=== PATIENT | female | born 1940 | race Caucasian/White ===

== ENCOUNTER → 2017-01-04 | Outpatient (CLI) | payer MEDICARE, OTHER ==
[2014-11-05 12:40] VITALS: BP 135/74
[~2017-01-04] MED LIST: APIX5TAB PO; ASPI-482 PO; BUDE10.2 IH; CALC-31 PO; CYCL10TA2 PO; DILT180C29 PO; LEVO50TA5 PO; METO-239 PO; MULT-245 PO; NAPR250T6 PO; OMEG500C3 PO; OMEP20CA9 PO; PREN1CAP17 PO; PROAIR HFA8.5 GM IH; TRAM50TA PO; TRIA1CAP3 PO
--- NOTE | 2017-01-04 10:59 | CARD ---
APPROVED REPORT EXAM: Two-dimensional and M-mode echocardiogram with Doppler and color Doppler. Other Information Quality : Average INDICATION A-FIB 2D DIMENSIONS RVDd2.1 (2.9-3.5cm)Left Atrium(2D)3.5 (1.6-4.0cm) IVSd1.2 (0.7-1.1cm)Aortic Root(2D)2.9 (2.0-3.7cm) LVDd4.4 (3.9-5.9cm)LVOT Diameter1.9 (1.8-2.4cm) PWd1.3 (0.7-1.1cm)LVDs2.5 (2.5-4.0cm) SV73.3 mlLVEF(%)55.0 (>50%) Aortic Valve AoV Peak Reese.113.4cm/sAoV VTI23.0cm AO Peak GR.5.1mmHgLVOT Peak Reese.96.2cm/s LVOT VTI 19.08cmAO Mean GR.3mmHg ESTRELLA (VMAX)2.22kt7UWO (VTI)2.46cm2 Mitral Valve MV E Mtijmshd970.8cm/sMV DECEL VTJN436oi MV A Rftdahkd70.1cm/sMV E Mean Gr.3mmHg MV XQC57daP/A Ratio6.4 MV A Fqndspdm95hiRKH (PHT)4.60cm2 TDI E/Lateral E'7.5E/Medial E'10.7 Pulmonary Valve PV Peak Gpzbcyif10.3cm/sPV Peak Grad.3mmHg RVOT VTI9.9cm Tricuspid Valve TR P. Toglmcuh954nt/sTR Peak Gr.48mmHg Pulmonary Vein S1 Gylacfzn73.7cm/sD2 Wtsvrbld23.6cm/s LEFT VENTRICLE The left ventricle is normal size. There is borderline to mild concentric left ventricular hypertroph y. The left ventricular systolic function is normal. The ejection fraction is estimated at 55-60%. Th ere is normal LV segmental wall motion. The left ventricular diastolic function and filling is normal for age. RIGHT VENTRICLE The right ventricle is normal size. There is normal right ventricular wall thickness. The right ventr icular systolic function is normal. ATRIA The left atrium size is normal. The right atrium size is normal. The interatrial septum is intact wit h no evidence for an atrial septal defect or patent foramen ovale as noted on 2-D or Doppler imaging. AORTIC VALVE The aortic valve is normal in structure and function. Doppler and Color Flow revealed no significant aortic regurgitation. There is no significant aortic valvular stenosis. MITRAL VALVE The mitral valve is normal in structure and function. Doppler and Color Flow revealed trace to mild m itral regurgitation. TRICUSPID VALVE The tricuspid valve is normal in structure and function. Doppler and Color Flow revealed mild tricusp id regurgitation. The PA pressure was estimated at 50 mmHg. PULMONIC VALVE The pulmonary valve is normal in structure and function. Doppler and Color Flow revealed no pulmonic valvular regurgitation. GREAT VESSELS The aortic root is normal in size. Normal pulmonary venous flow (Doppler). The IVC is normal in size and collapses >50% with inspiration. PERICARDIAL EFFUSION There is no pleural effusion. There is no evidence of significant pericardial effusion. Critical Notification Critical Value: No <Conclusion> The left ventricular systolic function is normal. The ejection fraction is estimated at 55-60%. There is normal LV segmental wall motion. Trace to mild mitral regurgitation. Mild tricuspid regurgitation. The PA pressure was estimated at 50 mmHg. There is no evidence of significant pericardial effusion.
== END | disposition home or self-care (01) ==
LOC: ECHO 09:41
PROVIDERS: ATTEND Internal Medicine Cardiovascular Disease
DX: I08.1 Rheumatic disorders of both mitral and tricuspid valves (principal); I48.91 Unspecified atrial fibrillation
CPT/HCPCS: 93306

== ENCOUNTER 2018-01-10 18:22 | Inpatient (IN) | payer MEDICARE, OTHER ==
[~2018-01-10] VITALS: Ht 165.1 cm; Wt 90.7 kg
--- NOTE | 2018-01-10 19:10 | PHYS DOC ---
Past Medical History Past Medical History: A-Fib, COPD, GERD, High Cholesterol, Hypertension, Hypothyroid, Seizure, Other Additional Past Medical Histor: OBESITY,BACK PAIN,GALLSTONES,EPILEPSY(LAST 1963 ) Past Surgical History: Cholecystectomy, Hysterectomy Additional Past Surgical Histo: CATARACT IMPLANT BILAT,BREAST BX,ROOT CANNALS, OSTOTOMY Alcohol Use: Rarely Drug Use: None Adult General Chief Complaint Chief Complaint: Neck Pain HPI HPI Patient is a 77 year old female who presents with neck pain She has had progressive neck pain, since she woke up Saturday morning. Her neck hurts anytime she moves it. It radiates to both shoulders. She denies any specific trauma. Denies chest pain, shortness breath weakness or numbness. She has a history of spinal stenosis. She's had prior neck fracture with traction in the past. Review of Systems Review of Systems Constitutional: Denies fever or chills Eyes: Denies change in visual acuity, redness, or eye pain HENT: Denies nasal congestion or sore throat Respiratory: Denies cough or shortness of breath Cardiovascular: Denies chest pain or palpitations GI: Denies abdominal pain, nausea, vomiting, bloody stools or diarrhea : Denies dysuria or hematuria Musculoskeletal: With neck and upper back pain, no joint pain Integument: Denies rash or skin lesions Neurologic: Denies headache, focal weakness or sensory changes Endocrine: Denies polyuria or polydipsia All other systems were reviewed and found to be within normal limits, except as documented in this note. Current Medications Current Medications Current Medications Medications (Trade) Dose Ordered Sig/Sonny Start Time Stop Time Status Last Admin Dose Admin Ceftriaxone Sodium 1 gm/ Dextrose 50 ml @ 100 mls/hr Q24H 01/11/18 00:00 UNV Ceftriaxone Sodium 50 ml @ 100 mls/hr 1X ONCE 01/11/18 00:00 01/11/18 00:29 DC 01/11/18 00:43 100 MLS/HR Fentanyl Citrate (Fentanyl 2ml Vial) 50 mcg 1X ONCE 01/10/18 20:30 01/10/18 20:31 DC 01/10/18 20:54 50 MCG Info (CONTRAST GIVEN -- Rx MONITORING) 1 each PRN DAILY PRN 01/10/18 21:30 01/12/18 21:29 Iohexol (Omnipaque 300 Mg/ml) 100 ml 1X ONCE 01/10/18 21:45 01/10/18 21:46 DC 01/10/18 21:41 100 ML Allergies Allergies Allergies Coded Allergies Type Severity Reaction Last Updated Verified Latex, Natural Rubber Allergy Intermediate DOES NOT KNOW 11/05/14 Yes adhesive Allergy Intermediate Hives 11/05/14 Yes oxaprozin Allergy Intermediate Hives 11/05/14 Yes zinc oxide Allergy Intermediate Hives 11/04/14 Yes Physical Exam Physical Exam Constitutional: Well developed, well nourished, no acute distress, non-toxic appearance. HENT: Normocephalic, atraumatic, bilateral external ears normal, oropharynx moist, no oral exudates, nose normal. Eyes: PERRLA, EOMI, conjunctiva normal, no discharge. Neck: Normal range of motion, with marked bilateral paracervical tenderness, no stridor. Patient is unable to lift head off of bed secondary to pain. Cardiovascular: Irregularly irregular rate regular rhythm, no murmur Lungs & Thorax: Bilateral breath sounds clear to auscultation Abdomen: Bowel sounds normal, soft, no tenderness, no masses, no pulsatile masses. Skin: Warm, dry, no erythema, no rash. Back: with bilateral upper dorsal tenderness, no CVA tenderness. Extremities: No tenderness, no cyanosis, no clubbing, ROM intact, no edema. Neurologic: Alert and oriented X 3, normal motor function, normal sensory function, no focal deficits noted. Psychologic: Affect normal, judgement normal, mood normal. Current Patient Data Vital Signs Vital Signs Date Time Temp Pulse Resp B/P (MAP) Pulse Ox O2 Delivery O2 Flow Rate FiO2 01/10/18 23:49 106 148/74 (98) 95 Room Air 01/10/18 18:35 98.0 18 98.0 Lab Values Laboratory Tests Test 01/10/18 20:51 01/10/18 22:50 01/10/18 23:21 White Blood Count 16.7 x10^3/uL (4.0-11.0) H Red Blood Count 4.87 x10^6/uL (3.50-5.40) Hemoglobin 16.1 g/dL (12.0-15.5) H Hematocrit 46.2 % (36.0-47.0) Mean Corpuscular Volume 95 fL (79-100) Mean Corpuscular Hemoglobin 33 pg (25-35) Mean Corpuscular Hemoglobin Concent 35 g/dL (31-37) Red Cell Distribution Width 12.7 % (11.5-14.5) Platelet Count 179 x10^3/uL (140-400) Neutrophils (%) (Auto) 80 % (31-73) H Lymphocytes (%) (Auto) 5 % (24-48) L Monocytes (%) (Auto) 15 % (0-9) H Eosinophils (%) (Auto) 0 % (0-3) Basophils (%) (Auto) 0 % (0-3) Neutrophils # (Auto) 13.4 x10^3uL (1.8-7.7) H Lymphocytes # (Auto) 0.8 x10^3/uL (1.0-4.8) L Monocytes # (Auto) 2.5 x10^3/uL (0.0-1.1) H Eosinophils # (Auto) 0.0 x10^3/uL (0.0-0.7) Basophils # (Auto) 0.1 x10^3/uL (0.0-0.2) Segmented Neutrophils % 87 % (35-66) H Lymphocytes % 2 % (24-48) L Monocytes % 11 % (0-10) H Platelet Estimate Adequate (ADEQUATE) Prothrombin Time 17.8 SEC (11.7-14.0) H Prothrombin Time INR 1.5 (0.8-1.1) H Sodium Level 132 mmol/L (136-145) L Potassium Level 3.6 mmol/L (3.5-5.1) Chloride Level 94 mmol/L (98-107) L Carbon Dioxide Level 28 mmol/L (21-32) Anion Gap 10 (6-14) Blood Urea Nitrogen 19 mg/dL (7-20) Creatinine 1.1 mg/dL (0.6-1.0) H Estimated GFR (Cockcroft-Gault) 48.0 Glucose Level 107 mg/dL (70-99) H Calcium Level 10.5 mg/dL (8.5-10.1) H Troponin I Quantitative 0.024 ng/mL (0.000-0.055) Procalcitonin < 0.10 ng/mL (0.00-0.10) Lactic Acid Level 1.3 mmol/L (0.4-2.0) Urine Collection Type Unknown Urine Color Yellow Urine Clarity Clear Urine pH 6.0 Urine Specific [place] >=1.030 Urine Protein Negative mg/dL (NEG-TRACE) Urine Glucose (UA) Negative mg/dL (NEG) Urine Ketones (Stick) 40 mg/dL (NEG) Urine Blood Large (NEG) Urine Nitrite Positive (NEG) Urine Bilirubin Negative (NEG) Urine Urobilinogen Dipstick 1.0 mg/dL (0.2 mg/dL) Urine Leukocyte Esterase Large (NEG) Urine RBC 6-10 /HPF (0-2) Urine WBC 20-40 /HPF (0-4) Urine Squamous Epithelial Cells Mod /LPF Urine Bacteria Many /HPF (0-FEW) Laboratory Tests 01/10/18 20:51 Laboratory Tests 01/10/18 20:51 Microbiology 01/10/18 Blood Culture - Preliminary, Resulted NO GROWTH AFTER 1 DAY EKG EKG ECG 20:40 Atrial Fibrillation @ [address]-T wave changes. ST depression I II III aVF V4- V6 Radiology/Procedures Radiology/Procedures [facility] [address] [place] [address] IMAGING REPORT Signed PATIENT: NGUYỄN DOBBS ACCOUNT: [id number] : 1940 LOCATION: ER AGE: 77 SEX: F EXAM STATUS: REG ER ORD. PHYSICIAN: RILEY LUCAS MD REASON: pain PROCEDURE: CT CERVICAL SPINE WO CONTRAST CT cervical spine History: Pain, no injury. Comparison: None. Technique: Noncontrast CT of the cervical spine was performed using helical technique. Axial, sagittal, coronal reconstructions were obtained. Exposure: One or more of the following individualized dose reduction techniques were utilized for this examination: 1. Automated exposure control 2. Adjustment of the mA and/or kV according to patient size 3. Use of iterative reconstruction technique Findings: There is no evidence of acute fracture or acute malalignment involving the cervical spine. No prevertebral soft tissue swelling is identified. Multilevel degeneration is seen with facet and uncovertebral hypertrophy as well as degenerative disc disease. Large amount of pannus formation is seen involving the dens. The dens also demonstrates cystic change. Right thyroid lobe is heterogeneous and enlarged with some peripheral calcifications. Impression: 1. No evidence of acute traumatic injury involving the cervical spine. 2. Degeneration. 3. Enlarged, heterogeneous right thyroid lobe, probably from nodule. Electronically signed by: Juan Cronin MD (01/10/2018 7:52 PM) [facility] DICTATED and SIGNED BY: JUAN CRONIN MD DATE: 01/10/181947 [facility] [address] [place] [address] IMAGING REPORT Signed PATIENT: NGUYỄN DOBBS ACCOUNT: [id number] : 1940 LOCATION: ER AGE: 77 SEX: F EXAM STATUS: REG ER ORD. PHYSICIAN: RILEY LUCAS MD REASON: Rule out dissection PROCEDURE: CTA HEAD/NECK - CODE STROKE CT angiogram of the neck with intravenous contrast and CT angiogram of the head with intravenous contrast History: Pain. Rule out dissection. Comparison: CT cervical spine earlier January 10, 2018. Technique: Noncontrast CT of the head was initially performed. After administration of intravenous contrast, 60 mL Omnipaque-300, CT angiogram of the neck with attention to the arteries was performed. Axial 2-D reconstructions were obtained. Rotating 3-D volume rendered reconstructions of the neck arteries were also obtained. Sagittal and coronal 3-D MIPS were obtained of the neck arteries. Using the same bolus, CT angiogram of the head with attention to the arteries was performed. Axial 2-D reconstructions were obtained. Sagittal and coronal 3-D MIPS were obtained of the arteries. Rotating volume rendered reconstructions of the intracranial arteries were also obtained. Exposure: One or more of the following individualized dose reduction techniques were utilized for this examination: 1. Automated exposure control 2. Adjustment of the mA and/or kV according to patient size 3. Use of iterative reconstruction technique Findings: CTA of the neck: Right brachiocephalic artery and the left common carotid artery demonstrates a common origin from the aortic arch. Right brachiocephalic artery is patent. Right common carotid artery is patent. Mild calcified and noncalcified plaquing is seen involving the right carotid bulb. No significant cervical right internal carotid artery stenosis is identified. Left common carotid artery is patent. Mild calcified and noncalcified plaquing is seen involving the left carotid bulb. Cervical left internal carotid artery is patent. Cervical portions of both vertebral arteries are patent. Visualized lungs demonstrate mosaic attenuation. The right thyroid lobe demonstrates 2.0 cm low-density nodule. Bilateral parotid and submandibular glands appear symmetric. No neck lymphadenopathy is seen. CTA of the head: Noncontrast images demonstrate no evidence of acute intracranial hemorrhage. No obvious acute ischemic infarction is seen. Patchy, nonspecific white matter low-attenuation is present, probably from chronic microvascular ischemic disease. No obvious intracranial mass is appreciated. Intracranial portions of both vertebral arteries are patent. Basilar artery is patent. Bilateral posterior cerebral arteries are patent. Left posterior communicating artery is visualized. Right posterior communicating artery is not confidently identified. Terminal portions of both internal carotid arteries. Bilateral anterior and middle cerebral arteries are patent. The anterior communicating artery is thought visualized. No intracranial aneurysm is identified. Dural venous sinuses enhance appropriately. Impression: 1. Negative CT angiogram of the neck and head. No evidence of carotid or vertebral dissection. 2. Thyroid nodule. Stenosis calculations for CT, MR and conventional angiography are based upon measurement of the distal ICA diameter in accordance with the NASCET methodology. Stenosis calculations for carotid ultrasound studies are derived from validated velocity criteria which are known to correlate with the NASCET methodology. Electronically signed by: Juan Cronin MD (01/10/2018 10:01 PM) [facility] DICTATED and SIGNED BY: JUAN CRONIN MD DATE: 01/10/182150 [facility] [address] [place] [address] IMAGING REPORT Signed PATIENT: NGUYỄN DOBBS ACCOUNT: [id number] : 1940 LOCATION: ER AGE: 77 SEX: F EXAM STATUS: REG ER ORD. PHYSICIAN: RILEY LUCAS MD REASON: cough/leukocytosis PROCEDURE: PORTABLE CHEST 1V Exam: AP portable chest History: Shortness of breath. COPD. Comparison: July 12, 2014. Findings: The heart and mediastinal structures are within normal limits for size. Lungs are without infiltrate. No pleural effusion or pneumothorax is identified. Impression: 1. No acute cardiopulmonary process. Electronically signed by: Juan Cronin MD (01/10/2018 11:16 PM) [facility] DICTATED and SIGNED BY: JUAN CRONIN MD DATE: 01/10/18 2315 [facility] [address] [place] [address] IMAGING REPORT Signed PATIENT: NGUYỄN DOBBS ACCOUNT: [id number] : 1940 LOCATION: [address] [place] [address] AGE: 77 SEX: F EXAM STATUS: ADM IN ORD. PHYSICIAN: RILEY LUCAS MD REASON: back pain UTI PROCEDURE: CT ABDOMEN PELVIS WO CONTRAST EXAM: CT Abdomen and Pelvis without IV contrast CLINICAL HISTORY: back pain; uti;eval for stone. COMPARISON: none TECHNIQUE: Helical CT of the abdomen and pelvis without intravenous contrast. Axial, coronal and sagittal reformatted images were generated. PQRS compliance statement - One or more of the following individualized dose reduction techniques were utilized for this study: 1. Automated exposure control 2. Adjustment of the mA and/or kV according to patient size 3. Use of iterative reconstruction technique FINDINGS: Lack of intravenous contrast limits evaluation of solid organs, vasculature, and lymph nodes. Lower chest: Dependent opacities in the lung bases bilaterally likely atelectasis. Mild cardiomegaly. Mitral annular calcifications are seen. Abdomen and Pelvis: No focal liver lesion. Cholecystectomy clips are seen. Common bile duct measures 1.1 cm, likely physiologic in this patient postcholecystectomy. Spleen is unremarkable. Adrenal glands are normal. Pancreas is unremarkable. No focal renal lesion. Contrast material is seen within the renal collecting systems limiting evaluation for renal calculi. Within these constraints no definite renal calculus is seen and there is no hydronephrosis to suggest obstructing calculus. The bladder is distended with contrast. Moderate colonic stool content. Appendix is normal. No abdominal or pelvic ascites. No lymphadenopathy. Atherosclerotic calcifications of aorta are seen. There has been a hysterectomy. Bones: Bilateral hip joint and symphysis pubis degenerative changes are seen with chondrocalcinosis. Degenerative changes of the spine are seen with trace anterolisthesis of L3 and L4 and L4 and L5 likely degenerative. IMPRESSION: 1. Contrast material from prior IV administration is seen within the renal collecting system. This limits evaluation for renal tract calculi. Within these constraints no definite renal tract calculus is identified. No hydronephrosis. 2. No evidence for bowel obstruction. 3. No biliary ductal dilatation in this patient postcholecystectomy. Electronically signed by: Mo Philippe MD (01/11/2018 12:32 AM) [facility] DICTATED and SIGNED BY: MO PHILIPPE MD DATE: 01/11/18 0023 Course & Med Decision Making Course & Med Decision Making Pertinent Labs and Imaging studies reviewed. (See chart for details) Emergency Department Course Patient presents with progressive neck pain DDx- fracture, strain, dissection, ACS Patient was stable in the ED, 19:25 Patient was placed in c-collar by me. CT C-spine ordered 22:45 Patient's CTA head and neck were unremarkable. C-collar removed. Patient has marked neck pain, unable to move head off of bed secondary to pain. Labs remarkable for leukocytosis, U/A showed UTI. CT abdomen pelvis showed no hydronephrosis or kidney stones. Patient was given Rocephin IV. ECG and troponin showed no evidence of ACS. Noting UTI, leukocytosis and severe pain, hospitalist was paged. 06:[address] Kristi Gonzalez who agreed with admission. Dragon Disclaimer Dragon Disclaimer This electronic medical record was generated, in whole or in part, using a voice recognition dictation system. Departure Departure Impression: Primary Impression: Pyelonephritis Additional Impressions: Dehydration Leukocytosis Neck pain Weakness Disposition: ADMITTED INPATIENT Admitting Physician: Xie. Rivera Condition: STABLE Referrals: JUAN MAZARIEGOS MD (PCP) Problem Qualifiers RILEY LUCAS MD Jan 10, 2018 19:10
--- NOTE | 2018-01-10 19:55 | RAD ---
CT cervical spine History: Pain, no injury. Comparison: None. Technique: Noncontrast CT of the cervical spine was performed using helical technique. Axial, sagittal, coronal reconstructions were obtained. Exposure: One or more of the following individualized dose reduction techniques were utilized for this examination: 1. Automated exposure control 2. Adjustment of the mA and/or kV according to patient size 3. Use of iterative reconstruction technique Findings: There is no evidence of acute fracture or acute malalignment involving the cervical spine. No prevertebral soft tissue swelling is identified. Multilevel degeneration is seen with facet and uncovertebral hypertrophy as well as degenerative disc disease. Large amount of pannus formation is seen involving the dens. The dens also demonstrates cystic change. Right thyroid lobe is heterogeneous and enlarged with some peripheral calcifications. Impression: 1. No evidence of acute traumatic injury involving the cervical spine. 2. Degeneration. 3. Enlarged, heterogeneous right thyroid lobe, probably from nodule. Electronically signed by: Juan Guajardo MD (01/10/2018 7:52 PM) [facility]
[2018-01-10] MEDS ORDERED: fentaNYL PF VIAL 100 MCG/2 ML VIAL IV ONE (20:30)
[2018-01-10 21:00] LABS: BASO # 0.1 x10^3/uL (0.0-0.2); BASO % 0 % (0-3); EOS % 0 % (0-3); HEMATOCRIT 46.2 % (36.0-47.0); HEMOGLOBIN 16.1 g/dL (12.0-15.5); LYMPH # 0.8 x10^3/uL (1.0-4.8); LYMPH % 5 % (24-48); MEAN CORPUSCULAR HEMOGLOBIN 33 pg (25-35); MEAN CORPUSCULAR HGB CONC 35 g/dL (31-37); MEAN CORPUSCULAR VOLUME 95 fL (79-100); MONO # 2.5 x10^3/uL (0.0-1.1); MONO % 15 % (0-9); NEUT # 13.4 x10^3uL (1.8-7.7); NEUT % 80 % (31-73); PLATELET COUNT 179 x10^3/uL (140-400); RED BLOOD COUNT 4.87 x10^6/uL (3.50-5.40); RED CELL DISTRIBUTION WIDTH 12.7 % (11.5-14.5); WHITE BLOOD COUNT 16.7 x10^3/uL (4.0-11.0)
[2018-01-10 21:10] LABS: CALCIUM 10.5 mg/dL (8.5-10.1); CREATININE 1.1 mg/dL (0.6-1.0); POTASSIUM 3.6 mmol/L (3.5-5.1)
[2018-01-10] MEDS ORDERED: CONTRAST GIVEN. MC PRN (21:30)
[2018-01-10 21:39] LABS: % LYMPHS 2 % (24-48); % MONOS 11 % (0-10); % SEGS 87 % (35-66); PLT ESTIMATE ADEQUATE (ADEQUATE)
[2018-01-10] MEDS ORDERED: IOHEXOL 300 MG/ML 100ML VIAL. IV ONE (21:45)
--- NOTE | 2018-01-10 22:03 | EKG ---
[facility] [address] [place] [address] Test Date: 2018-01-10 Test Time: 20:44:17 Pat Name: NGUYỄN DOBBS Department: Room: Gender: F Lead Systems Architect: : 1940 Requested By: RILEY LUCAS Order Number: [id number] Reading MD: Nicholas Weems MD Measurements Intervals [place] Rate: 99 P: PA: QRS: 28 QRSD: 78 T: -20 QT: 336 QTc: 436 Interpretive Statements ATRIAL FIBRILLATION NON-SPECIFIC ST/T CHANGES Electronically Signed On 01-11-2018 13:49:48 CDT by Nicholas Weems MD
--- NOTE | 2018-01-10 22:05 | RAD ---
CT angiogram of the neck with intravenous contrast and CT angiogram of the head with intravenous contrast History: Pain. Rule out dissection. Comparison: CT cervical spine earlier January 10, 2018. Technique: Noncontrast CT of the head was initially performed. After administration of intravenous contrast, 60 mL Omnipaque-300, CT angiogram of the neck with attention to the arteries was performed. Axial 2-D reconstructions were obtained. Rotating 3-D volume rendered reconstructions of the neck arteries were also obtained. Sagittal and coronal 3-D MIPS were obtained of the neck arteries. Using the same bolus, CT angiogram of the head with attention to the arteries was performed. Axial 2-D reconstructions were obtained. Sagittal and coronal 3-D MIPS were obtained of the arteries. Rotating volume rendered reconstructions of the intracranial arteries were also obtained. Exposure: One or more of the following individualized dose reduction techniques were utilized for this examination: 1. Automated exposure control 2. Adjustment of the mA and/or kV according to patient size 3. Use of iterative reconstruction technique Findings: CTA of the neck: Right brachiocephalic artery and the left common carotid artery demonstrates a common origin from the aortic arch. Right brachiocephalic artery is patent. Right common carotid artery is patent. Mild calcified and noncalcified plaquing is seen involving the right carotid bulb. No significant cervical right internal carotid artery stenosis is identified. Left common carotid artery is patent. Mild calcified and noncalcified plaquing is seen involving the left carotid bulb. Cervical left internal carotid artery is patent. Cervical portions of both vertebral arteries are patent. Visualized lungs demonstrate mosaic attenuation. The right thyroid lobe demonstrates 2.0 cm low-density nodule. Bilateral parotid and submandibular glands appear symmetric. No neck lymphadenopathy is seen. CTA of the head: Noncontrast images demonstrate no evidence of acute intracranial hemorrhage. No obvious acute ischemic infarction is seen. Patchy, nonspecific white matter low-attenuation is present, probably from chronic microvascular ischemic disease. No obvious intracranial mass is appreciated. Intracranial portions of both vertebral arteries are patent. Basilar artery is patent. Bilateral posterior cerebral arteries are patent. Left posterior communicating artery is visualized. Right posterior communicating artery is not confidently identified. Terminal portions of both internal carotid arteries. Bilateral anterior and middle cerebral arteries are patent. The anterior communicating artery is thought visualized. No intracranial aneurysm is identified. Dural venous sinuses enhance appropriately. Impression: 1. Negative CT angiogram of the neck and head. No evidence of carotid or vertebral dissection. 2. Thyroid nodule. Stenosis calculations for CT, MR and conventional angiography are based upon measurement of the distal ICA diameter in accordance with the NASCET methodology. Stenosis calculations for carotid ultrasound studies are derived from validated velocity criteria which are known to correlate with the NASCET methodology. Electronically signed by: Juan Guajardo MD (01/10/2018 10:01 PM) [facility]
[2018-01-10 22:51] LABS: PROTHROMBIN TIME PATIENT 17.8 SEC (11.7-14.0)
--- NOTE | 2018-01-10 23:19 | RAD ---
Exam: AP portable chest History: Shortness of breath. COPD. Comparison: July 12, 2014. Findings: The heart and mediastinal structures are within normal limits for size. Lungs are without infiltrate. No pleural effusion or pneumothorax is identified. Impression: 1. No acute cardiopulmonary process. Electronically signed by: Juan Guajardo MD (01/10/2018 11:16 PM) [facility]
[2018-01-10 23:32] LABS: BILIRUBIN,URINE NEGATIVE (NEG); CLARITY,URINE CLEAR; COLOR,URINE YELLOW; NITRITE,URINE POSITIVE (NEG); PROTEIN,URINE NEGATIVE (NEG-TRACE)
[2018-01-10 23:37] LABS: BACTERIA,URINE MANY /HPF (0-FEW); SQUAMOUS EPITHELIAL CELL,UR MOD /LPF; WBC,URINE 20-40 /HPF (0-4)
[2018-01-11] VITALS (7 sets, daily range): BP systolic 99–148; BP diastolic 51–83
--- NOTE | 2018-01-11 00:36 | RAD ---
EXAM: CT Abdomen and Pelvis without IV contrast CLINICAL HISTORY: back pain; uti;eval for stone. COMPARISON: none TECHNIQUE: Helical CT of the abdomen and pelvis without intravenous contrast. Axial, coronal and sagittal reformatted images were generated. PQRS compliance statement - One or more of the following individualized dose reduction techniques were utilized for this study: 1. Automated exposure control 2. Adjustment of the mA and/or kV according to patient size 3. Use of iterative reconstruction technique FINDINGS: Lack of intravenous contrast limits evaluation of solid organs, vasculature, and lymph nodes. Lower chest: Dependent opacities in the lung bases bilaterally likely atelectasis. Mild cardiomegaly. Mitral annular calcifications are seen. Abdomen and Pelvis: No focal liver lesion. Cholecystectomy clips are seen. Common bile duct measures 1.1 cm, likely physiologic in this patient postcholecystectomy. Spleen is unremarkable. Adrenal glands are normal. Pancreas is unremarkable. No focal renal lesion. Contrast material is seen within the renal collecting systems limiting evaluation for renal calculi. Within these constraints no definite renal calculus is seen and there is no hydronephrosis to suggest obstructing calculus. The bladder is distended with contrast. Moderate colonic stool content. Appendix is normal. No abdominal or pelvic ascites. No lymphadenopathy. Atherosclerotic calcifications of aorta are seen. There has been a hysterectomy. Bones: Bilateral hip joint and symphysis pubis degenerative changes are seen with chondrocalcinosis. Degenerative changes of the spine are seen with trace anterolisthesis of L3 and L4 and L4 and L5 likely degenerative. IMPRESSION: 1. Contrast material from prior IV administration is seen within the renal collecting system. This limits evaluation for renal tract calculi. Within these constraints no definite renal tract calculus is identified. No hydronephrosis. 2. No evidence for bowel obstruction. 3. No biliary ductal dilatation in this patient postcholecystectomy. Electronically signed by: Mo Sullivan MD (01/11/2018 12:32 AM) [facility]
[2018-01-11] MEDS ORDERED: MORPHINE SULFATE 4 MG/ML VIAL. IV ONE (00:45)
[2018-01-11] MEDS ORDERED: MORPHINE SULFATE 4 MG/ML VIAL. IV PRN (00:45)
[2018-01-11] MEDS ORDERED: INFLUENZA VAX SCREEN BY RX. MC PRN (02:45)
[2018-01-11] MEDS ORDERED: METO50TA6 PO (03:20)
[2018-01-11] MEDS ORDERED: FURO20TA3 PO (03:20)
[2018-01-11] MEDS ORDERED: UMEC1DIS IH (03:20)
[2018-01-11] MEDS ORDERED: LISI10TA2 PO (03:20)
[2018-01-11] MEDS ORDERED: IV NORMAL SALINE 1000ML BAG 1,000 ML IV SCH (07:26)
[2018-01-11] MEDS: IV 1/2 NORMAL SALINE 1,000 ML IV SCH ×2 (07:26→20:00)
[2018-01-11] MEDS ORDERED: HYDROcodone/APAP 5/325MG 1 TAB TABLET PO PRN (07:30)
[2018-01-11] MEDS ORDERED: traMADol 50 MG TABLET PO PRN (07:30)
[2018-01-11] MEDS: BUDESONIDE 0.5 MG/2 ML NEBU. NEB SCH ×2 (08:53→19:35)
[2018-01-11] MEDS: ASPIRIN ENTERIC COATED 81 MG TABLET.DR. PO SCH (08:53)
[2018-01-11] MEDS: TRIAMTERENE/HCTZ 37.5/25MG TABLET. PO SCH (08:53)
[2018-01-11] MEDS: OMEGA-3 FATTY ACIDS/FISH OIL 1,000 MG CAPSULE. PO SCH (08:53)
[2018-01-11] MEDS: ALBUTEROL SULFATE 2.5 MG/3 ML NEBU. NEB SCH ×4 (08:53→19:35)
[2018-01-11] MEDS: LEVOTHYROXINE 50 MCG TABLET PO SCH (08:54)
[2018-01-11] MEDS: CALCIUM CARB/VIT D3 500/200 TABLET. PO SCH (08:54)
[2018-01-11] MEDS: APIXABAN 5 MG TABLET. PO SCH ×2 (08:54→21:00)
[2018-01-11] MEDS: LISINOPRIL 10 MG TABLET PO SCH (08:54)
[2018-01-11] MEDS: MULTIVITAMIN with MINERAL TABLET. PO SCH (08:54)
[2018-01-11] MEDS: FUROSEMIDE 20 MG TABLET PO SCH (08:55)
[2018-01-11] MEDS: METOPROLOL TART IMMED RELEASE 50 MG TABLET. PO SCH ×2 (08:55→21:00)
[2018-01-11] MEDS: PANTOPRAZOLE 40 MG TABLET.DR. PO SCH (08:55)
[2018-01-11] MEDS ORDERED: NON FORMULARY ITEM (Umeclidinium Brm/Vilanterol Tr (Anoro Ellipta 62.5-25 Mcg Inh) 1 EACH) IH SCH (09:00)
[2018-01-11] MEDS ORDERED: ENOXAPARIN 40 MG/0.4 ML SYRINGE. SQ SCH (09:00)
--- NOTE | 2018-01-11 09:57 | HP ---
ADMIT DATE: 01/11/2018 CHIEF COMPLAINT: Back pain and neck pain. HISTORY OF PRESENT ILLNESS AND HOSPITAL COURSE: The patient is a 77-year-old female who is 1-week history of progressive back pain. Her pain was generalized in the mid to low back and now has increasing neck pain, radiating to both shoulders. During ER evaluation, the patient was found to have elevated white count with evidence of pyelonephritis on exam and with urine specimen. Due to severity of symptoms and intractable pain, she was admitted for IV antibiotics, hydration and further evaluation with PT and OT modalities. PAST MEDICAL HISTORY: Significant for 1. Hypertension. 2. Hypothyroidism. 3. Esophageal reflux disease. 4. COPD with asthma. 5. Degenerative disk disease. 6. Atrial fibrillation, status post cardioversion. MEDICATIONS ON ADMISSION: Lisinopril 10 mg daily, diltiazem 360 mg daily, triamterene/hydrochlorothiazide 37.5/25 daily, metoprolol 50 mg b.i.d., Eliquis 5 mg b.i.d., Synthroid 75 mcg daily, Lasix 20 mg daily, aspirin 81 mg daily, omeprazole 20 mg daily, Ventolin HFA inhaler 2 puffs q.6 hours p.r.n. Anoro inhaler 1 puff daily, tramadol 50 mg q.6 p.r.n., vitamins daily, fish oil 1000 mg daily, calcium with vitamin D 500/400 mg vitamin D daily. PAST SURGICAL HISTORY: Significant for 1. Cataract removal and lens implants. 2. Cholecystectomy. 3. Breast biopsy. 4. Hysterectomy. FAMILY HISTORY: Mother with complications of stomach ulcers. Father with kidney failure. SOCIAL HISTORY: The patient has never smoked. She does not use alcohol. She is retired and lives with her roommate. GYNECOLOGIC HISTORY: The patient has had 2 pregnancies and deliveries. ALLERGIES: THE PATIENT EXHIBITS ALLERGIES TO ZINC OXIDE, TAPE, BANANA BOAT SUNBLOCK, POISON PETRA OAK AND SUMAC. No medications. REVIEW OF SYSTEMS: The patient was in normal health until approximately 5 days ago when she began having increasing neck and back pain. This worsened to the point where she came to Emergency Room for further evaluation. She denies any nausea, vomiting, recent weight loss, shortness of breath, chest pain, abdominal pain or night sweats. PHYSICAL EXAMINATION: GENERAL: This is a well-nourished, moderately obese female, in no apparent distress on my exam. She is alert and oriented. HEENT: Benign. NECK: Supple. CARDIAC: Regular rate and rhythm. LUNGS: Clear. ABDOMEN: Soft, nontender. EXTREMITIES: 2+ pulses without edema. NEUROLOGIC: Showed no unilateral findings. She did have some point tenderness in her flank on the right side. CT neck showed arthritis and incidental thyroid nodule on the right lobe of her thyroid, but no acute findings. ASSESSMENT: 1. Pyelonephritis. 2. Osteoarthritis of neck with exacerbation. 3. Leukocytosis. 4. Hyponatremia. PLAN: To proceed with IV antibiotics, IV fluids and PT and OT modalities. ELIZABETH MAZARIEGOS MD DR: CONCEPCIÓN/gisele JOB#: [id number] / [id number]
[2018-01-11] MEDS: LACTOBACILLUS RHAMNOSUS GG 1 CAPSULE. PO SCH (21:00)
[2018-01-11] MEDS: cefTRIAXone IV Push 1 GM VIAL. IVP SCH (21:00)
[2018-01-11] MEDS: HYDROcodone/APAP 5/325MG 1 TAB TABLET PO PRN (21:09)
[2018-01-12 03:00] VITALS: BP 151/69
[2018-01-12] MEDS: LEVOTHYROXINE 50 MCG TABLET PO SCH (05:07)
[2018-01-12] MEDS: HYDROcodone/APAP 5/325MG 1 TAB TABLET PO PRN ×4 (05:07→22:34)
[2018-01-12] MEDS: IV 1/2 NORMAL SALINE 1,000 ML IV SCH (05:08)
[2018-01-12 05:50] LABS: BASO % 0 % (0-3); EOS # 0.1 x10^3/uL (0.0-0.7); EOS % 1 % (0-3); HEMATOCRIT 42.8 % (36.0-47.0); HEMOGLOBIN 14.5 g/dL (12.0-15.5); LYMPH # 0.7 x10^3/uL (1.0-4.8); LYMPH % 8 % (24-48); MEAN CORPUSCULAR HEMOGLOBIN 33 pg (25-35); MEAN CORPUSCULAR HGB CONC 34 g/dL (31-37); MEAN CORPUSCULAR VOLUME 96 fL (79-100); MONO # 1.4 x10^3/uL (0.0-1.1); MONO % 16 % (0-9); NEUT # 6.7 x10^3uL (1.8-7.7); NEUT % 75 % (31-73); PLATELET COUNT 175 x10^3/uL (140-400); RED BLOOD COUNT 4.47 x10^6/uL (3.50-5.40)
[2018-01-12 06:04] LABS: CALCIUM 9.2 mg/dL (8.5-10.1); CREATININE 1.3 mg/dL (0.6-1.0); GFR 39.6; POTASSIUM 3.5 mmol/L (3.5-5.1)
[2018-01-12 07:00] VITALS: BP 129/72
[2018-01-12] MEDS ORDERED: IRON PO SCH (07:00)
[2018-01-12] MEDS ORDERED: DHA PO SCH (07:00)
[2018-01-12] MEDS ORDERED: DSS PO SCH (07:00)
[2018-01-12] MEDS ORDERED: PRENATAL PO SCH (07:00)
[2018-01-12] MEDS ORDERED: [UNRECOGNIZED DRUG - OTHER] PO SCH (07:00)
[2018-01-12] MEDS: BUDESONIDE 0.5 MG/2 ML NEBU. NEB SCH ×2 (07:42→20:17)
[2018-01-12] MEDS: ALBUTEROL SULFATE 2.5 MG/3 ML NEBU. NEB SCH ×4 (07:42→20:17)
[2018-01-12] MEDS: CALCIUM CARB/VIT D3 500/200 TABLET. PO SCH (08:07)
[2018-01-12] MEDS: MULTIVITAMIN with MINERAL TABLET. PO SCH (08:08)
[2018-01-12] MEDS: APIXABAN 5 MG TABLET. PO SCH ×2 (08:08→20:27)
[2018-01-12] MEDS: ASPIRIN ENTERIC COATED 81 MG TABLET.DR. PO SCH (08:08)
[2018-01-12] MEDS: TRIAMTERENE/HCTZ 37.5/25MG TABLET. PO SCH (08:08)
[2018-01-12] MEDS: LACTOBACILLUS RHAMNOSUS GG 1 CAPSULE. PO SCH ×2 (08:09→20:27)
[2018-01-12] MEDS: PANTOPRAZOLE 40 MG TABLET.DR. PO SCH (08:09)
[2018-01-12] MEDS: METOPROLOL TART IMMED RELEASE 50 MG TABLET. PO SCH ×2 (08:09→20:29)
[2018-01-12] MEDS: LISINOPRIL 10 MG TABLET PO SCH (08:10)
[2018-01-12] MEDS: OMEGA-3 FATTY ACIDS/FISH OIL 1,000 MG CAPSULE. PO SCH (08:10)
[2018-01-12 11:00] VITALS: BP 108/61
[2018-01-12] MEDS ORDERED: METHOCARBAMOL 500 MG TABLET PO PRN (13:30)
--- NOTE | 2018-01-12 14:24 | PDOC ---
PROGRESS NOTES Subjective Subjective Patient feeling better. Patient continues to have neck pain. Objective Objective Vital Signs Date Time Temp Pulse Resp B/P (MAP) Pulse Ox O2 Delivery O2 Flow Rate FiO2 01/12/18 13:35 95 Room Air 01/12/18 11:00 98.1 90 18 108/61 (77) 98.1 Intake and Output 01/12/18 07:00 Intake Total 1540 ml Balance 1540 ml Intake Oral 1540 ml # Voids 3 # Bowel Movements 1 Physical Exam Abdomen: Normal bowel sounds Heart: Regular rate Extremities: No edema General: Alert Lungs: Clear to auscultation Assessment Assessment Problems Medical Problems: (1) Dehydration Status: Acute (2) Leukocytosis Status: Acute (3) Neck pain Status: Acute (4) Pyelonephritis Status: Acute (5) Weakness Status: Acute 1. Pyelonephritis. 2. Osteoarthritis of neck with exacerbation. PAST MEDICAL HISTORY: Significant for 1. Hypertension. 2. Hypothyroidism. 3. Esophageal reflux disease. 4. COPD with asthma. 5. Degenerative disk disease. 6. Atrial fibrillation, status post cardioversion. Plan Plan of Care Continue IV antibiotics Await urine culture Proceed with PT OT eval and treat Consult Dr. Curry for neck pain Comment Review of Relevant I have reviewed the following items aaliyah (where applicable) has been applied. Labs Laboratory Tests Test 01/10/18 20:51 01/10/18 22:50 01/10/18 23:21 01/12/18 05:00 White Blood Count 16.7 x10^3/uL (4.0-11.0) 9.0 x10^3/uL (4.0-11.0) Red Blood Count 4.87 x10^6/uL (3.50-5.40) 4.47 x10^6/uL (3.50-5.40) Hemoglobin 16.1 g/dL (12.0-15.5) 14.5 g/dL (12.0-15.5) Hematocrit 46.2 % (36.0-47.0) 42.8 % (36.0-47.0) Mean Corpuscular Volume 95 fL (79-100) 96 fL (79-100) Mean Corpuscular Hemoglobin 33 pg (25-35) 33 pg (25-35) Mean Corpuscular Hemoglobin Concent 35 g/dL (31-37) 34 g/dL (31-37) Red Cell Distribution Width 12.7 % (11.5-14.5) 13.0 % (11.5-14.5) Platelet Count 179 x10^3/uL (140-400) 175 x10^3/uL (140-400) Neutrophils (%) (Auto) 80 % (31-73) 75 % (31-73) Lymphocytes (%) (Auto) 5 % (24-48) 8 % (24-48) Monocytes (%) (Auto) 15 % (0-9) 16 % (0-9) Eosinophils (%) (Auto) 0 % (0-3) 1 % (0-3) Basophils (%) (Auto) 0 % (0-3) 0 % (0-3) Neutrophils # (Auto) 13.4 x10^3uL (1.8-7.7) 6.7 x10^3uL (1.8-7.7) Lymphocytes # (Auto) 0.8 x10^3/uL (1.0-4.8) 0.7 x10^3/uL (1.0-4.8) Monocytes # (Auto) 2.5 x10^3/uL (0.0-1.1) 1.4 x10^3/uL (0.0-1.1) Eosinophils # (Auto) 0.0 x10^3/uL (0.0-0.7) 0.1 x10^3/uL (0.0-0.7) Basophils # (Auto) 0.1 x10^3/uL (0.0-0.2) 0.0 x10^3/uL (0.0-0.2) Segmented Neutrophils % 87 % (35-66) Lymphocytes % 2 % (24-48) Monocytes % 11 % (0-10) Platelet Estimate Adequate (ADEQUATE) Prothrombin Time 17.8 SEC (11.7-14.0) Prothromb Time International Ratio 1.5 (0.8-1.1) Sodium Level 132 mmol/L (136-145) 139 mmol/L (136-145) Potassium Level 3.6 mmol/L (3.5-5.1) 3.5 mmol/L (3.5-5.1) Chloride Level 94 mmol/L (98-107) 101 mmol/L (98-107) Carbon Dioxide Level 28 mmol/L (21-32) 28 mmol/L (21-32) Anion Gap 10 (6-14) 10 (6-14) Blood Urea Nitrogen 19 mg/dL (7-20) 31 mg/dL (7-20) Creatinine 1.1 mg/dL (0.6-1.0) 1.3 mg/dL (0.6-1.0) Estimated GFR (Cockcroft-Gault) 48.0 39.6 Glucose Level 107 mg/dL (70-99) 100 mg/dL (70-99) Calcium Level 10.5 mg/dL (8.5-10.1) 9.2 mg/dL (8.5-10.1) Troponin I Quantitative 0.024 ng/mL (0.000-0.055) Procalcitonin < 0.10 ng/mL (0.00-0.10) Lactic Acid Level 1.3 mmol/L (0.4-2.0) Urine Collection Type Unknown Urine Color Yellow Urine Clarity Clear Urine pH 6.0 Urine Specific [place] >=1.030 Urine Protein Negative mg/dL (NEG-TRACE) Urine Glucose (UA) Negative mg/dL (NEG) Urine Ketones (Stick) 40 mg/dL (NEG) Urine Blood Large (NEG) Urine Nitrite Positive (NEG) Urine Bilirubin Negative (NEG) Urine Urobilinogen Dipstick 1.0 mg/dL (0.2 mg/dL) Urine Leukocyte Esterase Large (NEG) Urine RBC 6-10 /HPF (0-2) Urine WBC 20-40 /HPF (0-4) Urine Squamous Epithelial Cells Mod /LPF Urine Bacteria Many /HPF (0-FEW) Laboratory Tests Test 01/12/18 05:00 White Blood Count 9.0 x10^3/uL (4.0-11.0) Red Blood Count 4.47 x10^6/uL (3.50-5.40) Hemoglobin 14.5 g/dL (12.0-15.5) Hematocrit 42.8 % (36.0-47.0) Mean Corpuscular Volume 96 fL (79-100) Mean Corpuscular Hemoglobin 33 pg (25-35) Mean Corpuscular Hemoglobin Concent 34 g/dL (31-37) Red Cell Distribution Width 13.0 % (11.5-14.5) Platelet Count 175 x10^3/uL (140-400) Neutrophils (%) (Auto) 75 % (31-73) Lymphocytes (%) (Auto) 8 % (24-48) Monocytes (%) (Auto) 16 % (0-9) Eosinophils (%) (Auto) 1 % (0-3) Basophils (%) (Auto) 0 % (0-3) Neutrophils # (Auto) 6.7 x10^3uL (1.8-7.7) Lymphocytes # (Auto) 0.7 x10^3/uL (1.0-4.8) Monocytes # (Auto) 1.4 x10^3/uL (0.0-1.1) Eosinophils # (Auto) 0.1 x10^3/uL (0.0-0.7) Basophils # (Auto) 0.0 x10^3/uL (0.0-0.2) Sodium Level 139 mmol/L (136-145) Potassium Level 3.5 mmol/L (3.5-5.1) Chloride Level 101 mmol/L (98-107) Carbon Dioxide Level 28 mmol/L (21-32) Anion Gap 10 (6-14) Blood Urea Nitrogen 31 mg/dL (7-20) Creatinine 1.3 mg/dL (0.6-1.0) Estimated GFR (Cockcroft-Gault) 39.6 Glucose Level 100 mg/dL (70-99) Calcium Level 9.2 mg/dL (8.5-10.1) Microbiology 01/10/18 Blood Culture - Preliminary, Resulted NO GROWTH AFTER 1 DAY Medications Current Medications Fentanyl Citrate (Fentanyl 2ml Vial) 50 mcg 1X ONCE IV Last administered on at 20:54; Start 01/10/18 at 20:30; Stop 01/10/18 at 20:31; Status DC Iohexol (Omnipaque 300 Mg/ml) 100 ml 1X ONCE IV Last administered on at 21:41; Start 01/10/18 at 21:45; Stop 01/10/18 at 21:46; Status DC Info (CONTRAST GIVEN -- Rx MONITORING) 1 each PRN DAILY PRN MC SEE COMMENTS; Start 01/10/18 at 21:30; Stop 01/12/18 at 21:29 Ceftriaxone Sodium 1 gm/ Dextrose 50 ml @ 100 mls/hr Q24H IV ; Start 01/11/18 at 00:00; Status UNV Ceftriaxone Sodium 50 ml @ 100 mls/hr 1X ONCE IV Last administered on at 00:43; Start 01/11/18 at 00:00; Stop 01/11/18 at 00:29; Status DC Ceftriaxone Sodium (Rocephin) 1 gm Q24H IVP Last administered on 01/11/18at 21: 00; Start 01/11/18 at 21:00 Morphine Sulfate (Morphine Sulfate) 4 mg 1X ONCE IV Last administered on 01/11at 00:43; Start 01/11/18 at 00:45; Stop 01/11/18 at 00:46; Status DC Morphine Sulfate (Morphine Sulfate) 4 mg PRN Q2HR PRN IV PAIN Last administered on 01/11/18at 09:44; Start 01/11/18 at 00:45; Stop 01/12/18 at 00 :44; Status DC Influenza Virus Vaccine (Afluria Trivalent [id number] Syringe) 0.5 ml ONCE ONCE VAX IM Last administered on 01/11/18at 09:00; Start 01/11/18 at 09:00; Stop 01/11/18 at 09:01; Status DC Info (FLU VACCINE SCREEN per RX) 1 each PRN 1X PRN MC SEE COMMENTS; Start at 02:45; Status Cancel Sodium Chloride 1,000 ml @ 100 mls/hr Q10H IV Last administered on 01/11/18at 07:26; Start 01/11/18 at 07:26; Stop 01/11/18 at 17:25; Status DC Sodium Chloride 1,000 ml @ 100 mls/hr Q10H IV Last administered on 01/12/18at 05:08; Start 01/11/18 at 07:26; Stop 01/12/18 at 13:19; Status DC Acetaminophen/ Hydrocodone Bitart (Lortab 5/325) 1 tab PRN Q4HRS PRN PO MODERATE PAIN Last administered on 01/12/18at 13:35; Start 01/11/18 at 07:30 Acetaminophen/ Hydrocodone Bitart (Lortab 5/325) 2 tab PRN Q4HRS PRN PO SEVERE PAIN; Start 01/11/18 at 07:30 Enoxaparin Sodium (Lovenox 40mg Syringe) 40 mg Q24H SQ ; Start 01/11/18 at 09: 00; Stop 01/11/18 at 09:00; Status DC Apixaban (Eliquis) 5 mg BID PO Last administered on 01/12/18at 08:08; Start at 09:00 Aspirin (Ecotrin) 81 mg DAILY08 PO Last administered on 01/12/18at 08:08; Start 01/11/18 at 08:00 Furosemide (Lasix) 20 mg QODAY PO Last administered on 01/11/18at 08:55; Start 01/11/18 at 09:00 Lisinopril (Prinivil) 10 mg DAILY PO Last administered on 01/12/18at 08:10; Start 01/11/18 at 09:00 Metoprolol Tartrate (Lopressor) 50 mg BID PO Last administered on 01/12/18at 08 :09; Start 01/11/18 at 09:00 Tramadol HCl (Ultram) 50 mg PRN Q6HRS PRN PO MILD PAIN; Start 01/11/18 at 07: 30 Calcium/Vitamin D (Oscal D 500mg/ 200uts) 1 tab DAILY08 PO Last administered on 01/12/18at 08:07; Start 01/11/18 at 08:00 Levothyroxine Sodium (Synthroid) 50 mcg DAILY06 PO Last administered on at 05:07; Start 01/11/18 at 07:45 Multivitamins (Thera M Plus) 1 tab DAILY PO Last administered on 01/12/18at 08: 08; Start 01/11/18 at 09:00 Fish Oil (Fish Oil) 1,000 mg DAILY PO Last administered on 01/12/18at 08:10; Start 01/11/18 at 09:00 Pantoprazole Sodium (Protonix) 40 mg DAILYAC PO Last administered on at 08:09; Start 01/11/18 at 07:45 Non-Formulary Medication ( #57/ Iron/Fa/Dss/Dha (Extra-Virt Plus Dha Softgel)) 1 each DAILY07 PO ; Start 01/12/18 at 07:00; Status UNV Triamterene/HCTZ (Maxzide 37.5/ 25mg) 1 tab DAILY PO Last administered on 01/12at 08:08; Start 01/11/18 at 09:00 Non-Formulary Medication (Umeclidinium Brm/Vilanterol Tr (Anoro Ellipta 62.5-25 Mcg Inh)) 1 each DAILY IH ; Start 01/11/18 at 09:00; Status UNV Albuterol Sulfate (Ventolin Neb Soln) 2.5 mg RTQID NEB Last administered on at 11:36; Start 01/11/18 at 08:00 Budesonide (Pulmicort) 0.5 mg RTBID NEB Last administered on 01/12/18at 07:42; Start 01/11/18 at 08:00 Lactobacillus Rhamnosus (Culturelle) 1 cap BID PO Last administered on at 08:09; Start 01/11/18 at 21:00 Methocarbamol (Robaxin) 500 mg TID PRN PRN PO MUSCLE SPASMS; Start 01/12/18 at 13:30 Active Scripts Active Reported Anoro Ellipta 62.5-25 Mcg Inh (Umeclidinium Brm/Vilanterol Tr) 1 Each Disk.w.dev 1 Each IH DAILY Furosemide 20 Mg Tablet 1 Tab PO QODAY Lisinopril 10 Mg Tablet 1 Tab PO DAILY Metoprolol Tartrate 50 Mg Tablet 50 Mg PO BID Eliquis (Apixaban) 5 Mg Tablet 5 Mg PO BID Omeprazole 20 Mg Capsule. 20 Mg PO DAILY07 Tramadol Hcl 50 Mg Tablet 50 Mg PO PRN Q6HRS Extra-Virt Plus Dha Softgel ( #57/Iron/Fa/Dss/Dha) 1 Each Capsule 1 Each PO DAILY07 Levothyroxine Sodium 50 Mcg Tablet 50 Mcg PO DAILY07 Fish Oil ([place]-3 Fatty Acids) 500 Mg Capsule 500 Mg PO DAILY07 Aspir 81 (Aspirin) 81 Mg Tablet. 81 Mg PO DAILY07 Multi Vitamin Daily (Multivitamin) 1 Each Tablet 1 Each PO DAILY07 Calcium 500 + D Tablet (Calcium Carbonate/Vitamin D3) 1 Each Tablet 1 Each PO DAILY07 Triamterene-Hctz 37.5-25 Mg Cp (Triamterene/Hydrochlorothiazid) 1 Each Capsule 1 Each PO DAILY07 Vitals/I & O Vital Sign - Last 24 Hours 01/11/18 01/11/18 01/11/18 01/11/18 15:00 15:59 19:00 19:36 Temp 98.6 98.5 98.6 98.5 Pulse 63 94 Resp 16 16 B/P (MAP) 114/62 (79) 119/63 (81) Pulse Ox 97 95 95 O2 Delivery Room Air Room Air Room Air Room Air 01/11/18 01/11/18 01/11/18 01/11/18 20:02 21:00 21:09 23:00 Temp 98.5 98.5 Pulse 94 105 Resp 16 B/P (MAP) 119/63 129/77 (94) Pulse Ox 95 96 O2 Delivery Room Air Room Air Room Air 01/12/18 01/12/18 01/12/18 01/12/18 03:00 05:07 07:00 07:42 Temp 98.5 97.5 98.5 97.5 Pulse 58 96 Resp 16 18 B/P (MAP) 151/69 (96) 129/72 (91) Pulse Ox 95 95 97 96 O2 Delivery Room Air Room Air Room Air Room Air 01/12/18 01/12/18 01/12/18 01/12/18 08:00 08:09 08:10 09:05 Pulse 58 58 B/P (MAP) 151/69 151/69 Pulse Ox 96 O2 Delivery Room Air Room Air 01/12/18 01/12/18 01/12/18 01/12/18 10:11 11:00 11:36 13:35 Temp 98.1 98.1 Pulse 90 Resp 18 B/P (MAP) 108/61 (77) Pulse Ox 96 95 95 O2 Delivery Room Air Room Air Room Air Room Air Intake and Output 01/11/18 01/11/18 01/12/18 15:00 23:00 07:00 Intake Total 300 ml 400 ml 840 ml Balance 300 ml 400 ml 840 ml ELIZABETH MAZARIEGOS MD Jan 12, 2018 14:24
[2018-01-12 15:00] VITALS: BP 124/67
[2018-01-12 19:00] VITALS: BP 131/72
[2018-01-12] MEDS: cefTRIAXone IV Push 1 GM VIAL. IVP SCH (20:26)
[2018-01-12 23:00] VITALS: BP 133/68
[2018-01-13 03:00] VITALS: BP 115/43
[2018-01-13] MEDS: LEVOTHYROXINE 50 MCG TABLET PO SCH (05:46)
[2018-01-13 07:00] VITALS: BP 128/62
[2018-01-13] MEDS: ALBUTEROL SULFATE 2.5 MG/3 ML NEBU. NEB SCH ×4 (07:31→19:27)
[2018-01-13] MEDS: BUDESONIDE 0.5 MG/2 ML NEBU. NEB SCH ×2 (07:31→19:27)
[2018-01-13] MEDS: METOPROLOL TART IMMED RELEASE 50 MG TABLET. PO SCH ×2 (09:31→20:24)
[2018-01-13] MEDS: TRIAMTERENE/HCTZ 37.5/25MG TABLET. PO SCH (09:31)
[2018-01-13] MEDS: OMEGA-3 FATTY ACIDS/FISH OIL 1,000 MG CAPSULE. PO SCH (09:31)
[2018-01-13] MEDS: CALCIUM CARB/VIT D3 500/200 TABLET. PO SCH (09:31)
[2018-01-13] MEDS: LACTOBACILLUS RHAMNOSUS GG 1 CAPSULE. PO SCH ×2 (09:32→20:23)
[2018-01-13] MEDS: APIXABAN 5 MG TABLET. PO SCH ×2 (09:32→20:24)
[2018-01-13] MEDS: ASPIRIN ENTERIC COATED 81 MG TABLET.DR. PO SCH (09:32)
[2018-01-13] MEDS: LISINOPRIL 10 MG TABLET PO SCH (09:32)
[2018-01-13] MEDS: MULTIVITAMIN with MINERAL TABLET. PO SCH (09:32)
[2018-01-13] MEDS: FUROSEMIDE 20 MG TABLET PO SCH (09:32)
[2018-01-13] MEDS: PANTOPRAZOLE 40 MG TABLET.DR. PO SCH (09:32)
[2018-01-13] MEDS: HYDROcodone/APAP 5/325MG 1 TAB TABLET PO PRN ×2 (09:33→16:16)
[2018-01-13] MEDS ORDERED: predniSONE 10 MG TABLET PO SCH (10:00)
--- NOTE | 2018-01-13 11:50 | CONS ---
DATE OF CONSULTATION: 01/13/2018 LOCATION: She is in room 526. ATTENDING PHYSICIAN: Dr. Garvey. REASON FOR CONSULTATION: The patient was seen at the request of Dr. Garvey for rehab evaluation. HISTORY OF PRESENT ILLNESS: This is a 77-year-old female with chronic neck and back pain, increased neck pain for the last 1 week with radiation to both upper extremities without any trouble with her bowel or bladder control. Also, she is having pain over mid and lower back. The patient was seen in the Emergency Room on 01/13/2018, was noted with elevated white cell count with evidence of pyelonephritis on physical exam and on urine specimen. The patient was admitted for further evaluation and treatment. The patient with known hypertension, hypothyroidism, gastroesophageal reflux disease, chronic obstructive pulmonary disease with asthma, degenerative disk disease of lumbar vertebrae with associated spinal stenosis, atrial fibrillation status post cardioversion, status post cataract removal and lens implant, cholecystectomy, breast biopsy, hysterectomy. Mother of complications of stomach ulcers. Father with kidney failure. She never smoked. She lives with her roommate, had stairs to get into the house, but no stairs to manage, from garage she had stairs down to the basement. The patient has been independent with her mobility and self-care skills prior to the present hospitalization. SHE IS KNOWN ALLERGIC TO ZINC OXIDE, TAPE, BANANA BOAT SUNBLOCK, POISON PETRA, OAK, SUMAC, OXAPROZIN, AND NATURAL RUBBER ADHESIVE AND LATEX. The patient had radiological studies, which revealed multilevel degenerative disk disease and degenerative joint disease of lumbar vertebrae with associated spondylolisthesis, mainly at L4-L5 and L5-S1 level, and CT scan of cervical vertebrae revealed multilevel degenerative changes, both degenerative disk disease and degenerative joint disease, large amount of pannus formation seen involving the dens with cystic changes and large heterogenous right thyroid lobe, probably from nodule. PHYSICAL EXAMINATION: Today, revealed an elderly female. She is alert, oriented to time, place, person and circumstance and follows commands appropriately. She had painful limited movements of her cervical, thoracic and lumbar spine without any significant paraspinal muscle spasm, tenderness to palpation over cervical paraspinal muscles extending over to thoracic and lumbar paraspinal muscles, over posterior shoulder girdle muscles and sacroiliac joint area. Straight leg raising test is negative bilaterally. She had 5/5 grade muscle strength in her upper and lower extremities. Deep tendon reflexes are 1-2+ and symmetrical with absent ankle jerks. She had crepitus on range of motion of both knee joints without any obvious knee joint effusion. She had pain free range of motion of both hip joints. She had positive Tinel sign over median nerve at the wrist and she had clinical evidence of degenerative joint disease involving left thumb carpometacarpal joint with deformity of left thumb and muscle atrophy involving left thenar eminence muscles. Overall, she had equal perception of touch and pinprick sensation bilaterally. She is independent with bed mobility and transfers and up walking using a roller walker. Her skin is intact at this time. ASSESSMENT: An elderly female with chronic neck and back pain from degenerative disk disease and degenerative joint disease of cervical and lumbar vertebrae with increased neck pain for the last 1 week with cervical radiculitis. No clinical evidence of cervical, thoracic or lumbar radiculopathy. She had degenerative joint disease of both knees and left thumb carpometacarpal joint without any significant discomfort, but some deformity of left thumb, clinical evidence of bilateral carpal tunnel syndrome and peripheral neuropathy. The patient with known hypertension, hypothyroidism, gastroesophageal reflux disease, chronic obstructive pulmonary disease with asthma, atrial fibrillation status post cardioversion, on Eliquis. RECOMMENDATIONS: To start her on prednisone as an anti-inflammatory medication and to ask Physical Therapy to try physical modalities and to obtain MRI scan of her cervical vertebrae. Hopefully, home with outpatient followup when medically stable in the next couple of days. Dr. Garvey, I appreciate asking me to participate in care of this interesting patient. I will be glad to follow her with you as needed for her rehabilitation. DANILO DICK MD DR: CHERI/gisele JOB#: [id number] / [id number]
[2018-01-13] MEDS ORDERED: CEPH-264 PO (13:56)
[2018-01-13] MEDS ORDERED: METH-37 PO (13:56)
[2018-01-13] MEDS ORDERED: PRED-220 PO (13:56)
--- NOTE | 2018-01-13 14:16 | RAD ---
MRI of the cervical spine without contrast 01/13/2018 CLINICAL HISTORY: Worsening neck pain which radiates down both arms for one week. TECHNIQUE: Unenhanced T1-weighted, T2-weighted and inversion recovery sagittal and gradient echo and T2-weighted axial images of the cervical spine were obtained. FINDINGS: Comparison is made to a CT scan of the cervical spine dated 01/10/2018. Mild lateral curvature of the cervical spine is seen convex to the right. There is straightening of the normal cervical lordosis. Degenerative signal changes are seen involving all of the disks of the cervical spine. Degenerative signal changes are seen within the marrow surrounding these discs. No area of abnormal signal intensity is seen involving the cervical spinal cord. At the C2-3 disc space there is a mild generalized disc bulge. Degenerative changes are seen involving the uncovertebral and facet joints, right greater than left. These findings do not result in significant central spinal canal or neural foraminal stenosis. At the C3-4 disc space there is a mild generalized disc bulge. Degenerative changes are seen involving the uncovertebral and facet joints, left greater than right. These findings efface the anterior and posterior CSF without resulting in significant central spinal canal stenosis. Mild left neural foraminal stenosis is seen. The right neural foramen is patent. At the C4-5 disc space there is a mild generalized disc bulge. Superimposed on this disc bulge is a focal central disc protrusion. This measures 2 mm in AP diameter. Degenerative changes are seen involving the uncovertebral and facet joints, left greater than right. These findings when combined do not result in significant central spinal canal stenosis. Mild to moderate left greater than right neural foraminal stenosis is seen. At the C5-6 disc space there is a mild to moderate generalized disc bulge. Degenerative changes are seen involving the facet joints bilaterally. Prominent osteophyte formation is seen projecting anteriorly from the posterior elements into the central spinal canal. These findings when combine result in moderate right greater than left central spinal canal stenosis with mild to moderate right greater than left cord impingement. Mild to moderate left greater than right neural foraminal stenosis is seen. At the C6-7 disc space there is a mild generalized disc bulge. Degenerative changes are seen involving the uncovertebral and facet joints, right greater than left. These findings when combined do not result in significant central spinal canal stenosis. Mild right neural foraminal stenosis is seen. The left neural foramen is patent. At the C7-T1 disc space there is a minimal generalized disc bulge. Degenerative changes are seen involving the facet joints bilaterally. These findings do not result in significant central spinal canal or neural foraminal stenosis. IMPRESSION: Degenerative changes are seen throughout the cervical spine. These findings result in moderate right greater than left central spinal canal stenosis with mild to moderate right greater than left cord impingement at C5-6. Multilevel neural foraminal stenosis of varying severity is seen as outlined above. Electronically signed by: Darci Combs MD (01/13/2018 2:12 PM) [facility]
[2018-01-13 15:00] VITALS: BP 120/58
--- NOTE | 2018-01-13 15:27 | DS ---
DATE OF DISCHARGE: 01/13/2018 ADMIT DIAGNOSIS: Pyelonephritis. SECONDARY DIAGNOSES: 1. C-spine spinal stenosis. 2. Leukocytosis. 3. Hyponatremia. 4. Osteoarthritis of neck. 5. Hypertension. 6. Hypothyroidism. 7. Chronic obstructive pulmonary disease/asthma. 8. History of atrial fibrillation, status post cardioversion. 9. Reflux esophagitis. HISTORY OF PRESENT ILLNESS AND HOSPITAL COURSE: This patient is a 77-year-old female who began having significant neck pain and unable to care for herself that she also had back pain and was seen in the Emergency Room and found to have elevated white count with evidence of UTI, pyelonephritis. She was admitted for IV fluids and IV antibiotics as well as PT and OT modalities and evaluation of neck pain. She improved within the first 48 hours clinically with improved leukocytosis and improved hyponatremia. Cultures are pending, but the patient was clinically improved. Therefore, plan to change to p.o. medications were made. The patient was tolerating p.o. well and PT and OT evaluated the patient and deemed the patient adequate to go home with outpatient therapy. She will follow up in the office in 1 week for continued care. DISCHARGE MEDICATIONS: She will be discharged on the following medications: Cephalexin 500 mg 2 tablets b.i.d. for 7 more days. Methocarbamol 500 mg t.i.d. p.r.n. Prednisone 10 mg 4 pills for 2 days, tapering by 10 mg every other day. Eliquis 5 mg b.i.d., aspirin 81 mg daily, calcium carbonate with vitamin D daily, Lasix 20 mg daily, levothyroxine 50 mcg daily, lisinopril 10 mg daily, metoprolol 50 mg b.i.d., multivitamin daily, omega-3 fatty acids of 500 mg daily, omeprazole 20 mg daily, vitamin daily, tramadol 50 mg q.6 hours p.r.n. Dyazide 37.5/25 one daily. Anoro Ellipta 1 puff daily. She will follow up in family practice clinic in 1 week to monitor medications and treatment and await culture results from urine culture done during hospitalization. ELIZABETH MAZARIEGOS MD DR: CONCEPCIÓN/gisele JOB#: [id number] / [id number]
[2018-01-13 19:00] VITALS: BP 119/67
[2018-01-13] MEDS: cefTRIAXone IV Push 1 GM VIAL. IVP SCH (20:20)
[2018-01-13 20:24] VITALS: BP 119/67
== END 2018-01-13 20:54 | disposition home or self-care (01) | DRG 872 ==
LOC: ER 18:22 → 5 NORTH 01-11
PROVIDERS: ADMIT Family Medicine; ATTEND Family Medicine
DX: A41.9 Sepsis, unspecified organism (principal); N12 Tubulo-interstitial nephritis, not specified as acute or chronic; E87.1 Hypo-osmolality and hyponatremia; M48.02 Spinal stenosis, cervical region; M47.812 Spondylosis without myelopathy or radiculopathy, cervical region; E03.9 Hypothyroidism, unspecified; E04.1 Nontoxic single thyroid nodule; E78.00 Pure hypercholesterolemia, unspecified; E86.0 Dehydration; G56.03 Carpal tunnel syndrome, bilateral upper limbs; G62.9 Polyneuropathy, unspecified; G89.29 Other chronic pain; I10 Essential (primary) hypertension; I48.91 Unspecified atrial fibrillation; K21.0 Gastro-esophageal reflux disease with esophagitis; J44.9 Chronic obstructive pulmonary disease, unspecified; L23.7 Allergic contact dermatitis due to plants, except food; Z96.1 Presence of intraocular lens; M17.0 Bilateral primary osteoarthritis of knee; E66.9 Obesity, unspecified; M43.10 Spondylolisthesis, site unspecified; M47.816 Spondylosis without myelopathy or radiculopathy, lumbar region; M48.00 Spinal stenosis, site unspecified; M50.30 Other cervical disc degeneration, unspecified cervical region; M51.36 Other intervertebral disc degeneration, lumbar region; M51.37 Other intervertebral disc degeneration, lumbosacral region; Z79.01 Long term (current) use of anticoagulants; Z79.82 Long term (current) use of aspirin; Z90.710 Acquired absence of both cervix and uterus; Z91.040 Latex allergy status; Z79.899 Other long term (current) drug therapy; Z68.33 Body mass index [BMI] 33.0-33.9, adult; Z90.49 Acquired absence of other specified parts of digestive tract; Z87.81 Personal history of (healed) traumatic fracture; Z88.6 Allergy status to analgesic agent; Z88.1 Allergy status to other antibiotic agents; Z88.8 Allergy status to other drugs, medicaments and biological substances; Z91.048 Other nonmedicinal substance allergy status
CPT/HCPCS: 36415; 70496; 70498; 71045; 72125; 72141; 74176; 80048; 81001; 83605; 84145; 84484; 85007; 85025; 85610; 87040; 87086; 87186; 90471; 90756; 93005; 94640; 94760; J0690; J0696; J2270; J3010; J7030; J7512; J7613; J7626; Q9967; 97110; 97116; 97530; 97535; Q2035

== ENCOUNTER → 2018-08-12 | Outpatient (CLI) | payer MEDICARE, OTHER ==
[~2018-08-12] MED LIST changes: +ALBU2.5V8 IH; +CEPH-264 PO; +FURO20TA3 PO; +LISI10TA2 PO; +METH-37 PO; +METO50TA6 PO; +OMEP20CA10 PO; -OMEP20CA9 PO; +PRED-220 PO; -PROAIR HFA8.5 GM IH; +REGADENOSON 0.4 MG/5 ML DISP.SYRIN. IV ONE; +UMEC1DIS IH
--- NOTE | 2018-08-12 11:32 | CARD ---
MR#: [id number] Date of Study: 08/12/2018 Ordering Physician: ABRAHAM HALL, Referring Physician: ABRAHAM HALL Tech: Estephanie Mercado RDCS APPROVED REPORT EXAM: Two-dimensional and M-mode echocardiogram with Doppler and color Doppler. Other Information Quality : Good Rhythm : Atrial Fibrillation INDICATION Atrial Fibrillation 2D DIMENSIONS Left Atrium(2D)4.0 (1.6-4.0cm)IVSd0.7 (0.7-1.1cm) Aortic Root(2D)3.0 (2.0-3.7cm)LVDd4.4 (3.9-5.9cm) LVOT Diameter1.7 (1.8-2.4cm)PWd0.8 (0.7-1.1cm) LVDs3.9 (2.5-4.0cm)FS (%) 27.0 % SV23.3 mlLVEF(%)55.0 (>50%) Aortic Valve AoV Peak Reese.130.7cm/sAoV VTI25.4cm AO Peak GR.6.8mmHgLVOT Peak Reese.112.5cm/s AO Mean GR.4mmHgAVA (VMAX)2.04cm2 ESTRELLA (VTI)2.85mo6QE P 1/2 Uooh237cn Tricuspid Valve TR P. Eildpued843xg/sRAP WZGRLHEZ2ltMq TR Peak Gr.06tbJwEJMW12aoAm LEFT VENTRICLE The left ventricle is normal size. There is normal left ventricular wall thickness. The left ventricu lar systolic function is normal and the ejection fraction is within normal range. The Ejection Fracti on is 55-60%. There is normal LV segmental wall motion. RIGHT VENTRICLE The right ventricle is normal size. The right ventricular systolic function is normal. ATRIA The left atrium is mildly dilated. The right atrium is mildly dilated. The interatrial septum is inta ct with no evidence for an atrial septal defect or patent foramen ovale as noted on 2-D or Doppler im aging. AORTIC VALVE The aortic valve is calcified but opens well. Doppler and Color Flow revealed trace to mild aortic re gurgitation. There is no significant aortic valvular stenosis. MITRAL VALVE The mitral valve is calcified but opens well. There is no evidence of mitral valve prolapse. There is no mitral valve stenosis. Doppler and Color-flow revealed trace mitral regurgitation. TRICUSPID VALVE The tricuspid valve is normal in structure and function. Doppler and Color Flow revealed mild tricusp id regurgitation. The PA pressure was estimated at 46 mmHg. There is no tricuspid valve stenosis. PULMONIC VALVE The pulmonic valve is not well visualized. Doppler and Color Flow revealed trace pulmonic valvular re gurgitation. There is no pulmonic valvular stenosis. GREAT VESSELS The aortic root is normal in size. The ascending aorta is not well seen. The IVC is normal in size an d collapses <50% with inspiration. PERICARDIAL EFFUSION There is no evidence of significant pericardial effusion. Critical Notification Critical Value: No <Conclusion> The left ventricle is normal size. The left ventricular systolic function is normal and the ejection fraction is within normal range. The Ejection Fraction is 55-60%. There is no significant aortic valvular stenosis. Doppler and Color Flow revealed trace to mild aortic regurgitation. Doppler and Color-flow revealed trace mitral regurgitation. Doppler and Color Flow revealed mild tricuspid regurgitation. The PA pressure was estimated at 46 mmHg. Signed by : Forest Connolly MD Electronically Approved : 08/12/2018 11:31:37
--- NOTE | 2018-08-12 11:38 | RAD ---
MR#: [id number] Date of Study: 08/12/2018 Ordering Physician: ABRAHAM HALL Referring Physician: BARBARA NATH Tech: RT Cameron (Marilyn) (N) APPROVED REPORT Test Type: Pharmacological Stress Nurse/Tech: Giuseppe MCKEON Test Indications: Afib Cardiac History: HTN, See EMR Medications: See EMR Medical History: Asthma, Seizure, See EMR Resting ECG: Afib Resting Heart Rate: 72 bpm Resting Blood Pressure: 128/61mmHg Pretest Chest Pain: No chest pain Nurse/Tech Notes Lungs clear in upper lobes, crackles in bases. Heart tones irregular. Consent: The procedure was explained to the patient in lay terms. Informed consent was witnessed. Catarino eout was entered into [employer]. History and Stress Test performed by RT Gideon (R) (N) Pharm. Details Pharmacologic stress testing was performed using 0.4mg per 5ml of regadenoson given intravenously ove r 7-10 seconds. Stress Symptoms No chest pain or symptoms. POST EXERCISE Reason for Termination: Infusion complete Max HR: 90 bpm Max Blood Pressure: 121/52mmHg Blood Pressure response to exercise: Normal blood pressure response during stress. Chest Pain: No. Arrhythmia: No. ST Change: No. INTERPRETATION Stress EKG Conclusion: The resting EKG shows atrial fibrillation with nonspecific ST-T wave changes. The stress EKG shows no significant changes from baseline. No EKG evidence of stress-induced ischemia. Imaging Protocol IMAGE PROTOCOL: Rest Tc-99m/stress Tc-99m 1 day Rest: Stress: Viability: Radiopharm.Tc99m IfxgeyvsgTi11p Sestamibi Ayhp60lRi 33mCi Duration 15min. 13min. Img Date 08/12/2018 08/12/2018 Inj-Img Hhkn92pfo. 60min. Rest Admin Site:IV - Right AntecubitalAdministrator:RT Cameron (R)(N) Stress Admin Site: IV - Right AntecubitalAdministrator: RT Schuyler Meneses)(N) STRESS DATA End Diast. Vol.85.0mlLVEDV index BSA43.0ml End Syst. Vol.17.0mlLVESV index BSA8.0ml Myocardial Beef425.0gEject. Siyraskc07.0% Stress Scores Regional WT1.00Summed WT12.00 Regional WM0.00Summed WM0.00 LV Perfusion The stress scans show no significant defects. The rest scans showed no significant defects. Nuclear imaging shows no reversible ischemia or infarct. Wall Motion Normal left ventricular systolic function with ejection fraction of greater than 70%. LV Perf. Quant 17 Seg. SSS0.00 17 Seg. SRS1.00 17 Seg. SDS0.00 Stress Defect Extent (% LAD)0.00Rest Defect Extent (% LAD)6.30Rev. Defect Extent (% LAD)0.00 Stress Defect Extent (% LCX) 0.00Rest Defect Extent (% LCX)0.00Rev. Defect Extent (% LCX)0.00 Stress Defect Extent (% RCA)0.00Rest Defect Extent (% RCA)0.00Rev. Defect Extent (% RCA)0.00 Stress Defect Extent (% JOSIAS)0.00Rest Defect Extent (% JOSIAS)2.20Rev. Defect Extent (% JOSIAS)0.00 Conclusion 1. No EKG evidence of stress-induced ischemia. 2. Nuclear imaging shows no reversible ischemia or infarct. 3. Normal left ventricular systolic function with an ejection fraction of greater than 70%. 4. Moderately low risk Lexiscan nuclear stress test. Signed by : Forest Connolly MD Electronically Approved : 08/12/2018 11:37:48
== END | disposition home or self-care (01) ==
LOC: NM 08:03
PROVIDERS: ATTEND Internal Medicine Cardiovascular Disease
DX: I08.3 Combined rheumatic disorders of mitral, aortic and tricuspid valves (principal); I48.91 Unspecified atrial fibrillation; I10 Essential (primary) hypertension; J45.909 Unspecified asthma, uncomplicated
CPT/HCPCS: 78452; 93017; 93306; A9500; J2785

== ENCOUNTER 2019-11-07 17:36 | Inpatient (IN) | payer MEDICARE, OTHER ==
[~2019-11-07] VITALS: Ht 165.1 cm; Wt 85.0 kg
[~2019-11-07 17:36] MED LIST changes: -OMEP20CA10 PO; +OMEP20CA16 PO; -REGADENOSON 0.4 MG/5 ML DISP.SYRIN. IV ONE
[2019-11-07 18:01] LABS: BASO % 0 % (0-3); EOS # 0.1 x10^3/uL (0.0-0.7); EOS % 0 % (0-3); HEMATOCRIT 48.1 % (36.0-47.0); HEMOGLOBIN 16.4 g/dL (12.0-15.5); LYMPH # 0.4 x10^3/uL (1.0-4.8); LYMPH % 2 % (24-48); MEAN CORPUSCULAR HEMOGLOBIN 33 pg (25-35); MEAN CORPUSCULAR HGB CONC 34 g/dL (31-37); MEAN CORPUSCULAR VOLUME 97 fL (79-100); MONO # 1.3 x10^3/uL (0.0-1.1); MONO % 6 % (0-9); NEUT # 20.2 x10^3/uL (1.8-7.7); NEUT % 92 % (31-73); PLATELET COUNT 252 x10^3/uL (140-400); RED BLOOD COUNT 4.94 x10^6/uL (3.50-5.40); RED CELL DISTRIBUTION WIDTH 13.3 % (11.5-14.5)
[2019-11-07 18:07] LABS: CALCIUM 9.8 mg/dL (8.5-10.1); CREATININE 1.4 mg/dL (0.6-1.0); GFR 36.2; POTASSIUM 3.6 mmol/L (3.5-5.1)
[2019-11-07 18:13] LABS: ALBUMIN 3.1 g/dL (3.4-5.0); ALBUMIN/GLOBULIN RATIO 0.9 (1.0-1.7); MAGNESIUM 1.5 mg/dL (1.8-2.4); TOTAL PROTEIN 6.5 g/dL (6.4-8.2)
[2019-11-07] MEDS ORDERED: IV NORMAL SALINE 1000ML BAG 1,000 ML IV ONE (18:15)
[2019-11-07] MEDS ORDERED: fentaNYL PF VIAL 100 MCG/2 ML VIAL IV ONE ×2 (18:15→19:30)
[2019-11-07 18:19] LABS: BILIRUBIN,URINE NEGATIVE (NEG); CLARITY,URINE CLOUDY; COLOR,URINE AMBER; NITRITE,URINE NEGATIVE (NEG); PH,URINE 6.5 (<5.0-8.0); PROTEIN,URINE 100 mg/dL (NEG-TRACE)
[2019-11-07 18:28] LABS: HYALINE CASTS, URINE MODERATE /HPF; SQUAMOUS EPITHELIAL CELL,UR MOD /LPF
[2019-11-07 18:29] LABS: AMORPHOUS SEDIMENT,UR PRESENT /HPF; BACTERIA,URINE MANY /HPF (0-FEW); GRANULAR CASTS,URINE FEW /HPF; WBC,URINE 20-40 /HPF (0-4)
[2019-11-07 18:44] LABS: % BANDS 12 % (0-9); % EOS 2 % (0-5); % MONOS 5 % (0-10); % SEGS 81 % (35-66)
[2019-11-07] MEDS ORDERED: cefTRIAXone IV Push 1 GM VIAL. IVP ONE (18:45)
[2019-11-07 18:46] LABS: PLT ESTIMATE ADEQUATE (ADEQUATE); TOXIC VACUOLATION SLIGHT
--- NOTE | 2019-11-07 19:05 | PHYS DOC ---
Past Medical History Past Medical History: A-Fib, COPD, GERD, High Cholesterol, Hypertension, Hypothyroid, Seizure, Other Additional Past Medical Histor: OBESITY,BACK PAIN,GALLSTONES,EPILEPSY Past Surgical History: Cholecystectomy, Hysterectomy Additional Past Surgical Histo: CATARACT IMPLANT BILAT,BREAST BX,ROOT CANNALS,OSTOTOMY Smoking Status: Never Smoker Alcohol Use: Rarely Drug Use: None General Adult EDM: Chief Complaint: NAUSEA/VOMITING/DIARRHA HPI: HPI: Patient is a 79 year old female brought to the emergency department via EMS with complaints of nausea, vomiting, and diarrhea that began at approximately 1400 today. Patient states that she has had at least 10 episodes of vomiting and 10 episodes of diarrhea today. She denies any blood in her stools. She complains of left-sided and lower abdominal pain, feeling lightheaded, and weak. Patient denies any fever, cough, shortness of breath, chest pain, palpitations, swelling of extremities, or dysuria. Prior to arrival EMS reports that they gave patient 300 mL of normal saline and 4 mg of IV Zofran. The patient currently denies any nausea. She denies any known exposure to anyone with COVID-19. Patient states she lives at home by herself her son comes to visit her. She currently rates her pain as 4 out of 10 on the pain scale and describes it as aching. She denies any radiation of the pain. She denies any alleviating or exacerbating factors the pain is intermittent. Review of Systems: Review of Systems: Constitutional: Denies fever or chills. [] HENT: Denies nasal congestion or sore throat. [] Respiratory: Denies cough or shortness of breath. [] Cardiovascular: Denies chest pain or edema. [] GI: See HPI : Denies dysuria. [] Musculoskeletal: Denies back pain or joint pain. [] Integument: Denies rash. [] Neurologic: Denies headache Psychiatric: Denies depression or anxiety. [] Heart Score: Risk Factors: Risk Factors: DM, Current or recent (<one month) smoker, HTN, HLP, family history of CAD, obesity. Risk Scores: Score 0 - 3: 2.5% MACE over next 6 weeks - Discharge Home Score 4 - 6: 20.3% MACE over next 6 weeks - Admit for Clinical Observation Score 7 - 10: 72.7% MACE over next 6 weeks - Early Invasive Strategies Current Medications: Current Medications Medications (Trade) Dose Ordered Sig/Sonny Start Time Stop Time Status Last Admin Dose Admin Ceftriaxone Sodium (Rocephin) 1 gm 1X ONCE 11/07/19 18:45 11/07/19 18:46 UNV Fentanyl Citrate (Fentanyl 2ml Vial) 25 mcg 1X ONCE 11/07/19 18:15 11/07/19 18:19 DC 11/07/19 18:27 25 MCG Sodium Chloride 1,000 ml @ 1,000 mls/hr 1X ONCE 11/07/19 18:15 11/07/19 19:14 11/07/19 18:27 1,000 MLS/HR Allergies: Allergies: Allergies Coded Allergies Type Severity Reaction Last Updated Verified poison gary extract Allergy Severe Anaphylaxis 01/11/18 Yes Latex, Natural Rubber Allergy Intermediate DOES NOT KNOW 11/05/14 Yes adhesive Allergy Intermediate Hives 11/05/14 Yes oxaprozin Allergy Intermediate Hives 11/05/14 Yes zinc oxide Allergy Intermediate Hives 11/04/14 Yes Physical Exam: PE: Constitutional: Well developed, well nourished, no acute distress, non-toxic appearance, obese. [] HENT: Normocephalic, atraumatic, bilateral external ears normal, nose normal. [] Eyes: PERRLA, EOMI, conjunctiva normal, no discharge. [] Neck: Normal range of motion, no stridor. [] Cardiovascular:Heart rate regular rhythm Lungs & Thorax: Respirations even and unlabored, no retractions, no respiratory distress Abdomen: soft; LUQ, LLQ, and suprapubic tenderness to palpation; no rebound tenderness, no guarding Skin: Warm, dry, no erythema, no rash. [] Extremities: No cyanosis, ROM intact, no edema. [] Neurologic: Alert and oriented X 3, no focal deficits noted. [] Psychologic: Affect normal, judgement normal, mood normal. [] Current Patient Data: Labs: Laboratory Tests Test 11/07/19 17:45 11/07/19 18:10 White Blood Count 22.0 x10^3/uL (4.0-11.0) H Red Blood Count 4.94 x10^6/uL (3.50-5.40) Hemoglobin 16.4 g/dL (12.0-15.5) H Hematocrit 48.1 % (36.0-47.0) H Mean Corpuscular Volume 97 fL (79-100) Mean Corpuscular Hemoglobin 33 pg (25-35) Mean Corpuscular Hemoglobin Concent 34 g/dL (31-37) Red Cell Distribution Width 13.3 % (11.5-14.5) Platelet Count 252 x10^3/uL (140-400) Neutrophils (%) (Auto) 92 % (31-73) H Lymphocytes (%) (Auto) 2 % (24-48) L Monocytes (%) (Auto) 6 % (0-9) Eosinophils (%) (Auto) 0 % (0-3) Basophils (%) (Auto) 0 % (0-3) Neutrophils # (Auto) 20.2 x10^3/uL (1.8-7.7) H Lymphocytes # (Auto) 0.4 x10^3/uL (1.0-4.8) L Monocytes # (Auto) 1.3 x10^3/uL (0.0-1.1) H Eosinophils # (Auto) 0.1 x10^3/uL (0.0-0.7) Basophils # (Auto) 0.0 x10^3/uL (0.0-0.2) Segmented Neutrophils % 81 % (35-66) H Band Neutrophils % 12 % (0-9) H Monocytes % 5 % (0-10) Eosinophils % 2 % (0-5) Toxic Vacuolation Slight Platelet Estimate Adequate (ADEQUATE) Sodium Level 140 mmol/L (136-145) Potassium Level 3.6 mmol/L (3.5-5.1) Chloride Level 103 mmol/L (98-107) Carbon Dioxide Level 31 mmol/L (21-32) Anion Gap 6 (6-14) Blood Urea Nitrogen 20 mg/dL (7-20) Creatinine 1.4 mg/dL (0.6-1.0) H Estimated GFR (Cockcroft-Gault) 36.2 BUN/Creatinine Ratio 14 (6-20) Glucose Level 114 mg/dL (70-99) H Calcium Level 9.8 mg/dL (8.5-10.1) Magnesium Level 1.5 mg/dL (1.8-2.4) L Total Bilirubin 1.0 mg/dL (0.2-1.0) Aspartate Amino Transferase (AST) 28 U/L (15-37) Alanine Aminotransferase (ALT) 23 U/L (14-59) Alkaline Phosphatase 183 U/L (46-116) H Total Protein 6.5 g/dL (6.4-8.2) Albumin 3.1 g/dL (3.4-5.0) L Albumin/Globulin Ratio 0.9 (1.0-1.7) L Lipase 282 U/L (73-393) Urine Collection Type Unknown Urine Color Martina Urine Clarity Cloudy Urine pH 6.5 (<5.0-8.0) Urine Specific [place] 1.010 (1.000-1.030) Urine Protein 100 mg/dL (NEG-TRACE) Urine Glucose (UA) Negative mg/dL (NEG) Urine Ketones (Stick) Negative mg/dL (NEG) Urine Blood Negative (NEG) Urine Nitrite Negative (NEG) Urine Bilirubin Negative (NEG) Urine Urobilinogen Dipstick 1.0 mg/dL (0.2 mg/dL) Urine Leukocyte Esterase Large (NEG) Urine RBC 3-5 /HPF (0-2) Urine WBC 20-40 /HPF (0-4) Urine Squamous Epithelial Cells Mod /LPF Urine Transitional Epithelial Cells Few /LPF Urine Amorphous Sediment Present /HPF Urine Bacteria Many /HPF (0-FEW) Urine Hyaline Casts Moderate /HPF Urine Granular Casts Few /HPF Laboratory Tests 11/07/19 17:45 Laboratory Tests 11/07/19 17:45 Vital Signs: Vital Signs Date Time Temp Pulse Resp B/P (MAP) Pulse Ox O2 Delivery O2 Flow Rate FiO2 11/07/19 17:36 98.4 91 20 134/78 (96) 94 Room Air 98.4 EKG: EK-A. fib rate of 85, no STEMI, read by Dr. Martinez [] Radiology/Procedures: Radiology/Procedures: PROCEDURE: CT ABDOMEN PELVIS WO CONTRAST CT ABDOMEN PELVIS WO CONTRAST INDICATION: Reason: left sided abdominal pain, diarrhea / Spl. Instructions: / History: EXAM: Noncontrast CT of the abdomen and pelvis. Coronal and sagittal reformatted images were performed. PQRS compliance statement: One or more of the following individualized dose reduction techniques were utilized for this examination: 1. Automated exposure control 2. Adjustment of the mA and/or kV according to patient size 3. Use of iterative reconstruction technique COMPARISON: 01/11/2018 FINDINGS: No free air, free fluid, or fluid collection. Lower chest: Diffuse mosaic attenuation of the lung parenchyma. Multiple noncalcified bilateral pulmonary nodules which appear stable from exam of 2018 ABDOMEN: Liver: The noncontrast liver is homogeneous in attenuation. Gallbladder and biliary: Cholecystectomy. Normal caliber bile ducts. Spleen: Normal spleen. Pancreas: The noncontrast pancreas is homogeneous in attenuation without peripancreatic inflammatory changes. Adrenal glands: Normal adrenal glands. Kidneys and ureters: No opaque urinary calculi. Normal kidneys and ureters. GI tract: The stomach is decompressed and poorly evaluated. Normal caliber small bowel. Wall thickening of the descending colon with subtle pericolic haziness. Normal appendix. Vascular structures: Normal caliber abdominal aorta. Mild aortoiliac atherosclerotic disease. Lymph nodes: No lymphadenopathy in the abdomen or pelvis. PELVIS: Genitourinary system: Normal bladder. SKELETAL STRUCTURES AND SOFT TISSUES: Degenerative changes of the spine. Grade 1 anterolisthesis at L4-5 due to facet arthropathy. IMPRESSION: 1. Wall thickening of the descending colon could be due to underdistention, however there is subtle pericolic haziness which might represent inflammation as can be seen with colitis. 2. Diffuse mosaic attenuation of the lung parenchyma, possibly due to small airways disease or pulmonary hypertension. Multiple small bilateral noncalcified pulmonary nodules appear stable from 2018 and may represent noncalcified pulmonary granulomas. Diffuse idiopathic pulmonary neuroendocrine cell hyperplasia (DIPNECH) might also be considered, which can be seen as multiple noncalcified pulmonary nodules combined with mosaic lung attenuation. Electronically signed by: Alex Bhandari MD (11/07/2019 7:47 PM) [facility] [] Course & Med Decision Making: Course & Med Decision Making Pertinent Labs and Imaging studies reviewed. (See chart for details) 1956-spoke with Dr. Huitron who is the admitting physician, and care was assumed following discussion of patient. Will admit patient for colitis, UTI, nausea, vomiting, and diarrhea. I advised Dr. Huitron that the patient had been given 1 g of Rocephin in the emergency department. I will order stool cultures per his request. Patient's vital signs stable. Patient remains afebrile, appears nontoxic, respirations even and unlabored. Patient will be admitted to the medical/ surgical floor. Patient's case and plan of care also discussed with Dr. Martinez [] Kathy Disclaimer: Kathy Disclaimer: This electronic medical record was generated, in whole or in part, using a voice recognition dictation system. Departure Departure Impression: Primary Impression: Colitis Additional Impressions: UTI (urinary tract infection) Qualified Codes: N39.0 - Urinary tract infection, site not specified Nausea vomiting and diarrhea Admitting Physician: ZAIDA ([facility]) Condition: STABLE Referrals: ELIZABETH MAZARIEGOS MD (PCP) Justicifation of Admission Dx: Justifications for Admission: Justification of Admission Dx: Yes Sepsis: Infection NITIN LÓPEZ ORNAMENT STITCHER Nov 07, 2019 19:05
--- NOTE | 2019-11-07 19:51 | RAD ---
CT ABDOMEN PELVIS WO CONTRAST INDICATION: Reason: left sided abdominal pain, diarrhea / Spl. Instructions: / History: EXAM: Noncontrast CT of the abdomen and pelvis. Coronal and sagittal reformatted images were performed. PQRS compliance statement: One or more of the following individualized dose reduction techniques were utilized for this examination: 1. Automated exposure control 2. Adjustment of the mA and/or kV according to patient size 3. Use of iterative reconstruction technique COMPARISON: 01/11/2018 FINDINGS: No free air, free fluid, or fluid collection. Lower chest: Diffuse mosaic attenuation of the lung parenchyma. Multiple noncalcified bilateral pulmonary nodules which appear stable from exam of 2018 ABDOMEN: Liver: The noncontrast liver is homogeneous in attenuation. Gallbladder and biliary: Cholecystectomy. Normal caliber bile ducts. Spleen: Normal spleen. Pancreas: The noncontrast pancreas is homogeneous in attenuation without peripancreatic inflammatory changes. Adrenal glands: Normal adrenal glands. Kidneys and ureters: No opaque urinary calculi. Normal kidneys and ureters. GI tract: The stomach is decompressed and poorly evaluated. Normal caliber small bowel. Wall thickening of the descending colon with subtle pericolic haziness. Normal appendix. Vascular structures: Normal caliber abdominal aorta. Mild aortoiliac atherosclerotic disease. Lymph nodes: No lymphadenopathy in the abdomen or pelvis. PELVIS: Genitourinary system: Normal bladder. SKELETAL STRUCTURES AND SOFT TISSUES: Degenerative changes of the spine. Grade 1 anterolisthesis at L4-5 due to facet arthropathy. IMPRESSION: 1. Wall thickening of the descending colon could be due to underdistention, however there is subtle pericolic haziness which might represent inflammation as can be seen with colitis. 2. Diffuse mosaic attenuation of the lung parenchyma, possibly due to small airways disease or pulmonary hypertension. Multiple small bilateral noncalcified pulmonary nodules appear stable from 2018 and may represent noncalcified pulmonary granulomas. Diffuse idiopathic pulmonary neuroendocrine cell hyperplasia (DIPNECH) might also be considered, which can be seen as multiple noncalcified pulmonary nodules combined with mosaic lung attenuation. Electronically signed by: Alex Bhandari MD (11/07/2019 7:47 PM) [facility]
[2019-11-07] MEDS ORDERED: ENOXAPARIN 40 MG/0.4 ML SYRINGE. SQ SCH (20:30)
[2019-11-07] MEDS ORDERED: ONDANSETRON PF 4 MG/2 ML VIAL. IV PRN (20:30)
[2019-11-07] MEDS ORDERED: cloNIDine HCL 0.1 MG TABLET PO PRN (20:30)
[2019-11-07] MEDS ORDERED: ALBUTEROL SULFATE 2.5 MG/3 ML NEBU. NEB PRN (20:30)
[2019-11-07] MEDS ORDERED: guaiFENesin ORAL 200 MG/10 ML LIQUID. PO PRN (20:30)
[2019-11-07] MEDS ORDERED: 0.9 % SODIUM CHLORIDE 10 ML DISP.SYRIN. IV PRN (20:30)
[2019-11-07] MEDS: METOPROLOL TART IMMED RELEASE 50 MG TABLET. PO SCH (21:00)
[2019-11-07] MEDS ORDERED: APIXABAN 5 MG TABLET. PO SCH (21:00)
[2019-11-07] MEDS ORDERED: ANTI-COAG MONITOR BY PHARMACY. MC PRN (21:00)
[2019-11-07] MEDS ORDERED: HYDROmorphone 2 MG/ML VIAL IV PRN (21:30)
[2019-11-07] MEDS: IV NORMAL SALINE 1000ML BAG 1,000 ML IV SCH (21:42)
[2019-11-07 23:40] VITALS: BP 93/47
[2019-11-08 02:32] VITALS: BP 101/56
[2019-11-08 06:05] LABS: FECAL OB PT POSITIVE (NEG)
[2019-11-08 07:00] VITALS: BP 102/52
[2019-11-08] MEDS ORDERED: ASPIRIN ENTERIC COATED 81 MG TABLET.DR. PO SCH (07:00)
[2019-11-08] MEDS: BUDESONIDE 0.5 MG/2 ML NEBU. NEB SCH ×2 (07:23→19:51)
[2019-11-08] MEDS: IPRATRPIUM/ALBUTEROL 0.5/2.5MG 3 ML NEBU. NEB SCH ×4 (07:23→19:51)
[2019-11-08] MEDS: CALCIUM CARB/VIT D3 500/200 TABLET. PO SCH (08:00)
[2019-11-08] MEDS: METOPROLOL TART IMMED RELEASE 50 MG TABLET. PO SCH ×2 (09:00→21:18)
[2019-11-08] MEDS: MULTIVITAMIN with MINERAL TABLET. PO SCH (09:00)
[2019-11-08] MEDS: LISINOPRIL 10 MG TABLET PO SCH (09:00)
--- NOTE | 2019-11-08 09:03 | PDOC1 ---
History and Physical Date of Admission Date of Admission DATE: 11/08/19 TIME: 09:01 Source Source: Chart review, Patient History of Present Illness History of Present Illness Ms. Lopez is a 79 year old female admit overnight with acute nausea, vomiting, and diarrhea. Noted, at least 10 episodes of vomiting and 10 episodes of diarrhea today. She complains of left-sided and lower abdominal pain, feeling lightheaded, and weak. Patient denies any fever, cough, shortness of breath, chest pain, palpitations, swelling of extremities, or dysuria. The patient currently denies any nausea, and would like to eat. Patient states she lives at home by herself her son comes to visit her. She currently rates her pain as 4 out of 10 on the pain scale and describes it as aching. . Past Medical History Cardiovascular: HTN Pulmonary: Asthma, COPD CENTRAL NERVOUS SYSTEM: Other GI: GERD Heme/Onc: No pertinent hx Hepatobiliary: No pertinent hx Psych: No pertinent hx Musculoskeletal: Osteoarthritis Rheumatologic: No pertinent hx Infectious disease: No pertinent hx Renal/: No pertinent hx Endocrine: Hypothyroidism Past Surgical History Past Surgical History: Cholecystectomy, Tonsillectomy, Hysterectomy, Other Social History Smoke: No ALCOHOL: occassional Drugs: None Current Problem List Problem List Problems Medical Problems: (1) Colitis Status: Acute (2) Nausea vomiting and diarrhea Status: Acute (3) UTI (urinary tract infection) Status: Acute Current Medications Current Medications Current Medications Fentanyl Citrate (Fentanyl 2ml Vial) 25 mcg 1X ONCE IV Last administered on 11/07/19at 18:27; Start 11/07/19 at 18:15; Stop 11/07/19 at 18:19; Status DC Sodium Chloride 1,000 ml @ 1,000 mls/hr 1X ONCE IV Last administered on 11/07/19at 18:27; Start 11/07/19 at 18:15; Stop 11/07/19 at 19:14; Status DC Ceftriaxone Sodium (Rocephin) 1 gm 1X ONCE IVP Last administered on 11/07/19at 19:42; Start 11/07/19 at 18:45; Stop 11/07/19 at 19:00; Status DC Fentanyl Citrate (Fentanyl 2ml Vial) 25 mcg 1X ONCE IV Last administered on 11/07/19at 19:42; Start 11/07/19 at 19:30; Stop 11/07/19 at 19:33; Status DC Sodium Chloride (Normal Saline Flush) 3 ml QSHIFT PRN IV AFTER MEDS AND BLOOD DRAWS; Start 11/07/19 at 20:30 Sodium Chloride 1,000 ml @ 70 mls/hr [id number] IV Last administered on 11/07/19at 21:42; Start 11/07/19 at 20:28 Ondansetron HCl (Zofran) 4 mg PRN Q4HRS PRN IV NAUSEA/VOMITING; Start 11/07/19 at 20:30 Clonidine HCl (Catapres) 0.1 mg PRN Q6HRS PRN PO SBP>160 OR DBP>90; Start 11/07/19 at 20:30 Albuterol Sulfate (Ventolin Neb Soln) 2.5 mg PRN Q4HRS PRN NEB SHORTNESS OF BREATH; Start 11/07/19 at 20:30 Guaifenesin (Robitussin) 200 mg PRN Q4HRS PRN PO COUGH; Start 11/07/19 at 20:30 Enoxaparin Sodium (Lovenox 40mg Syringe) 40 mg Q24H SQ ; Start 11/07/19 at 20:30; Status UNV Apixaban (Eliquis) 5 mg BID PO Last administered on 11/07/19at 23:26; Start 11/07/19 at 21:00 Aspirin (Ecotrin) 81 mg DAILY07 PO ; Start 11/08/19 at 07:00 Levothyroxine Sodium (Synthroid) 50 mcg DAILY06 PO ; Start 11/08/19 at 06:00 Lisinopril (Prinivil) 10 mg DAILY PO ; Start 11/08/19 at 09:00 Metoprolol Tartrate (Lopressor) 50 mg BID PO ; Start 11/07/19 at 21:00 Tramadol HCl (Ultram) 50 mg PRN Q6HRS PRN PO MODERATE PAIN 4-6; Start 11/07/19 at 20:45 Calcium/Vitamin D (Oscal D 500mg/ 200uts) 1 tab DAILYWBKFT PO ; Start 11/08/19 at 08:00 Multivitamins (Thera M Plus) 1 tab DAILY PO ; Start 11/08/19 at 09:00 Fish Oil (Fish Oil) 1,000 mg DAILY07 PO ; Start 11/08/19 at 07:00 Pantoprazole Sodium (Protonix) 40 mg DAILYAC PO ; Start 11/08/19 at 07:30 Multivit/ Folic Acid/Iron (Multivitamin ) 1 tab DAILY07 PO ; Start 11/08/19 at 07:00 Albuterol/ Ipratropium (Duoneb) 3 ml RTQID NEB Last administered on 11/08/19at 07:23; Start 11/08/19 at 08:00 Budesonide (Pulmicort) 0.5 mg RTBID NEB Last administered on 11/08/19at 07:23; Start 11/08/19 at 08:00 Info (Anti-Coagulation Monitoring By Pharmacy) 1 each PRN DAILY PRN MC SEE COMMENTS Last administered on 11/08/19at 00:40; Start 11/07/19 at 21:00 Hydromorphone HCl (Dilaudid) 0.5 mg PRN Q4HRS PRN IV SEVERE PAIN 7-10 Last administered on 11/07/19at 21:41; Start 11/07/19 at 21:30; Stop 11/08/19 at 21:29 Active Scripts Active Prednisone (Prednisone) 10 Mg Tablet 10 Mg PO UD Take 4 tablets by mouth daily for 2 days, then take 3 tablets by mouth daily for 2 days, then take 2 tablets by mouth daily for 2 days, then take 1 tablets by mouth daily for 2 days, then stop. Reported Anoro Ellipta 62.5-25 Mcg Inh (Umeclidinium Brm/Vilanterol Tr) 1 Each Disk.w.dev 1 Each IH DAILY Furosemide 20 Mg Tablet 1 Tab PO QODAY Lisinopril 10 Mg Tablet 1 Tab PO DAILY Metoprolol Tartrate 50 Mg Tablet 50 Mg PO BID Eliquis (Apixaban) 5 Mg Tablet 5 Mg PO BID Omeprazole 20 Mg Capsule.dr 20 Mg PO DAILY07 Tramadol Hcl 50 Mg Tablet 50 Mg PO PRN Q6HRS Extra-Virt Plus Dha Softgel ( #57/Iron/Fa/Dss/Dha) 1 Each Capsule 1 Each PO DAILY07 Levothyroxine Sodium 50 Mcg Tablet 50 Mcg PO DAILY07 Fish Oil ([place]-3 Fatty Acids) 500 Mg Capsule 500 Mg PO DAILY07 Aspir 81 (Aspirin) 81 Mg Tablet.dr 81 Mg PO DAILY07 Multi Vitamin Daily (Multivitamin) 1 Each Tablet 1 Each PO DAILY07 Calcium 500 + D Tablet (Calcium Carbonate/Vitamin D3) 1 Each Tablet 1 Each PO DAILY07 Triamterene-Hctz 37.5-25 Mg Cp (Triamterene/Hydrochlorothiazid) 1 Each Capsule 1 Each PO DAILY07 Allergies Allergies: Coded Allergies: poison gary extract (Verified Allergy, Severe, Anaphylaxis, 01/11/18) Latex, Natural Rubber (Verified Allergy, Intermediate, DOES NOT KNOW, 11/05/14) PATIENT SAID SHE THINKS SHE HAS ALLERGY TO LATEX adhesive (Verified Allergy, Intermediate, Hives, 11/05/14) oxaprozin (Verified Allergy, Intermediate, Hives, 11/05/14) zinc oxide (Verified Allergy, Intermediate, Hives, 11/04/14) ROS General: YES: Fatigue, Malaise; No: Chills, Night Sweats, Appetite, Other PSYCHOLOGICAL ROS: No: Anxiety, Behavioral Disorder, Concentration difficultie, Decreased libido, Depression, Disorientation, Hallucinations, Hostility, Irritablity, Memory difficulties, Mood Swings, Obsessive thoughts, Physical abuse, Sexual abuse, Sleep disturbances, Suicidal ideation, Other Eyes: No Blurry vision, No Decreased vision, No Double vision, No Dry eyes, No Excessive tearing, No Eye Pain, No Itchy Eyes, No Loss of vision, No Photophobia, No Scotomata, No Uses contacts, No Uses glasses, No Other HEENT: YES: Heacaches; No: Visual Changes, Hearing change, Nasal congestion, Nasal discharge, Oral lesions, Sinus pain, Sore Throat, Epistaxis, Sneezing, Snoring, Tinnitus, Vertigo, Vocal changes, Other Respiratory: No: Cough, Hemoptysis, Orthopnea, Pleuritic Pain, Shortness of breath, SOB with excertion, Sputum Changes, Stridor, Tachypnea, Wheezing, Other Cardiovascular: No Chest Pain, No Palpitations, No Orthopnea, No Paroxysmal Noc. Dyspnea, No Edema, No Lt Headedness, No Other Gastrointestinal: Yes Nausea, Yes Vomiting, Yes Abdominal Pain, Yes Diarrhea, Yes Hematochezia Genitourinary: No Dysuria, No Frequency, No Incontinence, No Hematuria, No Retention, No Discharge, No Urgency, No Pain, No Flank Pain, No Other, No , No , No , No , No , No , No Musculoskeletal: Yes Joint Stiffness, Yes Pain In: (knees); No Gait Disturbance, No Joint Pain, No Joint Swelling, No Muscle Pain, No Muscular Weakness, No Swelling In:, No Other Neurological: No Behavorial Changes, No Bowel/Bladder ControlChng, No Confusion, No Dizziness, No Gait Disturbance, No Headaches, No Impaired Coord/balance, No Memory Loss, No Numbness/Tingling, No Seizures, No Speech Problems, No Tremors, No Visual Changes, No Weakness, No Other Physical Exam General: Alert, Oriented X3, Cooperative, mild distress HEENT: Atraumatic, PERRLA Lungs: Clear to auscultation Heart: S1S2, no murmurs, irregularly irregular Abdomen: Soft (tender, LLq, no rebound or guarding, ) Extremities: No cyanosis, Normal pulses Skin: No rashes Neuro: Normal speech, Sensation intact, Cranial nerves 3-12 NL Psych/Mental Status: Mental status NL, Mood NL Vitals Vitals Vital Signs Date Time Temp Pulse Resp B/P (MAP) Pulse Ox O2 Delivery O2 Flow Rate FiO2 11/08/19 07:24 97 Room Air 11/08/19 07:00 98.3 71 18 102/52 (69) 98.3 Labs Labs Laboratory Tests Test 11/07/19 17:45 11/07/19 18:10 11/08/19 05:00 White Blood Count 22.0 x10^3/uL (4.0-11.0) Red Blood Count 4.94 x10^6/uL (3.50-5.40) Hemoglobin 16.4 g/dL (12.0-15.5) Hematocrit 48.1 % (36.0-47.0) Mean Corpuscular Volume 97 fL (79-100) Mean Corpuscular Hemoglobin 33 pg (25-35) Mean Corpuscular Hemoglobin Concent 34 g/dL (31-37) Red Cell Distribution Width 13.3 % (11.5-14.5) Platelet Count 252 x10^3/uL (140-400) Neutrophils (%) (Auto) 92 % (31-73) Lymphocytes (%) (Auto) 2 % (24-48) Monocytes (%) (Auto) 6 % (0-9) Eosinophils (%) (Auto) 0 % (0-3) Basophils (%) (Auto) 0 % (0-3) Neutrophils # (Auto) 20.2 x10^3/uL (1.8-7.7) Lymphocytes # (Auto) 0.4 x10^3/uL (1.0-4.8) Monocytes # (Auto) 1.3 x10^3/uL (0.0-1.1) Eosinophils # (Auto) 0.1 x10^3/uL (0.0-0.7) Basophils # (Auto) 0.0 x10^3/uL (0.0-0.2) Segmented Neutrophils % 81 % (35-66) Band Neutrophils % 12 % (0-9) Monocytes % 5 % (0-10) Eosinophils % 2 % (0-5) Toxic Vacuolation Slight Platelet Estimate Adequate (ADEQUATE) Sodium Level 140 mmol/L (136-145) Potassium Level 3.6 mmol/L (3.5-5.1) Chloride Level 103 mmol/L (98-107) Carbon Dioxide Level 31 mmol/L (21-32) Anion Gap 6 (6-14) Blood Urea Nitrogen 20 mg/dL (7-20) Creatinine 1.4 mg/dL (0.6-1.0) Estimated GFR (Cockcroft-Gault) 36.2 BUN/Creatinine Ratio 14 (6-20) Glucose Level 114 mg/dL (70-99) Calcium Level 9.8 mg/dL (8.5-10.1) Magnesium Level 1.5 mg/dL (1.8-2.4) Total Bilirubin 1.0 mg/dL (0.2-1.0) Aspartate Amino Transf (AST/SGOT) 28 U/L (15-37) Alanine Aminotransferase (ALT/SGPT) 23 U/L (14-59) Alkaline Phosphatase 183 U/L (46-116) Total Protein 6.5 g/dL (6.4-8.2) Albumin 3.1 g/dL (3.4-5.0) Albumin/Globulin Ratio 0.9 (1.0-1.7) Lipase 282 U/L (73-393) Urine Collection Type Unknown Urine Color Martina Urine Clarity Cloudy Urine pH 6.5 (<5.0-8.0) Urine Specific [place] 1.010 (1.000-1.030) Urine Protein 100 mg/dL (NEG-TRACE) Urine Glucose (UA) Negative mg/dL (NEG) Urine Ketones (Stick) Negative mg/dL (NEG) Urine Blood Negative (NEG) Urine Nitrite Negative (NEG) Urine Bilirubin Negative (NEG) Urine Urobilinogen Dipstick 1.0 mg/dL (0.2 mg/dL) Urine Leukocyte Esterase Large (NEG) Urine RBC 3-5 /HPF (0-2) Urine WBC 20-40 /HPF (0-4) Urine Squamous Epithelial Cells Mod /LPF Urine Transitional Epithelial Cells Few /LPF Urine Amorphous Sediment Present /HPF Urine Bacteria Many /HPF (0-FEW) Urine Hyaline Casts Moderate /HPF Urine Granular Casts Few /HPF Stool Occult Blood Positive (NEG) Laboratory Tests Test 11/07/19 17:45 11/07/19 18:10 11/08/19 05:00 White Blood Count 22.0 x10^3/uL (4.0-11.0) Red Blood Count 4.94 x10^6/uL (3.50-5.40) Hemoglobin 16.4 g/dL (12.0-15.5) Hematocrit 48.1 % (36.0-47.0) Mean Corpuscular Volume 97 fL (79-100) Mean Corpuscular Hemoglobin 33 pg (25-35) Mean Corpuscular Hemoglobin Concent 34 g/dL (31-37) Red Cell Distribution Width 13.3 % (11.5-14.5) Platelet Count 252 x10^3/uL (140-400) Neutrophils (%) (Auto) 92 % (31-73) Lymphocytes (%) (Auto) 2 % (24-48) Monocytes (%) (Auto) 6 % (0-9) Eosinophils (%) (Auto) 0 % (0-3) Basophils (%) (Auto) 0 % (0-3) Neutrophils # (Auto) 20.2 x10^3/uL (1.8-7.7) Lymphocytes # (Auto) 0.4 x10^3/uL (1.0-4.8) Monocytes # (Auto) 1.3 x10^3/uL (0.0-1.1) Eosinophils # (Auto) 0.1 x10^3/uL (0.0-0.7) Basophils # (Auto) 0.0 x10^3/uL (0.0-0.2) Segmented Neutrophils % 81 % (35-66) Band Neutrophils % 12 % (0-9) Monocytes % 5 % (0-10) Eosinophils % 2 % (0-5) Toxic Vacuolation Slight Platelet Estimate Adequate (ADEQUATE) Sodium Level 140 mmol/L (136-145) Potassium Level 3.6 mmol/L (3.5-5.1) Chloride Level 103 mmol/L (98-107) Carbon Dioxide Level 31 mmol/L (21-32) Anion Gap 6 (6-14) Blood Urea Nitrogen 20 mg/dL (7-20) Creatinine 1.4 mg/dL (0.6-1.0) Estimated GFR (Cockcroft-Gault) 36.2 BUN/Creatinine Ratio 14 (6-20) Glucose Level 114 mg/dL (70-99) Calcium Level 9.8 mg/dL (8.5-10.1) Magnesium Level 1.5 mg/dL (1.8-2.4) Total Bilirubin 1.0 mg/dL (0.2-1.0) Aspartate Amino Transf (AST/SGOT) 28 U/L (15-37) Alanine Aminotransferase (ALT/SGPT) 23 U/L (14-59) Alkaline Phosphatase 183 U/L (46-116) Total Protein 6.5 g/dL (6.4-8.2) Albumin 3.1 g/dL (3.4-5.0) Albumin/Globulin Ratio 0.9 (1.0-1.7) Lipase 282 U/L (73-393) Urine Collection Type Unknown Urine Color Martina Urine Clarity Cloudy Urine pH 6.5 (<5.0-8.0) Urine Specific [place] 1.010 (1.000-1.030) Urine Protein 100 mg/dL (NEG-TRACE) Urine Glucose (UA) Negative mg/dL (NEG) Urine Ketones (Stick) Negative mg/dL (NEG) Urine Blood Negative (NEG) Urine Nitrite Negative (NEG) Urine Bilirubin Negative (NEG) Urine Urobilinogen Dipstick 1.0 mg/dL (0.2 mg/dL) Urine Leukocyte Esterase Large (NEG) Urine RBC 3-5 /HPF (0-2) Urine WBC 20-40 /HPF (0-4) Urine Squamous Epithelial Cells Mod /LPF Urine Transitional Epithelial Cells Few /LPF Urine Amorphous Sediment Present /HPF Urine Bacteria Many /HPF (0-FEW) Urine Hyaline Casts Moderate /HPF Urine Granular Casts Few /HPF Stool Occult Blood Positive (NEG) VTE Prophylaxis Ordered VTE Prophylaxis Devices: No VTE Pharmacological Prophylaxi: Contraindicated Assessment/Plan Assessment/Plan abdominal pain, flankpain bright red blood per rectum, still taking eliquis, will stop, recheck Hgb, transfuse if necessary, stable now. UTI, pyelonephritis, sepsis rocephin and IV fluids nausea and vomiting, poor PO intake, waekness CKD 3, possible vasomotor nephropathy, will hydrate afib, stable Justicifation of Admission Dx: Justifications for Admission: Justification of Admission Dx: Yes Sepsis: Infection RAFAEL KEARNEY MD Nov 08, 2019 09:03
[2019-11-08] MEDS: IV NORMAL SALINE 1000ML BAG 1,000 ML IV SCH ×2 (10:44→18:14)
[2019-11-08] MEDS: OMEGA-3 FATTY ACIDS/FISH OIL 1,000 MG CAPSULE. PO SCH (10:57)
[2019-11-08] MEDS: traMADol 50 MG TABLET PO PRN ×2 (10:57→21:19)
[2019-11-08] MEDS: PRENATAL MULTIVITAMIN TABLET. PO SCH (10:58)
[2019-11-08] MEDS: LEVOTHYROXINE 50 MCG TABLET PO SCH (10:59)
[2019-11-08] MEDS: PANTOPRAZOLE 40 MG TABLET.DR. PO SCH (10:59)
[2019-11-08 11:00] VITALS: BP 106/61
--- NOTE | 2019-11-08 12:01 | PDOC2 ---
CONSULT Date of Consult Date of Consult DATE: 11/08/19 TIME: 11:55 Reason for Consult Reason for Consult: Sudden onset of vomiting and diarrhea today History of Present Illness Reason for Visit: This is an 79-year-old female who was in good health until yesterday afternoon when she had the sudden onset of crampy abdominal pain, vomiting and then diarrhea. She also noticed some blood in the diarrhea overnight. She is not had symptoms like this before. Normally she has a regular bowel pattern and denies any rectal bleeding. Her last colonoscopy was about 8 years ago. She has been sheltering at home and still has limited exposure to others who sonya ht be ill. She is never had C. difficile or other enteritis infections as far she knows. She does give an interesting history that her blood pressure was low recently and so some of her medicines were changed and then it became high again and then it has been changed more recently. It is feasible that she may have developed transient hypoperfusion of her gut that might have triggered this as well. She also gave a story that several family members have had asymptomatic but significant ulcer disease with bleeding. This includes her mother, her son and her sister. She is concerned now because of the bleeding that she might have an asymptomatic ulcer as well. Past Medical History Cardiovascular: HTN Pulmonary: Asthma, COPD CENTRAL NERVOUS SYSTEM: Other GI: GERD Heme/Onc: No pertinent hx Hepatobiliary: No pertinent hx Psych: No pertinent hx Musculoskeletal: Osteoarthritis Rheumatologic: No pertinent hx Infectious disease: No pertinent hx Renal/: No pertinent hx Endocrine: Hypothyroidism Past Surgical History Past Surgical History: Cholecystectomy, Tonsillectomy, Hysterectomy, Other Social History No ALCOHOL: occassional Drugs: None Lives: with Family Domestic Violence: Neg Current Problem List Problem List Problems Medical Problems: (1) Colitis Status: Acute (2) Nausea vomiting and diarrhea Status: Acute (3) UTI (urinary tract infection) Status: Acute Current Medications Current Medications Current Medications Fentanyl Citrate (Fentanyl 2ml Vial) 25 mcg 1X ONCE IV Last administered on 11/07/19at 18:27; Start 11/07/19 at 18:15; Stop 11/07/19 at 18:19; Status DC Sodium Chloride 1,000 ml @ 1,000 mls/hr 1X ONCE IV Last administered on 11/07/19at 18:27; Start 11/07/19 at 18:15; Stop 11/07/19 at 19:14; Status DC Ceftriaxone Sodium (Rocephin) 1 gm 1X ONCE IVP Last administered on 11/07/19at 19:42; Start 11/07/19 at 18:45; Stop 11/07/19 at 19:00; Status DC Fentanyl Citrate (Fentanyl 2ml Vial) 25 mcg 1X ONCE IV Last administered on 11/07/19at 19:42; Start 11/07/19 at 19:30; Stop 11/07/19 at 19:33; Status DC Sodium Chloride (Normal Saline Flush) 3 ml QSHIFT PRN IV AFTER MEDS AND BLOOD DRAWS; Start 11/07/19 at 20:30 Sodium Chloride 1,000 ml @ 80 mls/hr [id number] IV Last administered on 11/07/19at 21:42; Start 11/07/19 at 20:28 Ondansetron HCl (Zofran) 4 mg PRN Q4HRS PRN IV NAUSEA/VOMITING; Start 11/07/19 at 20:30 Clonidine HCl (Catapres) 0.1 mg PRN Q6HRS PRN PO SBP>160 OR DBP>90; Start 11/07/19 at 20:30 Albuterol Sulfate (Ventolin Neb Soln) 2.5 mg PRN Q4HRS PRN NEB SHORTNESS OF BREATH; Start 11/07/19 at 20:30 Guaifenesin (Robitussin) 200 mg PRN Q4HRS PRN PO COUGH; Start 11/07/19 at 20:30 Enoxaparin Sodium (Lovenox 40mg Syringe) 40 mg Q24H SQ ; Start 11/07/19 at 20:30; Status UNV Apixaban (Eliquis) 5 mg BID PO Last administered on 11/07/19at 23:26; Start 11/07/19 at 21:00; Stop 11/08/19 at 09:18; Status DC Aspirin (Ecotrin) 81 mg DAILY07 PO ; Start 11/08/19 at 07:00; Stop 11/08/19 at 09:18; Status DC Levothyroxine Sodium (Synthroid) 50 mcg DAILY06 PO Last administered on 11/08/19at 10:59; Start 11/08/19 at 06:00 Lisinopril (Prinivil) 10 mg DAILY PO ; Start 11/08/19 at 09:00 Metoprolol Tartrate (Lopressor) 50 mg BID PO ; Start 11/07/19 at 21:00 Tramadol HCl (Ultram) 50 mg PRN Q6HRS PRN PO MODERATE PAIN 4-6 Last administered on 11/08/19 10:57; Start 11/07/19 at 20:45 Calcium/Vitamin D (Oscal D 500mg/ 200uts) 1 tab DAILYWBKFT PO ; Start 11/08/19 at 08:00 Multivitamins (Thera M Plus) 1 tab DAILY PO ; Start 11/08/19 at 09:00 Fish Oil (Fish Oil) 1,000 mg DAILY07 PO Last administered on 11/08/19 10:57; Start 11/08/19 at 07:00 Pantoprazole Sodium (Protonix) 40 mg DAILYAC PO Last administered on 11/08/19 10:59; Start 11/08/19 at 07:30 Multivit/ Folic Acid/Iron (Multivitamin ) 1 tab DAILY07 PO Last administered on 11/08/19 10:58; Start 11/08/19 at 07:00 Albuterol/ Ipratropium (Duoneb) 3 ml RTQID NEB Last administered on 11/08/19 07:23; Start 11/08/19 at 08:00 Budesonide (Pulmicort) 0.5 mg RTBID NEB Last administered on 11/08/19 07:23; Start 11/08/19 at 08:00 Info (Anti-Coagulation Monitoring By Pharmacy) 1 each PRN DAILY PRN MC SEE COMMENTS Last administered on 11/08/19at 00:40; Start 11/07/19 at 21:00 Hydromorphone HCl (Dilaudid) 0.5 mg PRN Q4HRS PRN IV SEVERE PAIN 7-10 Last administered on 11/07/19 21:41; Start 11/07/19 at 21:30; Stop 11/08/19 at 21:29 Active Scripts Active Prednisone (Prednisone) 10 Mg Tablet 10 Mg PO UD Take 4 tablets by mouth daily for 2 days, then take 3 tablets by mouth daily for 2 days, then take 2 tablets by mouth daily for 2 days, then take 1 tablets by mouth daily for 2 days, then stop. Reported Anoro Ellipta 62.5-25 Mcg Inh (Umeclidinium Brm/Vilanterol Tr) 1 Each Disk.w.dev 1 Each IH DAILY Furosemide 20 Mg Tablet 1 Tab PO QODAY Lisinopril 10 Mg Tablet 1 Tab PO DAILY Metoprolol Tartrate 50 Mg Tablet 50 Mg PO BID Eliquis (Apixaban) 5 Mg Tablet 5 Mg PO BID Omeprazole 20 Mg Capsule.dr 20 Mg PO DAILY07 Tramadol Hcl 50 Mg Tablet 50 Mg PO PRN Q6HRS Extra-Virt Plus Dha Softgel ( #57/Iron/Fa/Dss/Dha) 1 Each Capsule 1 Each PO DAILY07 Levothyroxine Sodium 50 Mcg Tablet 50 Mcg PO DAILY07 Fish Oil (S[place]ell-3 Fatty Acids) 500 Mg Capsule 500 Mg PO DAILY07 Aspir 81 (Aspirin) 81 Mg Tablet.dr 81 Mg PO DAILY07 Multi Vitamin Daily (Multivitamin) 1 Each Tablet 1 Each PO DAILY07 Calcium 500 + D Tablet (Calcium Carbonate/Vitamin D3) 1 Each Tablet 1 Each PO DAILY07 Triamterene-Hctz 37.5-25 Mg Cp (Triamterene/Hydrochlorothiazid) 1 Each Capsule 1 Each PO DAILY07 Allergies Allergies: Coded Allergies: poison gary extract (Verified Allergy, Severe, Anaphylaxis, 01/11/18) Latex, Natural Rubber (Verified Allergy, Intermediate, DOES NOT KNOW, 11/05/14) PATIENT SAID SHE THINKS SHE HAS ALLERGY TO LATEX adhesive (Verified Allergy, Intermediate, Hives, 11/05/14) oxaprozin (Verified Allergy, Intermediate, Hives, 11/05/14) zinc oxide (Verified Allergy, Intermediate, Hives, 11/04/14) Physical Exam General: Alert, Oriented X3, Cooperative HEENT: Atraumatic, PERRLA Lungs: Clear to auscultation Heart: Regular rate, Normal S1, Normal S2 Abdomen: Normal bowel sounds, Soft, No tenderness, No hepatosplenomegaly Extremities: No clubbing, No cyanosis Neuro: Normal speech Psych/Mental Status: Mental status NL Vitals VITALS Vital Signs Date Time Temp Pulse Resp B/P (MAP) Pulse Ox O2 Delivery O2 Flow Rate FiO2 11/08/19 11:00 97.8 95 18 106/61 (76) 97 Room Air 97.8 Labs Labs Laboratory Tests Test 11/07/19 17:45 11/07/19 18:10 11/08/19 05:00 White Blood Count 22.0 x10^3/uL (4.0-11.0) Red Blood Count 4.94 x10^6/uL (3.50-5.40) Hemoglobin 16.4 g/dL (12.0-15.5) Hematocrit 48.1 % (36.0-47.0) Mean Corpuscular Volume 97 fL (79-100) Mean Corpuscular Hemoglobin 33 pg (25-35) Mean Corpuscular Hemoglobin Concent 34 g/dL (31-37) Red Cell Distribution Width 13.3 % (11.5-14.5) Platelet Count 252 x10^3/uL (140-400) Neutrophils (%) (Auto) 92 % (31-73) Lymphocytes (%) (Auto) 2 % (24-48) Monocytes (%) (Auto) 6 % (0-9) Eosinophils (%) (Auto) 0 % (0-3) Basophils (%) (Auto) 0 % (0-3) Neutrophils # (Auto) 20.2 x10^3/uL (1.8-7.7) Lymphocytes # (Auto) 0.4 x10^3/uL (1.0-4.8) Monocytes # (Auto) 1.3 x10^3/uL (0.0-1.1) Eosinophils # (Auto) 0.1 x10^3/uL (0.0-0.7) Basophils # (Auto) 0.0 x10^3/uL (0.0-0.2) Segmented Neutrophils % 81 % (35-66) Band Neutrophils % 12 % (0-9) Monocytes % 5 % (0-10) Eosinophils % 2 % (0-5) Toxic Vacuolation Slight Platelet Estimate Adequate (ADEQUATE) Sodium Level 140 mmol/L (136-145) Potassium Level 3.6 mmol/L (3.5-5.1) Chloride Level 103 mmol/L (98-107) Carbon Dioxide Level 31 mmol/L (21-32) Anion Gap 6 (6-14) Blood Urea Nitrogen 20 mg/dL (7-20) Creatinine 1.4 mg/dL (0.6-1.0) Estimated GFR (Cockcroft-Gault) 36.2 BUN/Creatinine Ratio 14 (6-20) Glucose Level 114 mg/dL (70-99) Calcium Level 9.8 mg/dL (8.5-10.1) Magnesium Level 1.5 mg/dL (1.8-2.4) Total Bilirubin 1.0 mg/dL (0.2-1.0) Aspartate Amino Transf (AST/SGOT) 28 U/L (15-37) Alanine Aminotransferase (ALT/SGPT) 23 U/L (14-59) Alkaline Phosphatase 183 U/L (46-116) Total Protein 6.5 g/dL (6.4-8.2) Albumin 3.1 g/dL (3.4-5.0) Albumin/Globulin Ratio 0.9 (1.0-1.7) Lipase 282 U/L (73-393) Urine Collection Type Unknown Urine Color Martina Urine Clarity Cloudy Urine pH 6.5 (<5.0-8.0) Urine Specific [place] 1.010 (1.000-1.030) Urine Protein 100 mg/dL (NEG-TRACE) Urine Glucose (UA) Negative mg/dL (NEG) Urine Ketones (Stick) Negative mg/dL (NEG) Urine Blood Negative (NEG) Urine Nitrite Negative (NEG) Urine Bilirubin Negative (NEG) Urine Urobilinogen Dipstick 1.0 mg/dL (0.2 mg/dL) Urine Leukocyte Esterase Large (NEG) Urine RBC 3-5 /HPF (0-2) Urine WBC 20-40 /HPF (0-4) Urine Squamous Epithelial Cells Mod /LPF Urine Transitional Epithelial Cells Few /LPF Urine Amorphous Sediment Present /HPF Urine Bacteria Many /HPF (0-FEW) Urine Hyaline Casts Moderate /HPF Urine Granular Casts Few /HPF Stool Occult Blood Positive (NEG) Laboratory Tests Test 11/07/19 17:45 11/07/19 18:10 11/08/19 05:00 White Blood Count 22.0 x10^3/uL (4.0-11.0) Red Blood Count 4.94 x10^6/uL (3.50-5.40) Hemoglobin 16.4 g/dL (12.0-15.5) Hematocrit 48.1 % (36.0-47.0) Mean Corpuscular Volume 97 fL (79-100) Mean Corpuscular Hemoglobin 33 pg (25-35) Mean Corpuscular Hemoglobin Concent 34 g/dL (31-37) Red Cell Distribution Width 13.3 % (11.5-14.5) Platelet Count 252 x10^3/uL (140-400) Neutrophils (%) (Auto) 92 % (31-73) Lymphocytes (%) (Auto) 2 % (24-48) Monocytes (%) (Auto) 6 % (0-9) Eosinophils (%) (Auto) 0 % (0-3) Basophils (%) (Auto) 0 % (0-3) Neutrophils # (Auto) 20.2 x10^3/uL (1.8-7.7) Lymphocytes # (Auto) 0.4 x10^3/uL (1.0-4.8) Monocytes # (Auto) 1.3 x10^3/uL (0.0-1.1) Eosinophils # (Auto) 0.1 x10^3/uL (0.0-0.7) Basophils # (Auto) 0.0 x10^3/uL (0.0-0.2) Segmented Neutrophils % 81 % (35-66) Band Neutrophils % 12 % (0-9) Monocytes % 5 % (0-10) Eosinophils % 2 % (0-5) Toxic Vacuolation Slight Platelet Estimate Adequate (ADEQUATE) Sodium Level 140 mmol/L (136-145) Potassium Level 3.6 mmol/L (3.5-5.1) Chloride Level 103 mmol/L (98-107) Carbon Dioxide Level 31 mmol/L (21-32) Anion Gap 6 (6-14) Blood Urea Nitrogen 20 mg/dL (7-20) Creatinine 1.4 mg/dL (0.6-1.0) Estimated GFR (Cockcroft-Gault) 36.2 BUN/Creatinine Ratio 14 (6-20) Glucose Level 114 mg/dL (70-99) Calcium Level 9.8 mg/dL (8.5-10.1) Magnesium Level 1.5 mg/dL (1.8-2.4) Total Bilirubin 1.0 mg/dL (0.2-1.0) Aspartate Amino Transf (AST/SGOT) 28 U/L (15-37) Alanine Aminotransferase (ALT/SGPT) 23 U/L (14-59) Alkaline Phosphatase 183 U/L (46-116) Total Protein 6.5 g/dL (6.4-8.2) Albumin 3.1 g/dL (3.4-5.0) Albumin/Globulin Ratio 0.9 (1.0-1.7) Lipase 282 U/L (73-393) Urine Collection Type Unknown Urine Color Martina Urine Clarity Cloudy Urine pH 6.5 (<5.0-8.0) Urine Specific [place] 1.010 (1.000-1.030) Urine Protein 100 mg/dL (NEG-TRACE) Urine Glucose (UA) Negative mg/dL (NEG) Urine Ketones (Stick) Negative mg/dL (NEG) Urine Blood Negative (NEG) Urine Nitrite Negative (NEG) Urine Bilirubin Negative (NEG) Urine Urobilinogen Dipstick 1.0 mg/dL (0.2 mg/dL) Urine Leukocyte Esterase Large (NEG) Urine RBC 3-5 /HPF (0-2) Urine WBC 20-40 /HPF (0-4) Urine Squamous Epithelial Cells Mod /LPF Urine Transitional Epithelial Cells Few /LPF Urine Amorphous Sediment Present /HPF Urine Bacteria Many /HPF (0-FEW) Urine Hyaline Casts Moderate /HPF Urine Granular Casts Few /HPF Stool Occult Blood Positive (NEG) Images Images CT scan. Shows some parenchymal lung changes which were unrecognized. Also shows some subtle descending colon potential inflammatory changes Assessment/Plan Assessment/Plan Sudden onset of vomiting, crampy abdominal pain and diarrhea. Some rectal bleeding as well. Sudden onset makes me suspicious of a infectious enteritis and so stool cultures have been submitted including for C. difficile. Her history however is also suspicious for the possibility of ischemic colitis based on her change in blood pressure medicines recently. She also gives an interesting history of a dull ache in her left abdomen that started about 3 months ago when she began to exercise more during the pandemic with her treadmill. She is not sure if they are related but denies any change in bowel pattern at that time or rectal bleeding. She has not had a colonoscopy in about 8 years. Plan: Check stool studies and follow labs Based on her concerns of peptic disease, abdominal pain 3 months ago and the sudden onset of her symptoms now along with the rectal bleeding, it may be prudent to consider EGD and colonoscopy when she is more stable to rule out occult polyps, neoplasia, colitis, peptic ulcer disease etc. JUAN F VAZ MD Nov 08, 2019 12:01
[2019-11-08 13:16] LABS: HEMATOCRIT 41.8 % (36.0-47.0); HEMOGLOBIN 14.1 g/dL (12.0-15.5); RED BLOOD COUNT 4.33 x10^6/uL (3.50-5.40); RED CELL DISTRIBUTION WIDTH 13.4 % (11.5-14.5); WHITE BLOOD COUNT 14.6 x10^3/uL (4.0-11.0)
[2019-11-08 15:00] VITALS: BP 128/66
[2019-11-08 19:21] VITALS: BP 121/58
[2019-11-08] MEDS: cefTRIAXone IV Push 1 GM VIAL. IVP SCH (21:17)
[2019-11-08 23:00] VITALS: BP 106/48
[2019-11-09 03:20] VITALS: BP 120/53
[2019-11-09] MEDS: IV NORMAL SALINE 1000ML BAG 1,000 ML IV SCH ×2 (04:16→20:17)
[2019-11-09 05:08] LABS: BASO % 0 % (0-3); EOS # 0.2 x10^3/uL (0.0-0.7); EOS % 2 % (0-3); HEMATOCRIT 40.2 % (36.0-47.0); HEMOGLOBIN 13.6 g/dL (12.0-15.5); LYMPH % 10 % (24-48); MEAN CORPUSCULAR HEMOGLOBIN 33 pg (25-35); MEAN CORPUSCULAR HGB CONC 34 g/dL (31-37); MEAN CORPUSCULAR VOLUME 97 fL (79-100); MONO # 0.9 x10^3/uL (0.0-1.1); MONO % 9 % (0-9); NEUT # 8.1 x10^3/uL (1.8-7.7); NEUT % 80 % (31-73); PLATELET COUNT 183 x10^3/uL (140-400); RED BLOOD COUNT 4.14 x10^6/uL (3.50-5.40); RED CELL DISTRIBUTION WIDTH 13.5 % (11.5-14.5); WHITE BLOOD COUNT 10.2 x10^3/uL (4.0-11.0)
[2019-11-09 05:29] LABS: CALCIUM 8.4 mg/dL (8.5-10.1); CREATININE 1.2 mg/dL (0.6-1.0); GFR 43.2; POTASSIUM 3.2 mmol/L (3.5-5.1)
[2019-11-09] MEDS: PANTOPRAZOLE 40 MG TABLET.DR. PO SCH (06:08)
[2019-11-09] MEDS: OMEGA-3 FATTY ACIDS/FISH OIL 1,000 MG CAPSULE. PO SCH (06:10)
[2019-11-09] MEDS: LEVOTHYROXINE 50 MCG TABLET PO SCH (06:11)
[2019-11-09] MEDS: PRENATAL MULTIVITAMIN TABLET. PO SCH (06:11)
[2019-11-09 07:00] VITALS: BP 119/77
[2019-11-09] MEDS: IPRATRPIUM/ALBUTEROL 0.5/2.5MG 3 ML NEBU. NEB SCH ×4 (07:24→20:00)
[2019-11-09] MEDS: BUDESONIDE 0.5 MG/2 ML NEBU. NEB SCH ×2 (07:24→20:00)
[2019-11-09] MEDS: MULTIVITAMIN with MINERAL TABLET. PO SCH (07:36)
[2019-11-09] MEDS: CALCIUM CARB/VIT D3 500/200 TABLET. PO SCH (08:00)
[2019-11-09] MEDS: METOPROLOL TART IMMED RELEASE 50 MG TABLET. PO SCH ×2 (09:20→21:09)
[2019-11-09] MEDS: LISINOPRIL 10 MG TABLET PO SCH (09:20)
--- NOTE | 2019-11-09 09:48 | NUR ---
SW following. Discussed with RN, pt from home alone, clear liquid diet, room air, IV rocephin. No PT/OT ordered - RN will order if pt needs this. SW will continue to follow.
--- NOTE | 2019-11-09 10:43 | PDOC ---
Date of Service: DATE: 11/09/19 TIME: 10:34 Subjective: Subjective: Tolerating liquids, feels better. Hasn't stooled. Objective: Objective: EGD and colonoscopy 2014: reflux esophagitis non-erosive gastritis internal hemorrhoids Nurse notes fatigue. Vital Signs: Vital Signs Date Time Temp Pulse Resp B/P (MAP) Pulse Ox O2 Delivery O2 Flow Rate FiO2 11/09/19 09:20 88 120/53 11/09/19 07:25 97 Room Air 11/09/19 07:00 98.1 18 98.1 Labs: Laboratory Tests Test 11/08/19 12:54 11/09/19 04:10 White Blood Count 14.6 x10^3/uL 10.2 x10^3/uL Red Blood Count 4.33 x10^6/uL 4.14 x10^6/uL Hemoglobin 14.1 g/dL 13.6 g/dL Hematocrit 41.8 % 40.2 % Mean Corpuscular Volume 97 fL 97 fL Mean Corpuscular Hemoglobin 33 pg 33 pg Mean Corpuscular Hemoglobin Concent 34 g/dL 34 g/dL Red Cell Distribution Width 13.4 % 13.5 % Platelet Count 223 x10^3/uL 183 x10^3/uL Neutrophils (%) (Auto) 80 % Lymphocytes (%) (Auto) 10 % Monocytes (%) (Auto) 9 % Eosinophils (%) (Auto) 2 % Basophils (%) (Auto) 0 % Neutrophils # (Auto) 8.1 x10^3/uL Lymphocytes # (Auto) 1.0 x10^3/uL Monocytes # (Auto) 0.9 x10^3/uL Eosinophils # (Auto) 0.2 x10^3/uL Basophils # (Auto) 0.0 x10^3/uL Sodium Level 140 mmol/L Potassium Level 3.2 mmol/L Chloride Level 105 mmol/L Carbon Dioxide Level 26 mmol/L Anion Gap 9 Blood Urea Nitrogen 18 mg/dL Creatinine 1.2 mg/dL Estimated GFR (Cockcroft-Gault) 43.2 Glucose Level 94 mg/dL Calcium Level 8.4 mg/dL URINE CULTURE Preliminary Preliminary GREATER THAN 100,000 CFU/ML GRAM NEGATIVE RODS on 11/09/19 at 0912 FINAL ID= [ESCHERICHIA COLI] Imaging: CT A/P IMPRESSION: 1. Wall thickening of the descending colon could be due to underdistention, however there is subtle pericolic haziness which might represent inflammation as can be seen with colitis. 2. Diffuse mosaic attenuation of the lung parenchyma, possibly due to small airways disease or pulmonary hypertension. Multiple small bilateral noncalcified pulmonary nodules appear stable from 2018 and may represent noncalcified pulmonary granulomas. Diffuse idiopathic pulmonary neuroendocrine cell hyperplasia (DIPNECH) might also be considered, which can be seen as multiple noncalcified pulmonary nodules combined with mosaic lung attenuation. PE: GEN: NAD LUNGS: CTAB HEART: RRR ABD: soft, non-tender NEURO/PSYCH: A & O 3, a bit lethargic A/P: Vomiting, abd pain, diarrhea - resolving UTI - per primary Leukocytosis (resolved), elevated Alk Phos, +Hemoccult H/o GERD/Lozada's CRC - UTD -- Okay to try advancing diet. Continue PPI. Stool tests uncollected (because no longer having diarrhea). Justicifation of Admission Dx: Justifications for Admission: Justification of Admission Dx: Yes Sepsis: Infection NELLY ROSALES Nov 09, 2019 10:43
[2019-11-09 11:00] VITALS: BP 107/59
[2019-11-09 15:00] VITALS: BP 110/62
--- NOTE | 2019-11-09 17:49 | PDOC ---
PROGRESS NOTES Date of Service: DATE: 11/09/19 TIME: 17:44 Chief Complaint Chief Complaint Nausea, vomiting, bloody diarrhea History of Present Illness History of Present Illness Patient reports resolution of her nausea and vomiting. Tolerating full liquid diet. She has not had a bowel movement today, and she attributes this to poor PO intake prior to admission. She denies any fever. Vitals Vitals Vital Signs Date Time Temp Pulse Resp B/P (MAP) Pulse Ox O2 Delivery O2 Flow Rate FiO2 11/09/19 15:52 Room Air 11/09/19 15:00 97.8 84 18 110/62 (78) 94 97.8 Physical Exam General: Alert, Oriented X3, Cooperative Heart: Regular rate, Normal S1, Normal S2 Lungs: Wheezing Abdomen: Normal bowel sounds, Soft, No hepatosplenomegaly, Other (Mild LLQ tenderness) Extremities: No clubbing, No cyanosis Skin: No rashes Labs LABS Laboratory Tests Test 11/09/19 04:10 White Blood Count 10.2 x10^3/uL (4.0-11.0) Red Blood Count 4.14 x10^6/uL (3.50-5.40) Hemoglobin 13.6 g/dL (12.0-15.5) Hematocrit 40.2 % (36.0-47.0) Mean Corpuscular Volume 97 fL (79-100) Mean Corpuscular Hemoglobin 33 pg (25-35) Mean Corpuscular Hemoglobin Concent 34 g/dL (31-37) Red Cell Distribution Width 13.5 % (11.5-14.5) Platelet Count 183 x10^3/uL (140-400) Neutrophils (%) (Auto) 80 % (31-73) Lymphocytes (%) (Auto) 10 % (24-48) Monocytes (%) (Auto) 9 % (0-9) Eosinophils (%) (Auto) 2 % (0-3) Basophils (%) (Auto) 0 % (0-3) Neutrophils # (Auto) 8.1 x10^3/uL (1.8-7.7) Lymphocytes # (Auto) 1.0 x10^3/uL (1.0-4.8) Monocytes # (Auto) 0.9 x10^3/uL (0.0-1.1) Eosinophils # (Auto) 0.2 x10^3/uL (0.0-0.7) Basophils # (Auto) 0.0 x10^3/uL (0.0-0.2) Sodium Level 140 mmol/L (136-145) Potassium Level 3.2 mmol/L (3.5-5.1) Chloride Level 105 mmol/L (98-107) Carbon Dioxide Level 26 mmol/L (21-32) Anion Gap 9 (6-14) Blood Urea Nitrogen 18 mg/dL (7-20) Creatinine 1.2 mg/dL (0.6-1.0) Estimated GFR (Cockcroft-Gault) 43.2 Glucose Level 94 mg/dL (70-99) Calcium Level 8.4 mg/dL (8.5-10.1) Review of Systems Review of Systems Abdominal pain. Denies nausea, vomiting. Denies fever. Assessment and Plan Assessmemt and Plan Problems Medical Problems: (1) Colitis Status: Acute (2) Nausea vomiting and diarrhea Status: Acute (3) UTI (urinary tract infection) Status: Acute Plan: Cont Rocephin. Stool studies pending. Comment Review of Relevant I have reviewed the following items aaliyah (where applicable) has been applied. Labs Laboratory Tests Test 11/07/19 18:10 11/08/19 05:00 11/08/19 12:54 11/09/19 04:10 Urine Collection Type Unknown Urine Color Martina Urine Clarity Cloudy Urine pH 6.5 (<5.0-8.0) Urine Specific Wilbur 1.010 (1.000-1.030) Urine Protein 100 mg/dL (NEG-TRACE) Urine Glucose (UA) Negative mg/dL (NEG) Urine Ketones (Stick) Negative mg/dL (NEG) Urine Blood Negative (NEG) Urine Nitrite Negative (NEG) Urine Bilirubin Negative (NEG) Urine Urobilinogen Dipstick 1.0 mg/dL (0.2 mg/dL) Urine Leukocyte Esterase Large (NEG) Urine RBC 3-5 /HPF (0-2) Urine WBC 20-40 /HPF (0-4) Urine Squamous Epithelial Cells Mod /LPF Urine Transitional Epithelial Cells Few /LPF Urine Amorphous Sediment Present /HPF Urine Bacteria Many /HPF (0-FEW) Urine Hyaline Casts Moderate /HPF Urine Granular Casts Few /HPF Stool Occult Blood Positive (NEG) White Blood Count 14.6 x10^3/uL (4.0-11.0) 10.2 x10^3/uL (4.0-11.0) Red Blood Count 4.33 x10^6/uL (3.50-5.40) 4.14 x10^6/uL (3.50-5.40) Hemoglobin 14.1 g/dL (12.0-15.5) 13.6 g/dL (12.0-15.5) Hematocrit 41.8 % (36.0-47.0) 40.2 % (36.0-47.0) Mean Corpuscular Volume 97 fL (79-100) 97 fL (79-100) Mean Corpuscular Hemoglobin 33 pg (25-35) 33 pg (25-35) Mean Corpuscular Hemoglobin Concent 34 g/dL (31-37) 34 g/dL (31-37) Red Cell Distribution Width 13.4 % (11.5-14.5) 13.5 % (11.5-14.5) Platelet Count 223 x10^3/uL (140-400) 183 x10^3/uL (140-400) Neutrophils (%) (Auto) 80 % (31-73) Lymphocytes (%) (Auto) 10 % (24-48) Monocytes (%) (Auto) 9 % (0-9) Eosinophils (%) (Auto) 2 % (0-3) Basophils (%) (Auto) 0 % (0-3) Neutrophils # (Auto) 8.1 x10^3/uL (1.8-7.7) Lymphocytes # (Auto) 1.0 x10^3/uL (1.0-4.8) Monocytes # (Auto) 0.9 x10^3/uL (0.0-1.1) Eosinophils # (Auto) 0.2 x10^3/uL (0.0-0.7) Basophils # (Auto) 0.0 x10^3/uL (0.0-0.2) Sodium Level 140 mmol/L (136-145) Potassium Level 3.2 mmol/L (3.5-5.1) Chloride Level 105 mmol/L (98-107) Carbon Dioxide Level 26 mmol/L (21-32) Anion Gap 9 (6-14) Blood Urea Nitrogen 18 mg/dL (7-20) Creatinine 1.2 mg/dL (0.6-1.0) Estimated GFR (Cockcroft-Gault) 43.2 Glucose Level 94 mg/dL (70-99) Calcium Level 8.4 mg/dL (8.5-10.1) Laboratory Tests Test 11/09/19 04:10 White Blood Count 10.2 x10^3/uL (4.0-11.0) Red Blood Count 4.14 x10^6/uL (3.50-5.40) Hemoglobin 13.6 g/dL (12.0-15.5) Hematocrit 40.2 % (36.0-47.0) Mean Corpuscular Volume 97 fL (79-100) Mean Corpuscular Hemoglobin 33 pg (25-35) Mean Corpuscular Hemoglobin Concent 34 g/dL (31-37) Red Cell Distribution Width 13.5 % (11.5-14.5) Platelet Count 183 x10^3/uL (140-400) Neutrophils (%) (Auto) 80 % (31-73) Lymphocytes (%) (Auto) 10 % (24-48) Monocytes (%) (Auto) 9 % (0-9) Eosinophils (%) (Auto) 2 % (0-3) Basophils (%) (Auto) 0 % (0-3) Neutrophils # (Auto) 8.1 x10^3/uL (1.8-7.7) Lymphocytes # (Auto) 1.0 x10^3/uL (1.0-4.8) Monocytes # (Auto) 0.9 x10^3/uL (0.0-1.1) Eosinophils # (Auto) 0.2 x10^3/uL (0.0-0.7) Basophils # (Auto) 0.0 x10^3/uL (0.0-0.2) Sodium Level 140 mmol/L (136-145) Potassium Level 3.2 mmol/L (3.5-5.1) Chloride Level 105 mmol/L (98-107) Carbon Dioxide Level 26 mmol/L (21-32) Anion Gap 9 (6-14) Blood Urea Nitrogen 18 mg/dL (7-20) Creatinine 1.2 mg/dL (0.6-1.0) Estimated GFR (Cockcroft-Gault) 43.2 Glucose Level 94 mg/dL (70-99) Calcium Level 8.4 mg/dL (8.5-10.1) Microbiology 11/08/19 Fecal Leukocyte Stain - Final, Complete 11/07/19 Urine Culture - Preliminary, Resulted Medications Current Medications Fentanyl Citrate (Fentanyl 2ml Vial) 25 mcg 1X ONCE IV Last administered on 11/07/19at 18:27; Start 11/07/19 at 18:15; Stop 11/07/19 at 18:19; Status DC Sodium Chloride 1,000 ml @ 1,000 mls/hr 1X ONCE IV Last administered on 11/07/19at 18:27; Start 11/07/19 at 18:15; Stop 11/07/19 at 19:14; Status DC Ceftriaxone Sodium (Rocephin) 1 gm 1X ONCE IVP Last administered on 11/07/19at 19:42; Start 11/07/19 at 18:45; Stop 11/07/19 at 19:00; Status DC Fentanyl Citrate (Fentanyl 2ml Vial) 25 mcg 1X ONCE IV Last administered on 11/07/19at 19:42; Start 11/07/19 at 19:30; Stop 11/07/19 at 19:33; Status DC Sodium Chloride (Normal Saline Flush) 3 ml QSHIFT PRN IV AFTER MEDS AND BLOOD DRAWS; Start 11/07/19 at 20:30 Sodium Chloride 1,000 ml @ 80 mls/hr [id number] IV Last administered on 11/09/19at 04:16; Start 11/07/19 at 20:28 Ondansetron HCl (Zofran) 4 mg PRN Q4HRS PRN IV NAUSEA/VOMITING; Start 11/07/19 at 20:30 Clonidine HCl (Catapres) 0.1 mg PRN Q6HRS PRN PO SBP>160 OR DBP>90; Start 11/07/19 at 20:30 Albuterol Sulfate (Ventolin Neb Soln) 2.5 mg PRN Q4HRS PRN NEB SHORTNESS OF BREATH; Start 11/07/19 at 20:30 Guaifenesin (Robitussin) 200 mg PRN Q4HRS PRN PO COUGH; Start 11/07/19 at 20:30 Enoxaparin Sodium (Lovenox 40mg Syringe) 40 mg Q24H SQ ; Start 11/07/19 at 20:30; Status UNV Apixaban (Eliquis) 5 mg BID PO Last administered on 11/07/19at 23:26; Start 11/07/19 at 21:00; Stop 11/08/19 at 09:18; Status DC Aspirin (Ecotrin) 81 mg DAILY07 PO ; Start 11/08/19 at 07:00; Stop 11/08/19 at 09:18; Status DC Levothyroxine Sodium (Synthroid) 50 mcg DAILY06 PO Last administered on 11/09/19at 06:11; Start 11/08/19 at 06:00 Lisinopril (Prinivil) 10 mg DAILY PO Last administered on 11/09/19at 09:20; Start 11/08/19 at 09:00 Metoprolol Tartrate (Lopressor) 50 mg BID PO Last administered on 11/09/19at 09:20; Start 11/07/19 at 21:00 Tramadol HCl (Ultram) 50 mg PRN Q6HRS PRN PO MODERATE PAIN 4-6 Last administered on 11/08/19at 21:19; Start 11/07/19 at 20:45 Calcium/Vitamin D (Oscal D 500mg/ 200uts) 1 tab DAILYWBKFT PO ; Start 11/08/19 at 08:00 Multivitamins (Thera M Plus) 1 tab DAILY PO ; Start 11/08/19 at 09:00 Fish Oil (Fish Oil) 1,000 mg DAILY07 PO Last administered on 11/09/19at 06:10; Start 11/08/19 at 07:00 Pantoprazole Sodium (Protonix) 40 mg DAILYAC PO Last administered on 11/09/19at 06:08; Start 11/08/19 at 07:30 Multivit/ Folic Acid/Iron (Multivitamin ) 1 tab DAILY07 PO Last administered on 11/09/19at 06:11; Start 11/08/19 at 07:00 Albuterol/ Ipratropium (Duoneb) 3 ml RTQID NEB Last administered on 11/09/19at 15:52; Start 11/08/19 at 08:00 Budesonide (Pulmicort) 0.5 mg RTBID NEB Last administered on 11/09/19at 07:24; Start 11/08/19 at 08:00 Info (Anti-Coagulation Monitoring By Pharmacy) 1 each PRN DAILY PRN MC SEE COMMENTS Last administered on 11/08/19at 00:40; Start 11/07/19 at 21:00 Hydromorphone HCl (Dilaudid) 0.5 mg PRN Q4HRS PRN IV SEVERE PAIN 7-10 Last administered on 11/07/19at 21:41; Start 11/07/19 at 21:30; Stop 11/08/19 at 21:29; Status DC Ceftriaxone Sodium (Rocephin) 1 gm Q24H IVP Last administered on 11/08/19at 21:17; Start 11/08/19 at 20:00 Active Scripts Active Prednisone (Prednisone) 10 Mg Tablet 10 Mg PO UD Take 4 tablets by mouth daily for 2 days, then take 3 tablets by mouth daily for 2 days, then take 2 tablets by mouth daily for 2 days, then take 1 tablets by mouth daily for 2 days, then stop. Reported Anoro Ellipta 62.5-25 Mcg Inh (Umeclidinium Brm/Vilanterol Tr) 1 Each Disk.w.dev 1 Each IH DAILY Furosemide 20 Mg Tablet 1 Tab PO QODAY Lisinopril 10 Mg Tablet 1 Tab PO DAILY Metoprolol Tartrate 50 Mg Tablet 50 Mg PO BID Eliquis (Apixaban) 5 Mg Tablet 5 Mg PO BID Omeprazole 20 Mg Capsule. 20 Mg PO DAILY07 Tramadol Hcl 50 Mg Tablet 50 Mg PO PRN Q6HRS Extra-Virt Plus Dha Softgel ( #57/Iron/Fa/Dss/Dha) 1 Each Capsule 1 Each PO DAILY07 Levothyroxine Sodium 50 Mcg Tablet 50 Mcg PO DAILY07 Fish Oil ([place]-3 Fatty Acids) 500 Mg Capsule 500 Mg PO DAILY07 Aspir 81 (Aspirin) 81 Mg Tablet. 81 Mg PO DAILY07 Multi Vitamin Daily (Multivitamin) 1 Each Tablet 1 Each PO DAILY07 Calcium 500 + D Tablet (Calcium Carbonate/Vitamin D3) 1 Each Tablet 1 Each PO DAILY07 Triamterene-Hctz 37.5-25 Mg Cp (Triamterene/Hydrochlorothiazid) 1 Each Capsule 1 Each PO DAILY07 Vitals/I & O Vital Sign - Last 24 Hours 11/08/19 11/08/19 11/08/19 11/08/19 19:21 19:51 20:00 21:18 Temp 97.8 97.8 Pulse 89 89 B/P (MAP) 121/58 (79) 121/58 Pulse Ox 95 97 O2 Delivery Room Air Room Air Room Air 11/08/19 11/08/19 11/08/19 11/09/19 21:19 22:19 23:00 03:20 Temp 97.8 98.2 97.8 98.2 Pulse 89 88 Resp 20 20 16 B/P (MAP) 106/48 (67) 120/53 (75) Pulse Ox 97 97 99 98 O2 Delivery Room Air Room Air Room Air Room Air 11/09/19 11/09/19 11/09/19 11/09/19 07:00 07:25 08:00 09:20 Temp 98.1 98.1 Pulse 107 88 Resp 18 B/P (MAP) 119/77 (91) 120/53 Pulse Ox 94 97 O2 Delivery Room Air Room Air Room Air 11/09/19 11/09/19 11/09/19 11/09/19 09:20 11:00 11:40 15:00 Temp 98.0 97.8 98.0 97.8 Pulse 88 83 84 Resp 18 18 B/P (MAP) 120/53 107/59 (75) 110/62 (78) Pulse Ox 97 97 94 O2 Delivery Room Air Room Air Room Air 11/09/19 15:52 O2 Delivery Room Air Intake and Output 11/08/19 11/08/19 11/09/19 15:00 23:00 07:00 Intake Total 0 ml 200 ml Output Total 400 ml Balance 0 ml -200 ml Justicifation of Admission Dx: Justifications for Admission: Justification of Admission Dx: Yes Sepsis: Infection DEMARCUS JAIMES MD Nov 09, 2019 17:48
[2019-11-09 19:00] VITALS: BP 136/77
[2019-11-09] MEDS: cefTRIAXone IV Push 1 GM VIAL. IVP SCH (20:17)
[2019-11-09] MEDS: traMADol 50 MG TABLET PO PRN (21:53)
[2019-11-09 23:00] VITALS: BP 149/81
[2019-11-10 03:00] VITALS: BP 131/73
[2019-11-10 04:54] LABS: BASO % 1 % (0-3); EOS # 0.2 x10^3/uL (0.0-0.7); EOS % 2 % (0-3); HEMATOCRIT 39.1 % (36.0-47.0); HEMOGLOBIN 13.2 g/dL (12.0-15.5); LYMPH # 0.7 x10^3/uL (1.0-4.8); LYMPH % 9 % (24-48); MEAN CORPUSCULAR HEMOGLOBIN 33 pg (25-35); MEAN CORPUSCULAR HGB CONC 34 g/dL (31-37); MEAN CORPUSCULAR VOLUME 97 fL (79-100); MONO % 12 % (0-9); NEUT # 6.4 x10^3/uL (1.8-7.7); NEUT % 76 % (31-73); PLATELET COUNT 182 x10^3/uL (140-400); RED BLOOD COUNT 4.04 x10^6/uL (3.50-5.40); RED CELL DISTRIBUTION WIDTH 13.6 % (11.5-14.5); WHITE BLOOD COUNT 8.4 x10^3/uL (4.0-11.0)
[2019-11-10 05:03] LABS: CALCIUM 8.3 mg/dL (8.5-10.1); GFR 53.3; POTASSIUM 3.1 mmol/L (3.5-5.1)
[2019-11-10] MEDS: LEVOTHYROXINE 50 MCG TABLET PO SCH (06:00)
[2019-11-10] MEDS: IV NORMAL SALINE 1000ML BAG 1,000 ML IV SCH ×2 (06:01→19:26)
[2019-11-10 07:00] VITALS: BP 123/86
[2019-11-10] MEDS: OMEGA-3 FATTY ACIDS/FISH OIL 1,000 MG CAPSULE. PO SCH (07:06)
[2019-11-10] MEDS: CALCIUM CARB/VIT D3 500/200 TABLET. PO SCH (07:09)
[2019-11-10] MEDS: traMADol 50 MG TABLET PO PRN ×2 (07:10→19:25)
[2019-11-10] MEDS: PRENATAL MULTIVITAMIN TABLET. PO SCH (07:10)
[2019-11-10] MEDS: MULTIVITAMIN with MINERAL TABLET. PO SCH (07:13)
[2019-11-10] MEDS: BUDESONIDE 0.5 MG/2 ML NEBU. NEB SCH ×2 (07:23→20:32)
[2019-11-10] MEDS: IPRATRPIUM/ALBUTEROL 0.5/2.5MG 3 ML NEBU. NEB SCH ×4 (07:23→20:32)
[2019-11-10] MEDS: PANTOPRAZOLE 40 MG TABLET.DR. PO SCH (07:52)
[2019-11-10] MEDS: LISINOPRIL 10 MG TABLET PO SCH (07:55)
[2019-11-10] MEDS: METOPROLOL TART IMMED RELEASE 50 MG TABLET. PO SCH ×2 (07:56→21:03)
--- NOTE | 2019-11-10 09:53 | NUR ---
SW following. Discussed with RN, pt feeling better, declining services at discharge. Anticipate discharge home today. SW will continue to follow should any discharge needs arise.
--- NOTE | 2019-11-10 10:28 | EKG ---
[facility] [address] [place] [address] Test Date: 2019-11-07 Test Time: 17:41:03 Pat Name: NGUYỄN DOBBS Department: Room: 418 1 Gender: F [employer] Machine Operator: : [id number] Requested By: NITIN LÓPEZ Order Number: [id number] Reading MD: Measurements Intervals [place] Rate: 85 P: [place]: QRS: 48 QRSD: 90 T: -2 QT: 390 QTc: 470 Interpretive Statements IRREGULAR RHYTHM, NO P-WAVE FOUND VENTRICULAR PREMATURE COMPLEX(ES) ST & T ABNORMALITY, CONSIDER ANTERIOR ISCHEMIA OR LEFT VENTRICULAR STRAIN T ABNORMALITY IN INFERIOR LEADS ABNORMAL ECG RI6.01 No previous ECG available for comparison
[2019-11-10 11:00] VITALS: BP 138/84
[2019-11-10 12:34] LABS: FECAL OB PT POSITIVE (NEG)
--- NOTE | 2019-11-10 13:23 | PDOC ---
PROGRESS NOTES Date of Service: DATE: 11/10/19 TIME: 13:12 Chief Complaint Chief Complaint Nausea, vomiting, bloody diarrhea History of Present Illness History of Present Illness Patient reports resolution of her nausea and vomiting. She is still having liquid stool with small bits of blood. She denies any fever. Vitals Vitals Vital Signs Date Time Temp Pulse Resp B/P (MAP) Pulse Ox O2 Delivery O2 Flow Rate FiO2 11/10/19 11:11 97 Room Air 11/10/19 11:00 98.0 107 18 138/84 (102) 98.0 Physical Exam General: Alert, Oriented X3, Cooperative Heart: Regular rate, Normal S1, Normal S2 Lungs: Wheezing Abdomen: Normal bowel sounds, Soft, No hepatosplenomegaly, Other (Mild LLQ tenderness) Extremities: No clubbing, No cyanosis Skin: No rashes Labs LABS Laboratory Tests Test 11/09/19 23:30 11/10/19 03:30 Stool Occult Blood Positive (NEG) White Blood Count 8.4 x10^3/uL (4.0-11.0) Red Blood Count 4.04 x10^6/uL (3.50-5.40) Hemoglobin 13.2 g/dL (12.0-15.5) Hematocrit 39.1 % (36.0-47.0) Mean Corpuscular Volume 97 fL (79-100) Mean Corpuscular Hemoglobin 33 pg (25-35) Mean Corpuscular Hemoglobin Concent 34 g/dL (31-37) Red Cell Distribution Width 13.6 % (11.5-14.5) Platelet Count 182 x10^3/uL (140-400) Neutrophils (%) (Auto) 76 % (31-73) Lymphocytes (%) (Auto) 9 % (24-48) Monocytes (%) (Auto) 12 % (0-9) Eosinophils (%) (Auto) 2 % (0-3) Basophils (%) (Auto) 1 % (0-3) Neutrophils # (Auto) 6.4 x10^3/uL (1.8-7.7) Lymphocytes # (Auto) 0.7 x10^3/uL (1.0-4.8) Monocytes # (Auto) 1.0 x10^3/uL (0.0-1.1) Eosinophils # (Auto) 0.2 x10^3/uL (0.0-0.7) Basophils # (Auto) 0.0 x10^3/uL (0.0-0.2) Sodium Level 141 mmol/L (136-145) Potassium Level 3.1 mmol/L (3.5-5.1) Chloride Level 107 mmol/L (98-107) Carbon Dioxide Level 28 mmol/L (21-32) Anion Gap 6 (6-14) Blood Urea Nitrogen 11 mg/dL (7-20) Creatinine 1.0 mg/dL (0.6-1.0) Estimated GFR (Cockcroft-Gault) 53.3 Glucose Level 75 mg/dL (70-99) Calcium Level 8.3 mg/dL (8.5-10.1) Review of Systems Review of Systems Diarrhea. No nausea or vomiting. No fever. No dysuria. Assessment and Plan Assessmemt and Plan Problems Medical Problems: (1) Colitis Status: Acute (2) Nausea vomiting and diarrhea Status: Acute (3) UTI (urinary tract infection) Status: Acute Plan: C. diff pending. Comment Review of Relevant I have reviewed the following items aaliyah (where applicable) has been applied. Labs Laboratory Tests Test 11/09/19 04:10 11/09/19 23:30 11/10/19 03:30 White Blood Count 10.2 x10^3/uL (4.0-11.0) 8.4 x10^3/uL (4.0-11.0) Red Blood Count 4.14 x10^6/uL (3.50-5.40) 4.04 x10^6/uL (3.50-5.40) Hemoglobin 13.6 g/dL (12.0-15.5) 13.2 g/dL (12.0-15.5) Hematocrit 40.2 % (36.0-47.0) 39.1 % (36.0-47.0) Mean Corpuscular Volume 97 fL (79-100) 97 fL (79-100) Mean Corpuscular Hemoglobin 33 pg (25-35) 33 pg (25-35) Mean Corpuscular Hemoglobin Concent 34 g/dL (31-37) 34 g/dL (31-37) Red Cell Distribution Width 13.5 % (11.5-14.5) 13.6 % (11.5-14.5) Platelet Count 183 x10^3/uL (140-400) 182 x10^3/uL (140-400) Neutrophils (%) (Auto) 80 % (31-73) 76 % (31-73) Lymphocytes (%) (Auto) 10 % (24-48) 9 % (24-48) Monocytes (%) (Auto) 9 % (0-9) 12 % (0-9) Eosinophils (%) (Auto) 2 % (0-3) 2 % (0-3) Basophils (%) (Auto) 0 % (0-3) 1 % (0-3) Neutrophils # (Auto) 8.1 x10^3/uL (1.8-7.7) 6.4 x10^3/uL (1.8-7.7) Lymphocytes # (Auto) 1.0 x10^3/uL (1.0-4.8) 0.7 x10^3/uL (1.0-4.8) Monocytes # (Auto) 0.9 x10^3/uL (0.0-1.1) 1.0 x10^3/uL (0.0-1.1) Eosinophils # (Auto) 0.2 x10^3/uL (0.0-0.7) 0.2 x10^3/uL (0.0-0.7) Basophils # (Auto) 0.0 x10^3/uL (0.0-0.2) 0.0 x10^3/uL (0.0-0.2) Sodium Level 140 mmol/L (136-145) 141 mmol/L (136-145) Potassium Level 3.2 mmol/L (3.5-5.1) 3.1 mmol/L (3.5-5.1) Chloride Level 105 mmol/L (98-107) 107 mmol/L (98-107) Carbon Dioxide Level 26 mmol/L (21-32) 28 mmol/L (21-32) Anion Gap 9 (6-14) 6 (6-14) Blood Urea Nitrogen 18 mg/dL (7-20) 11 mg/dL (7-20) Creatinine 1.2 mg/dL (0.6-1.0) 1.0 mg/dL (0.6-1.0) Estimated GFR (Cockcroft-Gault) 43.2 53.3 Glucose Level 94 mg/dL (70-99) 75 mg/dL (70-99) Calcium Level 8.4 mg/dL (8.5-10.1) 8.3 mg/dL (8.5-10.1) Stool Occult Blood Positive (NEG) Laboratory Tests Test 11/09/19 23:30 11/10/19 03:30 Stool Occult Blood Positive (NEG) White Blood Count 8.4 x10^3/uL (4.0-11.0) Red Blood Count 4.04 x10^6/uL (3.50-5.40) Hemoglobin 13.2 g/dL (12.0-15.5) Hematocrit 39.1 % (36.0-47.0) Mean Corpuscular Volume 97 fL (79-100) Mean Corpuscular Hemoglobin 33 pg (25-35) Mean Corpuscular Hemoglobin Concent 34 g/dL (31-37) Red Cell Distribution Width 13.6 % (11.5-14.5) Platelet Count 182 x10^3/uL (140-400) Neutrophils (%) (Auto) 76 % (31-73) Lymphocytes (%) (Auto) 9 % (24-48) Monocytes (%) (Auto) 12 % (0-9) Eosinophils (%) (Auto) 2 % (0-3) Basophils (%) (Auto) 1 % (0-3) Neutrophils # (Auto) 6.4 x10^3/uL (1.8-7.7) Lymphocytes # (Auto) 0.7 x10^3/uL (1.0-4.8) Monocytes # (Auto) 1.0 x10^3/uL (0.0-1.1) Eosinophils # (Auto) 0.2 x10^3/uL (0.0-0.7) Basophils # (Auto) 0.0 x10^3/uL (0.0-0.2) Sodium Level 141 mmol/L (136-145) Potassium Level 3.1 mmol/L (3.5-5.1) Chloride Level 107 mmol/L (98-107) Carbon Dioxide Level 28 mmol/L (21-32) Anion Gap 6 (6-14) Blood Urea Nitrogen 11 mg/dL (7-20) Creatinine 1.0 mg/dL (0.6-1.0) Estimated GFR (Cockcroft-Gault) 53.3 Glucose Level 75 mg/dL (70-99) Calcium Level 8.3 mg/dL (8.5-10.1) Microbiology 11/08/19 Fecal Leukocyte Stain - Final, Complete 11/07/19 Urine Culture - Preliminary, Resulted 11/07/19 Antimicrobic Susceptibility - Preliminary, Resulted Medications Current Medications Fentanyl Citrate (Fentanyl 2ml Vial) 25 mcg 1X ONCE IV Last administered on 11/07/19at 18:27; Start 11/07/19 at 18:15; Stop 11/07/19 at 18:19; Status DC Sodium Chloride 1,000 ml @ 1,000 mls/hr 1X ONCE IV Last administered on 11/07/19at 18:27; Start 11/07/19 at 18:15; Stop 11/07/19 at 19:14; Status DC Ceftriaxone Sodium (Rocephin) 1 gm 1X ONCE IVP Last administered on 11/07/19at 19:42; Start 11/07/19 at 18:45; Stop 11/07/19 at 19:00; Status DC Fentanyl Citrate (Fentanyl 2ml Vial) 25 mcg 1X ONCE IV Last administered on 11/07/19at 19:42; Start 11/07/19 at 19:30; Stop 11/07/19 at 19:33; Status DC Sodium Chloride (Normal Saline Flush) 3 ml QSHIFT PRN IV AFTER MEDS AND BLOOD DRAWS; Start 11/07/19 at 20:30 Sodium Chloride 1,000 ml @ 80 mls/hr [id number] IV Last administered on 11/10/19at 06:01; Start 11/07/19 at 20:28 Ondansetron HCl (Zofran) 4 mg PRN Q4HRS PRN IV NAUSEA/VOMITING; Start 11/07/19 at 20:30 Clonidine HCl (Catapres) 0.1 mg PRN Q6HRS PRN PO SBP>160 OR DBP>90; Start 11/07/19 at 20:30 Albuterol Sulfate (Ventolin Neb Soln) 2.5 mg PRN Q4HRS PRN NEB SHORTNESS OF BREATH; Start 11/07/19 at 20:30 Guaifenesin (Robitussin) 200 mg PRN Q4HRS PRN PO COUGH; Start 11/07/19 at 20:30 Enoxaparin Sodium (Lovenox 40mg Syringe) 40 mg Q24H SQ ; Start 11/07/19 at 20:30; Status UNV Apixaban (Eliquis) 5 mg BID PO Last administered on 11/07/19at 23:26; Start 11/07/19 at 21:00; Stop 11/08/19 at 09:18; Status DC Aspirin (Ecotrin) 81 mg DAILY07 PO ; Start 11/08/19 at 07:00; Stop 11/08/19 at 09:18; Status DC Levothyroxine Sodium (Synthroid) 50 mcg DAILY06 PO Last administered on 11/10/19at 06:00; Start 11/08/19 at 06:00 Lisinopril (Prinivil) 10 mg DAILY PO Last administered on 11/10/19at 07:55; Start 11/08/19 at 09:00 Metoprolol Tartrate (Lopressor) 50 mg BID PO Last administered on 11/10/19at 07:56; Start 11/07/19 at 21:00 Tramadol HCl (Ultram) 50 mg PRN Q6HRS PRN PO MODERATE PAIN 4-6 Last administered on 11/10/19at 07:10; Start 11/07/19 at 20:45 Calcium/Vitamin D (Oscal D 500mg/ 200uts) 1 tab DAILYWBKFT PO ; Start 11/08/19 at 08:00 Multivitamins (Thera M Plus) 1 tab DAILY PO ; Start 11/08/19 at 09:00 Fish Oil (Fish Oil) 1,000 mg DAILY07 PO Last administered on 11/10/19at 07:06; Start 11/08/19 at 07:00 Pantoprazole Sodium (Protonix) 40 mg DAILYAC PO Last administered on 11/10/19at 07:52; Start 11/08/19 at 07:30 Multivit/ Folic Acid/Iron (Multivitamin ) 1 tab DAILY07 PO Last administered on 11/10/19at 07:10; Start 11/08/19 at 07:00 Albuterol/ Ipratropium (Duoneb) 3 ml RTQID NEB Last administered on 11/10/19at 11:09; Start 11/08/19 at 08:00 Budesonide (Pulmicort) 0.5 mg RTBID NEB Last administered on 11/10/19at 07:23; Start 11/08/19 at 08:00 Info (Anti-Coagulation Monitoring By Pharmacy) 1 each PRN DAILY PRN MC SEE COMMENTS Last administered on 11/08/19at 00:40; Start 11/07/19 at 21:00 Hydromorphone HCl (Dilaudid) 0.5 mg PRN Q4HRS PRN IV SEVERE PAIN 7-10 Last administered on 11/07/19at 21:41; Start 11/07/19 at 21:30; Stop 11/08/19 at 21:29; Status DC Ceftriaxone Sodium (Rocephin) 1 gm Q24H IVP Last administered on 11/09/19at 20:17; Start 11/08/19 at 20:00 Active Scripts Active Prednisone (Prednisone) 10 Mg Tablet 10 Mg PO UD Take 4 tablets by mouth daily for 2 days, then take 3 tablets by mouth daily for 2 days, then take 2 tablets by mouth daily for 2 days, then take 1 tablets by mouth daily for 2 days, then stop. Reported Anoro Ellipta 62.5-25 Mcg Inh (Umeclidinium Brm/Vilanterol Tr) 1 Each Disk.w.dev 1 Each IH DAILY Furosemide 20 Mg Tablet 1 Tab PO QODAY Lisinopril 10 Mg Tablet 1 Tab PO DAILY Metoprolol Tartrate 50 Mg Tablet 50 Mg PO BID Eliquis (Apixaban) 5 Mg Tablet 5 Mg PO BID Omeprazole 20 Mg Capsule. 20 Mg PO DAILY07 Tramadol Hcl 50 Mg Tablet 50 Mg PO PRN Q6HRS Extra-Virt Plus Dha Softgel ( #57/Iron/Fa/Dss/Dha) 1 Each Capsule 1 Each PO DAILY07 Levothyroxine Sodium 50 Mcg Tablet 50 Mcg PO DAILY07 Fish Oil ([place]-3 Fatty Acids) 500 Mg Capsule 500 Mg PO DAILY07 Aspir 81 (Aspirin) 81 Mg Tablet. 81 Mg PO DAILY07 Multi Vitamin Daily (Multivitamin) 1 Each Tablet 1 Each PO DAILY07 Calcium 500 + D Tablet (Calcium Carbonate/Vitamin D3) 1 Each Tablet 1 Each PO DAILY07 Triamterene-Hctz 37.5-25 Mg Cp (Triamterene/Hydrochlorothiazid) 1 Each Capsule 1 Each PO DAILY07 Vitals/I & O Vital Sign - Last 24 Hours 11/09/19 11/09/19 11/09/19 11/09/19 15:00 15:52 19:00 19:45 Temp 97.8 98.0 97.8 98.0 Pulse 84 89 Resp 18 18 B/P (MAP) 110/62 (78) 136/77 (96) Pulse Ox 94 94 O2 Delivery Room Air Room Air Room Air Room Air 11/09/19 11/09/19 11/10/19 11/10/19 21:09 23:00 03:00 07:00 Temp 98.2 98.2 98.1 98.2 98.2 98.1 Pulse 89 83 95 95 Resp 18 18 18 B/P (MAP) 136/77 149/81 (103) 131/73 (92) 123/86 (98) Pulse Ox 93 94 90 O2 Delivery Room Air Room Air Room Air 11/10/19 11/10/19 11/10/19 11/10/19 07:30 07:31 07:55 07:56 Pulse 95 95 B/P (MAP) 123/86 123/86 Pulse Ox 97 97 O2 Delivery Room Air Room Air 11/10/19 11/10/19 11/10/19 11/10/19 08:00 08:10 11:00 11:11 Temp 98.0 98.0 Pulse 107 Resp 18 B/P (MAP) 138/84 (102) Pulse Ox 97 97 O2 Delivery Room Air Room Air Room Air Room Air Intake and Output 11/09/19 11/09/19 11/10/19 15:00 23:00 07:00 Intake Total 480 ml 680 ml 600 ml Output Total 300 ml Balance 480 ml 680 ml 300 ml Justicifation of Admission Dx: Justifications for Admission: Justification of Admission Dx: Yes Sepsis: Infection DEMARCUS JAIMES MD Nov 10, 2019 13:23
[2019-11-10] MEDS ORDERED: POTASSIUM CHLORIDE 10 MEQ TABLET.ER. PO ONE (13:30)
--- NOTE | 2019-11-10 13:34 | PDOC ---
Date of Service: DATE: 11/10/19 TIME: 13:22 Subjective: Subjective: Upper abdominal soreness under ribs after eating. Still has diarrhea - less than before. Objective: Vital Signs: Vital Signs Date Time Temp Pulse Resp B/P (MAP) Pulse Ox O2 Delivery O2 Flow Rate FiO2 11/10/19 11:11 97 Room Air 11/10/19 11:00 98.0 107 18 138/84 (102) 98.0 Labs: Laboratory Tests Test 11/09/19 23:30 11/10/19 03:30 Stool Occult Blood Positive White Blood Count 8.4 x10^3/uL Red Blood Count 4.04 x10^6/uL Hemoglobin 13.2 g/dL Hematocrit 39.1 % Mean Corpuscular Volume 97 fL Mean Corpuscular Hemoglobin 33 pg Mean Corpuscular Hemoglobin Concent 34 g/dL Red Cell Distribution Width 13.6 % Platelet Count 182 x10^3/uL Neutrophils (%) (Auto) 76 % Lymphocytes (%) (Auto) 9 % Monocytes (%) (Auto) 12 % Eosinophils (%) (Auto) 2 % Basophils (%) (Auto) 1 % Neutrophils # (Auto) 6.4 x10^3/uL Lymphocytes # (Auto) 0.7 x10^3/uL Monocytes # (Auto) 1.0 x10^3/uL Eosinophils # (Auto) 0.2 x10^3/uL Basophils # (Auto) 0.0 x10^3/uL Sodium Level 141 mmol/L Potassium Level 3.1 mmol/L Chloride Level 107 mmol/L Carbon Dioxide Level 28 mmol/L Anion Gap 6 Blood Urea Nitrogen 11 mg/dL Creatinine 1.0 mg/dL Estimated GFR (Cockcroft-Gault) 53.3 Glucose Level 75 mg/dL Calcium Level 8.3 mg/dL FECAL WBC,GRAM STAIN Final WBCS MANY COMMENTS MANY RED BLOOD CELLS PE: GEN: NAD LUNGS: CTAB HEART: RRR ABD: mildly tender epigastrium, under ribs bilaterally NEURO/PSYCH: A & O 3 - more alert today A/P: Diarrhea - better - ?colitis on CT Upper abd discomfort +Hemoccult - colonoscopy up to date (2013), Hgb WNL, no obvious bleeding H/o GERD, s/p jovita UTI, hypokalemia -- Advance diet. Continue PPI for h/o GERD. Await stool tests. D/w Dr. Sprague. Justicifation of Admission Dx: Justifications for Admission: Justification of Admission Dx: Yes Sepsis: Infection NELLY ROSALES Nov 10, 2019 13:34
[2019-11-10 15:00] VITALS: BP 142/82
[2019-11-10 19:00] VITALS: BP 136/77
[2019-11-10] MEDS: cefTRIAXone IV Push 1 GM VIAL. IVP SCH (21:02)
[2019-11-10 23:00] VITALS: BP 145/93
[2019-11-11 03:00] VITALS: BP 136/84
[2019-11-11] MEDS: LEVOTHYROXINE 50 MCG TABLET PO SCH (06:12)
[2019-11-11 07:00] VITALS: BP 167/94
[2019-11-11] MEDS: PRENATAL MULTIVITAMIN TABLET. PO SCH (07:04)
[2019-11-11] MEDS: OMEGA-3 FATTY ACIDS/FISH OIL 1,000 MG CAPSULE. PO SCH ×2 (07:04→08:59)
[2019-11-11] MEDS: IV NORMAL SALINE 1000ML BAG 1,000 ML IV SCH ×2 (07:06→20:12)
[2019-11-11] MEDS: traMADol 50 MG TABLET PO PRN ×3 (07:10→22:17)
[2019-11-11] MEDS: IPRATRPIUM/ALBUTEROL 0.5/2.5MG 3 ML NEBU. NEB SCH ×4 (07:18→20:02)
[2019-11-11] MEDS: BUDESONIDE 0.5 MG/2 ML NEBU. NEB SCH ×2 (07:18→20:02)
[2019-11-11 07:35] LABS: BASO # 0.1 x10^3/uL (0.0-0.2); BASO % 1 % (0-3); EOS # 0.2 x10^3/uL (0.0-0.7); EOS % 3 % (0-3); HEMATOCRIT 37.8 % (36.0-47.0); HEMOGLOBIN 12.8 g/dL (12.0-15.5); LYMPH # 0.7 x10^3/uL (1.0-4.8); LYMPH % 9 % (24-48); MEAN CORPUSCULAR HEMOGLOBIN 33 pg (25-35); MEAN CORPUSCULAR HGB CONC 34 g/dL (31-37); MEAN CORPUSCULAR VOLUME 96 fL (79-100); MONO % 14 % (0-9); NEUT # 5.2 x10^3/uL (1.8-7.7); NEUT % 74 % (31-73); PLATELET COUNT 173 x10^3/uL (140-400); RED BLOOD COUNT 3.93 x10^6/uL (3.50-5.40); RED CELL DISTRIBUTION WIDTH 13.4 % (11.5-14.5); WHITE BLOOD COUNT 7.1 x10^3/uL (4.0-11.0)
[2019-11-11 08:11] LABS: CALCIUM 8.8 mg/dL (8.5-10.1); CREATININE 0.9 mg/dL (0.6-1.0); GFR 60.2; POTASSIUM 3.5 mmol/L (3.5-5.1)
[2019-11-11] MEDS: LISINOPRIL 10 MG TABLET PO SCH (08:58)
[2019-11-11] MEDS: PANTOPRAZOLE 40 MG TABLET.DR. PO SCH (08:58)
[2019-11-11] MEDS: MULTIVITAMIN with MINERAL TABLET. PO SCH (08:59)
[2019-11-11] MEDS: METOPROLOL TART IMMED RELEASE 50 MG TABLET. PO SCH ×2 (08:59→22:16)
[2019-11-11] MEDS: CALCIUM CARB/VIT D3 500/200 TABLET. PO SCH (08:59)
--- NOTE | 2019-11-11 09:37 | PDOC ---
Date of Service: DATE: 11/11/19 TIME: 09:33 Subjective: Subjective: Feeling better GI-diaz - tolerating diet, abd discomfort less, no stools since yesterday afternoon. Would like to go home but feels weaker than normal. Not sure she would pursue 'scopes as outpt - wants to wait and continue to monitor symptoms. Objective: Vital Signs: Vital Signs Date Time Temp Pulse Resp B/P (MAP) Pulse Ox O2 Delivery O2 Flow Rate FiO2 11/11/19 09:00 Room Air 11/11/19 08:59 84 167/94 11/11/19 07:18 96 11/11/19 07:10 20 11/11/19 07:00 97.6 97.6 Labs: Laboratory Tests Test 11/11/19 03:15 White Blood Count 7.1 x10^3/uL Red Blood Count 3.93 x10^6/uL Hemoglobin 12.8 g/dL Hematocrit 37.8 % Mean Corpuscular Volume 96 fL Mean Corpuscular Hemoglobin 33 pg Mean Corpuscular Hemoglobin Concent 34 g/dL Red Cell Distribution Width 13.4 % Platelet Count 173 x10^3/uL Neutrophils (%) (Auto) 74 % Lymphocytes (%) (Auto) 9 % Monocytes (%) (Auto) 14 % Eosinophils (%) (Auto) 3 % Basophils (%) (Auto) 1 % Neutrophils # (Auto) 5.2 x10^3/uL Lymphocytes # (Auto) 0.7 x10^3/uL Monocytes # (Auto) 1.0 x10^3/uL Eosinophils # (Auto) 0.2 x10^3/uL Basophils # (Auto) 0.1 x10^3/uL Sodium Level 142 mmol/L Potassium Level 3.5 mmol/L Chloride Level 107 mmol/L Carbon Dioxide Level 25 mmol/L Anion Gap 10 Blood Urea Nitrogen 10 mg/dL Creatinine 0.9 mg/dL Estimated GFR (Cockcroft-Gault) 60.2 Glucose Level 83 mg/dL Calcium Level 8.8 mg/dL PE: GEN: NAD - looks better today LUNGS: CTAB HEART: RRR ABD: NABS, S/ND/NT NEURO/PSYCH: A & O 3 A/P: Diarrhea - better - C Diff negative +Hemoccult - colonoscopy up to date (2013), Hgb WNL, no obvious bleeding UTI -- She'd like a therapy eval - defer to primary. DC soon okay per GI - she will follow-up PRN. Justicifation of Admission Dx: Justifications for Admission: Justification of Admission Dx: Yes Sepsis: Infection NELLY ROSALES Nov 11, 2019 09:37
--- NOTE | 2019-11-11 10:33 | NUR ---
MICHEAL following. Discussed with RNIvanna negative. No SW needs. Anticipate possible discharge home today. Addendum: 11/11/19 at [address] Sprague contacted MICHEAL to advise he would like therapy to work with pt as pt reporting she is weak today and interested in going to SNU. MICHEAL spoke with therapy department, they will see pt today stat. MICHEAL will continue to follow. Addendum: 11/11/19 at 1507 by BRUNA BURTON Therapy recommending SNU, pt needs a COVID-19 swab prior to discharge to SNU. MICHEAL to meet with pt to determine which SNU she would like to go to. RN notified of need for COVID swab.
[2019-11-11 11:00] VITALS: BP 145/90
--- NOTE | 2019-11-11 11:27 | NUR ---
Dr. Sprague in to see pt. Notified of pt's son's concerns re: c/o headaches. Verbal order for Judyl received.
[2019-11-11] MEDS ORDERED: diphenhydrAMINE 50 MG/ML VIAL IVP PRN (11:30)
[2019-11-11 15:00] VITALS: BP 132/68
--- NOTE | 2019-11-11 15:49 | NUR ---
Covid swab collected and walked down to lab.
[2019-11-11 19:00] VITALS: BP_SYST 153; BP_SYST 166; BP_DIAS 80; BP_DIAS 82
--- NOTE | 2019-11-11 19:02 | PDOC ---
PROGRESS NOTES Date of Service: DATE: 11/11/19 TIME: 19:02 Chief Complaint Chief Complaint Nausea, vomiting, bloody diarrhea History of Present Illness History of Present Illness Patient reports resolution of her nausea and vomiting. She is still having liquid stool with small bits of blood. She denies any fever. Vitals Vitals Vital Signs Date Time Temp Pulse Resp B/P (MAP) Pulse Ox O2 Delivery O2 Flow Rate FiO2 11/11/19 18:09 Room Air 11/11/19 15:41 97 11/11/19 15:00 97.9 90 18 132/68 (89) 97.9 Physical Exam General: Alert, Oriented X3, Cooperative Heart: Regular rate, Normal S1, Normal S2 Lungs: Wheezing Abdomen: Normal bowel sounds, Soft, No hepatosplenomegaly, Other (Mild LLQ tenderness) Extremities: No clubbing, No cyanosis Skin: No rashes Labs LABS Laboratory Tests Test 11/11/19 03:15 White Blood Count 7.1 x10^3/uL (4.0-11.0) Red Blood Count 3.93 x10^6/uL (3.50-5.40) Hemoglobin 12.8 g/dL (12.0-15.5) Hematocrit 37.8 % (36.0-47.0) Mean Corpuscular Volume 96 fL (79-100) Mean Corpuscular Hemoglobin 33 pg (25-35) Mean Corpuscular Hemoglobin Concent 34 g/dL (31-37) Red Cell Distribution Width 13.4 % (11.5-14.5) Platelet Count 173 x10^3/uL (140-400) Neutrophils (%) (Auto) 74 % (31-73) Lymphocytes (%) (Auto) 9 % (24-48) Monocytes (%) (Auto) 14 % (0-9) Eosinophils (%) (Auto) 3 % (0-3) Basophils (%) (Auto) 1 % (0-3) Neutrophils # (Auto) 5.2 x10^3/uL (1.8-7.7) Lymphocytes # (Auto) 0.7 x10^3/uL (1.0-4.8) Monocytes # (Auto) 1.0 x10^3/uL (0.0-1.1) Eosinophils # (Auto) 0.2 x10^3/uL (0.0-0.7) Basophils # (Auto) 0.1 x10^3/uL (0.0-0.2) Sodium Level 142 mmol/L (136-145) Potassium Level 3.5 mmol/L (3.5-5.1) Chloride Level 107 mmol/L (98-107) Carbon Dioxide Level 25 mmol/L (21-32) Anion Gap 10 (6-14) Blood Urea Nitrogen 10 mg/dL (7-20) Creatinine 0.9 mg/dL (0.6-1.0) Estimated GFR (Cockcroft-Gault) 60.2 Glucose Level 83 mg/dL (70-99) Calcium Level 8.8 mg/dL (8.5-10.1) Assessment and Plan Assessmemt and Plan Problems Medical Problems: (1) Colitis Status: Acute (2) Nausea vomiting and diarrhea Status: Acute (3) UTI (urinary tract infection) Status: Acute Comment Review of Relevant I have reviewed the following items aaliyah (where applicable) has been applied. Labs Laboratory Tests Test 11/09/19 23:30 11/10/19 03:30 11/11/19 03:15 Stool Occult Blood Positive (NEG) Stool Campylobacter PCR Negative (NEGATIVE) Stool E. coli Shiga Toxins (PCR) Negative (NEGATIVE) Stool Salmonella PCR Negative (NEGATIVE) Stool Shigella PCR Negative (NEGATIVE) Clostridium difficile Toxin (PCR) Negative (NEGATIVE) White Blood Count 8.4 x10^3/uL (4.0-11.0) 7.1 x10^3/uL (4.0-11.0) Red Blood Count 4.04 x10^6/uL (3.50-5.40) 3.93 x10^6/uL (3.50-5.40) Hemoglobin 13.2 g/dL (12.0-15.5) 12.8 g/dL (12.0-15.5) Hematocrit 39.1 % (36.0-47.0) 37.8 % (36.0-47.0) Mean Corpuscular Volume 97 fL (79-100) 96 fL (79-100) Mean Corpuscular Hemoglobin 33 pg (25-35) 33 pg (25-35) Mean Corpuscular Hemoglobin Concent 34 g/dL (31-37) 34 g/dL (31-37) Red Cell Distribution Width 13.6 % (11.5-14.5) 13.4 % (11.5-14.5) Platelet Count 182 x10^3/uL (140-400) 173 x10^3/uL (140-400) Neutrophils (%) (Auto) 76 % (31-73) 74 % (31-73) Lymphocytes (%) (Auto) 9 % (24-48) 9 % (24-48) Monocytes (%) (Auto) 12 % (0-9) 14 % (0-9) Eosinophils (%) (Auto) 2 % (0-3) 3 % (0-3) Basophils (%) (Auto) 1 % (0-3) 1 % (0-3) Neutrophils # (Auto) 6.4 x10^3/uL (1.8-7.7) 5.2 x10^3/uL (1.8-7.7) Lymphocytes # (Auto) 0.7 x10^3/uL (1.0-4.8) 0.7 x10^3/uL (1.0-4.8) Monocytes # (Auto) 1.0 x10^3/uL (0.0-1.1) 1.0 x10^3/uL (0.0-1.1) Eosinophils # (Auto) 0.2 x10^3/uL (0.0-0.7) 0.2 x10^3/uL (0.0-0.7) Basophils # (Auto) 0.0 x10^3/uL (0.0-0.2) 0.1 x10^3/uL (0.0-0.2) Sodium Level 141 mmol/L (136-145) 142 mmol/L (136-145) Potassium Level 3.1 mmol/L (3.5-5.1) 3.5 mmol/L (3.5-5.1) Chloride Level 107 mmol/L (98-107) 107 mmol/L (98-107) Carbon Dioxide Level 28 mmol/L (21-32) 25 mmol/L (21-32) Anion Gap 6 (6-14) 10 (6-14) Blood Urea Nitrogen 11 mg/dL (7-20) 10 mg/dL (7-20) Creatinine 1.0 mg/dL (0.6-1.0) 0.9 mg/dL (0.6-1.0) Estimated GFR (Cockcroft-Gault) 53.3 60.2 Glucose Level 75 mg/dL (70-99) 83 mg/dL (70-99) Calcium Level 8.3 mg/dL (8.5-10.1) 8.8 mg/dL (8.5-10.1) Laboratory Tests Test 11/11/19 03:15 White Blood Count 7.1 x10^3/uL (4.0-11.0) Red Blood Count 3.93 x10^6/uL (3.50-5.40) Hemoglobin 12.8 g/dL (12.0-15.5) Hematocrit 37.8 % (36.0-47.0) Mean Corpuscular Volume 96 fL (79-100) Mean Corpuscular Hemoglobin 33 pg (25-35) Mean Corpuscular Hemoglobin Concent 34 g/dL (31-37) Red Cell Distribution Width 13.4 % (11.5-14.5) Platelet Count 173 x10^3/uL (140-400) Neutrophils (%) (Auto) 74 % (31-73) Lymphocytes (%) (Auto) 9 % (24-48) Monocytes (%) (Auto) 14 % (0-9) Eosinophils (%) (Auto) 3 % (0-3) Basophils (%) (Auto) 1 % (0-3) Neutrophils # (Auto) 5.2 x10^3/uL (1.8-7.7) Lymphocytes # (Auto) 0.7 x10^3/uL (1.0-4.8) Monocytes # (Auto) 1.0 x10^3/uL (0.0-1.1) Eosinophils # (Auto) 0.2 x10^3/uL (0.0-0.7) Basophils # (Auto) 0.1 x10^3/uL (0.0-0.2) Sodium Level 142 mmol/L (136-145) Potassium Level 3.5 mmol/L (3.5-5.1) Chloride Level 107 mmol/L (98-107) Carbon Dioxide Level 25 mmol/L (21-32) Anion Gap 10 (6-14) Blood Urea Nitrogen 10 mg/dL (7-20) Creatinine 0.9 mg/dL (0.6-1.0) Estimated GFR (Cockcroft-Gault) 60.2 Glucose Level 83 mg/dL (70-99) Calcium Level 8.8 mg/dL (8.5-10.1) Microbiology 11/08/19 Fecal Leukocyte Stain - Final, Complete 11/07/19 Urine Culture - Final, Complete 11/07/19 Antimicrobic Susceptibility - Final, Complete Medications Current Medications Fentanyl Citrate (Fentanyl 2ml Vial) 25 mcg 1X ONCE IV Last administered on 11/07/19at 18:27; Start 11/07/19 at 18:15; Stop 11/07/19 at 18:19; Status DC Sodium Chloride 1,000 ml @ 1,000 mls/hr 1X ONCE IV Last administered on 11/07/19at 18:27; Start 11/07/19 at 18:15; Stop 11/07/19 at 19:14; Status DC Ceftriaxone Sodium (Rocephin) 1 gm 1X ONCE IVP Last administered on 11/07/19at 19:42; Start 11/07/19 at 18:45; Stop 11/07/19 at 19:00; Status DC Fentanyl Citrate (Fentanyl 2ml Vial) 25 mcg 1X ONCE IV Last administered on 11/07/19at 19:42; Start 11/07/19 at 19:30; Stop 11/07/19 at 19:33; Status DC Sodium Chloride (Normal Saline Flush) 3 ml QSHIFT PRN IV AFTER MEDS AND BLOOD DRAWS; Start 11/07/19 at 20:30 Sodium Chloride 1,000 ml @ 80 mls/hr [id number] IV Last administered on 11/11/19at 07:06; Start 11/07/19 at 20:28 Ondansetron HCl (Zofran) 4 mg PRN Q4HRS PRN IV NAUSEA/VOMITING; Start 11/07/19 at 20:30 Clonidine HCl (Catapres) 0.1 mg PRN Q6HRS PRN PO SBP>160 OR DBP>90; Start 11/07/19 at 20:30 Albuterol Sulfate (Ventolin Neb Soln) 2.5 mg PRN Q4HRS PRN NEB SHORTNESS OF BREATH; Start 11/07/19 at 20:30 Guaifenesin (Robitussin) 200 mg PRN Q4HRS PRN PO COUGH; Start 11/07/19 at 20:30 Enoxaparin Sodium (Lovenox 40mg Syringe) 40 mg Q24H SQ ; Start 11/07/19 at 20:30; Status UNV Apixaban (Eliquis) 5 mg BID PO Last administered on 11/07/19at 23:26; Start 11/07/19 at 21:00; Stop 11/08/19 at 09:18; Status DC Aspirin (Ecotrin) 81 mg DAILY07 PO ; Start 11/08/19 at 07:00; Stop 11/08/19 at 09:18; Status DC Levothyroxine Sodium (Synthroid) 50 mcg DAILY06 PO Last administered on 11/11/19at 06:12; Start 11/08/19 at 06:00 Lisinopril (Prinivil) 10 mg DAILY PO Last administered on 11/11/19at 08:58; Sta rt 11/08/19 at 09:00 Metoprolol Tartrate (Lopressor) 50 mg BID PO Last administered on 11/11/19at 08:59; Start 11/07/19 at 21:00 Tramadol HCl (Ultram) 50 mg PRN Q6HRS PRN PO MODERATE PAIN 4-6 Last administered on 11/11/19at 16:17; Start 11/07/19 at 20:45 Calcium/Vitamin D (Oscal D 500mg/ 200uts) 1 tab [id number] PO Last administered on 11/11/19at 08:59; Start 11/08/19 at 08:00 Multivitamins (Thera M Plus) 1 tab DAILY PO Last administered on 11/11/19at 08:59; Start 11/08/19 at 09:00 Fish Oil (Fish Oil) 1,000 mg DAILY07 PO Last administered on 11/11/19at 08:59; Start 11/08/19 at 07:00 Pantoprazole Sodium (Protonix) 40 mg DAILYAC PO Last administered on 11/11/19at 08:58; Start 11/08/19 at 07:30 Multivit/ Folic Acid/Iron (Multivitamin ) 1 tab DAILY07 PO Last administered on 11/11/19at 07:04; Start 11/08/19 at 07:00 Albuterol/ Ipratropium (Duoneb) 3 ml RTQID NEB Last administered on 11/11/19at 15:40; Start 11/08/19 at 08:00 Budesonide (Pulmicort) 0.5 mg RTBID NEB Last administered on 11/11/19at 07:18; Start 11/08/19 at 08:00 Info (Anti-Coagulation Monitoring By Pharmacy) 1 each PRN DAILY PRN MC SEE COMMENTS Last administered on 11/08/19at 00:40; Start 11/07/19 at 21:00 Hydromorphone HCl (Dilaudid) 0.5 mg PRN Q4HRS PRN IV SEVERE PAIN 7-10 Last administered on 11/07/19at 21:41; Start 11/07/19 at 21:30; Stop 11/08/19 at 21:29; Status DC Ceftriaxone Sodium (Rocephin) 1 gm Q24H IVP Last administered on 11/10/19at 21:02; Start 11/08/19 at 20:00 Potassium Chloride (Klor-Con) 10 meq 1X ONCE PO Last administered on 11/10/19at 15:09; Start 11/10/19 at 13:30; Stop 11/10/19 at 13:34; Status DC Lactobacillus Rhamnosus (Culturelle) 1 cap BID PO ; Start 11/11/19 at 21:00 Diphenhydramine HCl (Benadryl) 25 mg PRN Q6HRS PRN IVP ITCHING; Start 11/11/19 at 11:30 Active Scripts Active Prednisone (Prednisone) 10 Mg Tablet 10 Mg PO UD Take 4 tablets by mouth daily for 2 days, then take 3 tablets by mouth daily for 2 days, then take 2 tablets by mouth daily for 2 days, then take 1 tablets by mouth daily for 2 days, then stop. Reported Anoro Ellipta 62.5-25 Mcg Inh (Umeclidinium Brm/Vilanterol Tr) 1 Each Disk.w.dev 1 Each IH DAILY Furosemide 20 Mg Tablet 1 Tab PO QODAY Lisinopril 10 Mg Tablet 1 Tab PO DAILY Metoprolol Tartrate 50 Mg Tablet 50 Mg PO BID Eliquis (Apixaban) 5 Mg Tablet 5 Mg PO BID Omeprazole 20 Mg Capsule.dr 20 Mg PO DAILY07 Tramadol Hcl 50 Mg Tablet 50 Mg PO PRN Q6HRS Extra-Virt Plus Dha Softgel ( #57/Iron/Fa/Dss/Dha) 1 Each Capsule 1 Each PO DAILY07 Levothyroxine Sodium 50 Mcg Tablet 50 Mcg PO DAILY07 Fish Oil (Osseo-3 Fatty Acids) 500 Mg Capsule 500 Mg PO DAILY07 Aspir 81 (Aspirin) 81 Mg Tablet.dr 81 Mg PO DAILY07 Multi Vitamin Daily (Multivitamin) 1 Each Tablet 1 Each PO DAILY07 Calcium 500 + D Tablet (Calcium Carbonate/Vitamin D3) 1 Each Tablet 1 Each PO DAILY07 Triamterene-Hctz 37.5-25 Mg Cp (Triamterene/Hydrochlorothiazid) 1 Each Capsule 1 Each PO DAILY07 Vitals/I & O Vital Sign - Last 24 Hours 11/10/19 11/10/19 11/10/19 11/10/19 19:25 19:25 20:25 20:32 Resp 20 20 Pulse Ox 97 O2 Delivery Room Air Room Air Room Air Room Air 11/10/19 11/10/19 11/10/19 11/11/19 20:34 21:03 23:00 03:00 Temp 98.6 98.8 98.6 98.8 Pulse 102 109 106 Resp 22 22 B/P (MAP) 142/82 145/93 (110) 136/84 (101) Pulse Ox 97 96 94 O2 Delivery Room Air Room Air Room Air 11/11/19 11/11/19 11/11/19 11/11/19 07:00 07:10 07:18 07:25 Temp 97.6 97.6 Pulse 84 Resp 18 20 B/P (MAP) 167/94 (118) Pulse Ox 94 96 O2 Delivery Room Air Room Air Room Air Room Air 11/11/19 11/11/19 11/11/19 11/11/19 08:58 08:59 09:00 11:00 Temp 98.1 98.1 Pulse 84 84 91 Resp 18 B/P (MAP) 167/94 167/94 145/90 (108) Pulse Ox 95 O2 Delivery Room Air Room Air 11/11/19 11/11/19 11/11/19 11/11/19 15:00 15:41 16:17 18:09 Temp 97.9 97.9 Pulse 90 Resp 18 B/P (MAP) 132/68 (89) Pulse Ox 94 97 O2 Delivery Room Air Room Air Room Air Room Air Intake and Output 11/10/19 11/10/19 11/11/19 15:00 23:00 07:00 Intake Total 1200 ml 1920 ml Output Total 1 ml 600 ml Balance 1199 ml 1320 ml Justicifation of Admission Dx: Justifications for Admission: Justification of Admission Dx: Yes Sepsis: Infection DEMARCUS JAIMES MD Nov 11, 2019 19:02
[2019-11-11] MEDS: cefTRIAXone IV Push 1 GM VIAL. IVP SCH (20:13)
[2019-11-11] MEDS: LACTOBACILLUS RHAMNOSUS GG 1 CAPSULE. PO SCH (21:00)
[2019-11-11 23:00] VITALS: BP 153/80
[2019-11-12 03:00] VITALS: BP 161/97
[2019-11-12] MEDS: traMADol 50 MG TABLET PO PRN ×3 (04:21→21:55)
[2019-11-12] MEDS: PRENATAL MULTIVITAMIN TABLET. PO SCH (06:29)
[2019-11-12] MEDS: LEVOTHYROXINE 50 MCG TABLET PO SCH (06:29)
[2019-11-12 07:00] VITALS: BP 142/111
[2019-11-12] MEDS: BUDESONIDE 0.5 MG/2 ML NEBU. NEB SCH ×2 (07:24→20:21)
[2019-11-12] MEDS: IPRATRPIUM/ALBUTEROL 0.5/2.5MG 3 ML NEBU. NEB SCH ×4 (07:24→20:21)
[2019-11-12] MEDS: METOPROLOL TART IMMED RELEASE 50 MG TABLET. PO SCH ×2 (09:19→21:42)
[2019-11-12] MEDS: PANTOPRAZOLE 40 MG TABLET.DR. PO SCH (09:19)
[2019-11-12] MEDS: MULTIVITAMIN with MINERAL TABLET. PO SCH (09:19)
[2019-11-12] MEDS: LISINOPRIL 10 MG TABLET PO SCH (09:19)
[2019-11-12] MEDS: LACTOBACILLUS RHAMNOSUS GG 1 CAPSULE. PO SCH ×2 (09:20→21:42)
[2019-11-12] MEDS: CALCIUM CARB/VIT D3 500/200 TABLET. PO SCH (09:20)
--- NOTE | 2019-11-12 09:53 | NUR ---
SW following. Discussed with RN, PT/OT recommending SNU. SW mt with pt (no isolation precautions at the time), pt would like referral faxed to [facility]. Referral phoned and faxed to [facility], pt accepted pending COVID-19 result. Pt choice of vendor form completed. SW will continue to follow.
[2019-11-12 11:00] VITALS: BP 155/105
--- NOTE | 2019-11-12 11:55 | PDOC ---
Date of Service: DATE: 11/12/19 TIME: 11:51 Subjective: Subjective: Headache, left knee pain, feels bloated and like she can't take a deep breath. Burping and passing flatus, no stool/diarrhea. Confused about discrepancy from home scale and bed scale - was 183 at home and was told 217 here. Objective: Vital Signs: Vital Signs Date Time Temp Pulse Resp B/P (MAP) Pulse Ox O2 Delivery O2 Flow Rate FiO2 11/12/19 11:37 Room Air 11/12/19 11:00 98.3 120 18 155/105 (122) 93 98.3 PE: GEN: looks a bit uncomfortable sitting in recliner LUNGS: clear HEART: RRR ABD: soft, non-tender EXTREMITY: No edema, has ice on left knee NEURO/PSYCH: A & O 3 A/P: Headache, left knee pain Bloating Diarrhea - resolved UTI R/o COVID -- Check KUB. Justicifation of Admission Dx: Justifications for Admission: Justification of Admission Dx: Yes Sepsis: Infection NELLY ROSLAES Nov 12, 2019 11:55
[2019-11-12] MEDS ORDERED: POLYETHYLENE GLYCOL 3350 17 GM PACKET. PO PRN (12:00)
[2019-11-12] MEDS ORDERED: CALCIUM CARBONATE 500 MG TAB.CHEW PO PRN (12:00)
[2019-11-12 15:00] VITALS: BP 146/84
--- NOTE | 2019-11-12 15:07 | PDOC ---
PROGRESS NOTES Date of Service: DATE: 11/12/19 TIME: 14:58 Chief Complaint Chief Complaint Nausea, vomiting, bloody diarrhea History of Present Illness History of Present Illness Nausea and vomiting have resolved. Patient does state that she feels somewhat bloated, and admits she has not had a "real bowel movement" in a while. She also notes some swelling to her right knee. States she thought she heard a pop when she was adjusting in bed yesterday, and her knee feels slightly warm and swollen. Vitals Vitals Vital Signs Date Time Temp Pulse Resp B/P (MAP) Pulse Ox O2 Delivery O2 Flow Rate FiO2 11/12/19 11:37 Room Air 11/12/19 11:00 98.3 120 18 155/105 (122) 93 98.3 Physical Exam General: Alert, Oriented X3, Cooperative Heart: Regular rate, Normal S1, Normal S2 Lungs: Wheezing Abdomen: Normal bowel sounds, Soft, No hepatosplenomegaly, Other (Mild LLQ tend erness) Extremities: No clubbing, No cyanosis, Other (Mild soft tissue swelling to the distal right femur, just above patella. No erythema.) Skin: No rashes Labs LABS Laboratory Tests Test 11/11/19 15:40 Coronavirus (PCR) Not detected (Not Detected) Review of Systems Review of Systems Mild right knee swelling, mild pain with motion. No erythema of right knee, no fever, no chills, no nausea. Assessment and Plan Assessmemt and Plan Problems Medical Problems: (1) Colitis Status: Acute, resolved (2) Nausea vomiting and diarrhea Status: Acute, resolved (3) UTI (urinary tract infection) Status: Acute, resolved (4) Right knee swelling Status: Acute Knee swelling feels superficial, likely secondary to school strain or sprain. Will evaluate with ultrasound to look for ligament damage. Recommend icing. Comment Review of Relevant I have reviewed the following items aaliyah (where applicable) has been applied. Labs Laboratory Tests Test 11/11/19 03:15 11/11/19 15:40 White Blood Count 7.1 x10^3/uL (4.0-11.0) Red Blood Count 3.93 x10^6/uL (3.50-5.40) Hemoglobin 12.8 g/dL (12.0-15.5) Hematocrit 37.8 % (36.0-47.0) Mean Corpuscular Volume 96 fL (79-100) Mean Corpuscular Hemoglobin 33 pg (25-35) Mean Corpuscular Hemoglobin Concent 34 g/dL (31-37) Red Cell Distribution Width 13.4 % (11.5-14.5) Platelet Count 173 x10^3/uL (140-400) Neutrophils (%) (Auto) 74 % (31-73) Lymphocytes (%) (Auto) 9 % (24-48) Monocytes (%) (Auto) 14 % (0-9) Eosinophils (%) (Auto) 3 % (0-3) Basophils (%) (Auto) 1 % (0-3) Neutrophils # (Auto) 5.2 x10^3/uL (1.8-7.7) Lymphocytes # (Auto) 0.7 x10^3/uL (1.0-4.8) Monocytes # (Auto) 1.0 x10^3/uL (0.0-1.1) Eosinophils # (Auto) 0.2 x10^3/uL (0.0-0.7) Basophils # (Auto) 0.1 x10^3/uL (0.0-0.2) Sodium Level 142 mmol/L (136-145) Potassium Level 3.5 mmol/L (3.5-5.1) Chloride Level 107 mmol/L (98-107) Carbon Dioxide Level 25 mmol/L (21-32) Anion Gap 10 (6-14) Blood Urea Nitrogen 10 mg/dL (7-20) Creatinine 0.9 mg/dL (0.6-1.0) Estimated GFR (Cockcroft-Gault) 60.2 Glucose Level 83 mg/dL (70-99) Calcium Level 8.8 mg/dL (8.5-10.1) Coronavirus (PCR) Not detected (Not Detected) Laboratory Tests Test 11/11/19 15:40 Coronavirus (PCR) Not detected (Not Detected) Microbiology 11/08/19 Fecal Leukocyte Stain - Final, Complete 11/07/19 Urine Culture - Final, Complete 11/07/19 Antimicrobic Susceptibility - Final, Complete Medications Current Medications Fentanyl Citrate (Fentanyl 2ml Vial) 25 mcg 1X ONCE IV Last administered on 11/07/19at 18:27; Start 11/07/19 at 18:15; Stop 11/07/19 at 18:19; Status DC Sodium Chloride 1,000 ml @ 1,000 mls/hr 1X ONCE IV Last administered on 11/07/19at 18:27; Start 11/07/19 at 18:15; Stop 11/07/19 at 19:14; Status DC Ceftriaxone Sodium (Rocephin) 1 gm 1X ONCE IVP Last administered on 11/07/19at 19:42; Start 11/07/19 at 18:45; Stop 11/07/19 at 19:00; Status DC Fentanyl Citrate (Fentanyl 2ml Vial) 25 mcg 1X ONCE IV Last administered on 11/07/19at 19:42; Start 11/07/19 at 19:30; Stop 11/07/19 at 19:33; Status DC Sodium Chloride (Normal Saline Flush) 3 ml QSHIFT PRN IV AFTER MEDS AND BLOOD DRAWS; Start 11/07/19 at 20:30 Sodium Chloride 1,000 ml @ 80 mls/hr [id number] IV Last administered on 11/11/19at 20:12; Start 11/07/19 at 20:28 Ondansetron HCl (Zofran) 4 mg PRN Q4HRS PRN IV NAUSEA/VOMITING; Start 11/07/19 at 20:30 Clonidine HCl (Catapres) 0.1 mg PRN Q6HRS PRN PO SBP>160 OR DBP>90; Start at 20:30 Albuterol Sulfate (Ventolin Neb Soln) 2.5 mg PRN Q4HRS PRN NEB SHORTNESS OF BREATH; Start 11/07/19 at 20:30 Guaifenesin (Robitussin) 200 mg PRN Q4HRS PRN PO COUGH; Start 11/07/19 at 20:30 Enoxaparin Sodium (Lovenox 40mg Syringe) 40 mg Q24H SQ ; Start 11/07/19 at 20:30; Status UNV Apixaban (Eliquis) 5 mg BID PO Last administered on 11/07/19at 23:26; Start 11/07/19 at 21:00; Stop 11/08/19 at 09:18; Status DC Aspirin (Ecotrin) 81 mg DAILY07 PO ; Start 11/08/19 at 07:00; Stop 11/08/19 at 09:18; Status DC Levothyroxine Sodium (Synthroid) 50 mcg DAILY06 PO Last administered on 11/12/19 06:29; Start 11/08/19 at 06:00 Lisinopril (Prinivil) 10 mg DAILY PO Last administered on 11/12/19 09:19; Start 11/08/19 at 09:00 Metoprolol Tartrate (Lopressor) 50 mg BID PO Last administered on 11/12/19 09:19; Start 11/07/19 at 21:00 Tramadol HCl (Ultram) 50 mg PRN Q6HRS PRN PO MODERATE PAIN 4-6 Last administered on 11/12/19 11:29; Start 11/07/19 at 20:45 Calcium/Vitamin D (Oscal D 500mg/ 200uts) 1 tab DAILYWBKFT PO Last administered on 11/12/19 09:20; Start 11/08/19 at 08:00 Multivitamins (Thera M Plus) 1 tab DAILY PO Last administered on 11/12/19 09:19; Start 11/08/19 at 09:00 Fish Oil (Fish Oil) 1,000 mg DAILY07 PO Last administered on 11/11/19 08:59; Start 11/08/19 at 07:00 Pantoprazole Sodium (Protonix) 40 mg DAILYAC PO Last administered on 11/12/19 09:19; Start 11/08/19 at 07:30 Multivit/ Folic Acid/Iron (Multivitamin ) 1 tab DAILY07 PO Last administered on 11/12/19 06:29; Start 11/08/19 at 07:00 Albuterol/ Ipratropium (Duoneb) 3 ml RTQID NEB Last administered on 11/12/19 11:37; Start 11/08/19 at 08:00 Budesonide (Pulmicort) 0.5 mg RTBID NEB Last administered on 11/12/19 07:24; Start 11/08/19 at 08:00 Info (Anti-Coagulation Monitoring By Pharmacy) 1 each PRN DAILY PRN MC SEE COMMENTS Last administered on 11/08/19at 00:40; Start 11/07/19 at 21:00 Hydromorphone HCl (Dilaudid) 0.5 mg PRN Q4HRS PRN IV SEVERE PAIN 7-10 Last administered on 11/07/19at 21:41; Start 11/07/19 at 21:30; Stop 11/08/19 at 21:29; Status DC Ceftriaxone Sodium (Rocephin) 1 gm Q24H IVP Last administered on 11/11/19at 20:13; Start 11/08/19 at 20:00 Potassium Chloride (Klor-Con) 10 meq 1X ONCE PO Last administered on 11/10/19at 15:09; Start 11/10/19 at 13:30; Stop 11/10/19 at 13:34; Status DC Lactobacillus Rhamnosus (Culturelle) 1 cap BID PO Last administered on 11/12/19at 09:20; Start 11/11/19 at 21:00 Diphenhydramine HCl (Benadryl) 25 mg PRN Q6HRS PRN IVP ITCHING; Start 11/11/19 at 11:30 Polyethylene Glycol (miraLAX PACKET) 17 gm PRN DAILY PRN PO CONSTIPATION; Start 11/12/19 at 12:00 Calcium Carbonate/ Glycine (Tums) 500 mg PRN AFTMEALHC PRN PO INDIGESTION; Start 11/12/19 at 12:00 Active Scripts Active Prednisone (Prednisone) 10 Mg Tablet 10 Mg PO UD Take 4 tablets by mouth daily for 2 days, then take 3 tablets by mouth daily for 2 days, then take 2 tablets by mouth daily for 2 days, then take 1 tablets by mouth daily for 2 days, then stop. Reported Anoro Ellipta 62.5-25 Mcg Inh (Umeclidinium Brm/Vilanterol Tr) 1 Each Disk.w.dev 1 Each IH DAILY Furosemide 20 Mg Tablet 1 Tab PO QODAY Lisinopril 10 Mg Tablet 1 Tab PO DAILY Metoprolol Tartrate 50 Mg Tablet 50 Mg PO BID Eliquis (Apixaban) 5 Mg Tablet 5 Mg PO BID Omeprazole 20 Mg Capsule. 20 Mg PO DAILY07 Tramadol Hcl 50 Mg Tablet 50 Mg PO PRN Q6HRS Extra-Virt Plus Dha Softgel ( #57/Iron/Fa/Dss/Dha) 1 Each Capsule 1 Each PO DAILY07 Levothyroxine Sodium 50 Mcg Tablet 50 Mcg PO DAILY07 Fish Oil ([place]-3 Fatty Acids) 500 Mg Capsule 500 Mg PO DAILY07 Aspir 81 (Aspirin) 81 Mg Tablet.dr 81 Mg PO DAILY07 Multi Vitamin Daily (Multivitamin) 1 Each Tablet 1 Each PO DAILY07 Calcium 500 + D Tablet (Calcium Carbonate/Vitamin D3) 1 Each Tablet 1 Each PO DAILY07 Triamterene-Hctz 37.5-25 Mg Cp (Triamterene/Hydrochlorothiazid) 1 Each Capsule 1 Each PO DAILY07 Vitals/I & O Vital Sign - Last 24 Hours 11/11/19 11/11/19 11/11/19 11/11/19 15:00 15:41 16:17 18:09 Temp 97.9 97.9 Pulse 90 Resp 18 B/P (MAP) 132/68 (89) Pulse Ox 94 97 O2 Delivery Room Air Room Air Room Air Room Air 11/11/19 11/11/19 11/11/19 11/11/19 19:00 20:02 20:06 20:10 Temp 99.4 99.4 Pulse 71 Resp 18 B/P (MAP) 166/82 (110) Pulse Ox 93 94 94 O2 Delivery Room Air Room Air Room Air Room Air 11/11/19 11/11/19 11/11/19 11/11/19 22:16 22:17 23:00 23:17 Temp 98.0 98.0 Pulse 90 102 Resp 20 18 20 B/P (MAP) 132/68 153/80 (104) Pulse Ox 94 O2 Delivery Room Air Room Air Room Air 11/12/19 11/12/19 11/12/19 11/12/19 03:00 04:21 05:21 07:00 Temp 98.2 99.4 98.2 99.4 Pulse 104 107 Resp 18 20 20 18 B/P (MAP) 161/97 (118) 142/111 (121) Pulse Ox 93 90 O2 Delivery Room Air Room Air Room Air Room Air 11/12/19 11/12/19 11/12/19 11/12/19 07:24 08:50 09:19 09:19 Pulse 107 107 B/P (MAP) 142/111 142/111 Pulse Ox 92 O2 Delivery Room Air Room Air 11/12/19 11/12/19 11/12/19 11:00 11:29 11:37 Temp 98.3 98.3 Pulse 120 Resp 18 B/P (MAP) 155/105 (122) Pulse Ox 93 O2 Delivery Room Air Room Air Room Air Intake and Output 11/11/19 11/11/19 11/12/19 15:00 23:00 07:00 Intake Total 440 ml 1000 ml 1720 ml Balance 440 ml 1000 ml 1720 ml Justicifation of Admission Dx: Justifications for Admission: Justification of Admission Dx: Yes Sepsis: Infection DEMARCUS JAIMES MD Nov 12, 2019 15:07
[2019-11-12] MEDS: IV NORMAL SALINE 1000ML BAG 1,000 ML IV SCH (15:51)
[2019-11-12] MEDS: POLYETHYLENE GLYCOL 3350 17 GM PACKET. PO SCH (16:41)
--- NOTE | 2019-11-12 16:53 | RAD ---
EXAMINATION: KUB CLINICAL HISTORY: Reason: bloating, colitis on past CT / Spl. Instructions: / History: TECHNIQUE: KUB Number of different views (projections): 2 COMPARISON: CT abdomen/pelvis 11/07/2019 FINDINGS: Nonspecific nonobstructive bowel gas pattern. No evidence of pneumoperitoneum on limited supine imaging. Cholecystectomy clips. Multilevel thoracolumbar degenerative changes. IMPRESSION: Nonspecific nonobstructive bowel gas pattern. Electronically signed by: Usman Adams DO (11/12/2019 4:50 PM) [id number]
[2019-11-12 19:50] VITALS: BP 112/76
[2019-11-12] MEDS: cefTRIAXone IV Push 1 GM VIAL. IVP SCH (21:42)
[2019-11-12 23:58] VITALS: BP 152/89
--- NOTE | 2019-11-13 00:25 | RAD ---
INDICATION: Reason: EVALUATE FOR FLUID COLLECTION AT RT QUAD / Spl. Instructions: / History: , Swelling. COMPARISON: None. FINDINGS: Focused ultrasound images are obtained of the right leg at the region of concern. There is a 98 x 58 x 16 mm complex fluid collection seen within the soft tissues. IMPRESSION: * Complex fluid collection at the subcutaneous soft tissues at the region of concern. Could be from causes such as soft tissue hematoma or seroma with debris. Cannot assess for infectious involvement on ultrasound. Electronically signed by: Dmitry Galarza MD (11/13/2019 12:22 AM) [id number]
[2019-11-13] MEDS: IV NORMAL SALINE 1000ML BAG 1,000 ML IV SCH (03:14)
[2019-11-13 03:51] VITALS: BP 139/88
[2019-11-13] MEDS: LEVOTHYROXINE 50 MCG TABLET PO SCH (06:13)
[2019-11-13] MEDS: PANTOPRAZOLE 40 MG TABLET.DR. PO SCH (06:13)
[2019-11-13] MEDS: OMEGA-3 FATTY ACIDS/FISH OIL 1,000 MG CAPSULE. PO SCH (06:13)
[2019-11-13] MEDS: MULTIVITAMIN with MINERAL TABLET. PO SCH (06:14)
[2019-11-13 07:00] VITALS: BP 145/68
[2019-11-13] MEDS: IPRATRPIUM/ALBUTEROL 0.5/2.5MG 3 ML NEBU. NEB SCH ×2 (07:20→12:00)
[2019-11-13] MEDS: BUDESONIDE 0.5 MG/2 ML NEBU. NEB SCH (07:20)
[2019-11-13] MEDS: LACTOBACILLUS RHAMNOSUS GG 1 CAPSULE. PO SCH (08:06)
[2019-11-13] MEDS: LISINOPRIL 10 MG TABLET PO SCH (08:07)
[2019-11-13] MEDS: METOPROLOL TART IMMED RELEASE 50 MG TABLET. PO SCH (08:07)
[2019-11-13] MEDS: PRENATAL MULTIVITAMIN TABLET. PO SCH (08:35)
[2019-11-13] MEDS: POLYETHYLENE GLYCOL 3350 17 GM PACKET. PO SCH (08:35)
[2019-11-13] MEDS: CALCIUM CARB/VIT D3 500/200 TABLET. PO SCH (08:35)
--- NOTE | 2019-11-13 09:40 | NUR ---
SW following. Discussed with RN and Dr. Sprague. Pt being discharged to [facility] today, COVID result negative. SW awaiting discharge paperwork.
--- NOTE | 2019-11-13 10:03 | PDOC ---
Date of Service: DATE: 11/13/19 TIME: 10:00 Subjective: Subjective: Feels better today. Had a couple normal stools. Objective: Vital Signs: Vital Signs Date Time Temp Pulse Resp B/P (MAP) Pulse Ox O2 Delivery O2 Flow Rate FiO2 11/13/19 08:07 112 145/68 11/13/19 07:22 93 Room Air 11/13/19 07:00 98.7 20 98.7 Imaging: KUB IMPRESSION: Nonspecific nonobstructive bowel gas pattern. LE US IMPRESSION: * Complex fluid collection at the subcutaneous soft tissues at the region of concern. Could be from causes such as soft tissue hematoma or seroma with debris. Cannot assess for infectious involvement on ultrasound. PE: GEN: NAD LUNGS: CTAB HEART: RRR ABD: NABS, S/ND/NT NEURO/PSYCH: A & O 3 A/P: Bloating, diarrhea - resolved UTI COVID negative -- US noted as above - defer to primary. Improved GI-diaz. Follow-up as outpt PRN. Continue PPI. Will change Miralax to PRN. Justicifation of Admission Dx: Justifications for Admission: Justification of Admission Dx: Yes Sepsis: Infection NELLY ROSALES Nov 13, 2019 10:03
[2019-11-13 10:05] LABS: BASO % 1 % (0-3); EOS # 0.1 x10^3/uL (0.0-0.7); EOS % 1 % (0-3); HEMATOCRIT 37.3 % (36.0-47.0); HEMOGLOBIN 12.9 g/dL (12.0-15.5); LYMPH # 0.5 x10^3/uL (1.0-4.8); LYMPH % 6 % (24-48); MEAN CORPUSCULAR HEMOGLOBIN 33 pg (25-35); MEAN CORPUSCULAR HGB CONC 35 g/dL (31-37); MEAN CORPUSCULAR VOLUME 96 fL (79-100); MONO # 1.2 x10^3/uL (0.0-1.1); MONO % 13 % (0-9); NEUT # 7.1 x10^3/uL (1.8-7.7); NEUT % 79 % (31-73); PLATELET COUNT 161 x10^3/uL (140-400); RED BLOOD COUNT 3.87 x10^6/uL (3.50-5.40); RED CELL DISTRIBUTION WIDTH 13.5 % (11.5-14.5); WHITE BLOOD COUNT 8.9 x10^3/uL (4.0-11.0)
[2019-11-13 10:14] LABS: CALCIUM 9.1 mg/dL (8.5-10.1); CREATININE 0.8 mg/dL (0.6-1.0); POTASSIUM 3.5 mmol/L (3.5-5.1)
[2019-11-13] MEDS ORDERED: POLYETHYLENE GLYCOL 3350 17 GM PACKET. PO PRN (10:15)
[2019-11-13 10:23] LABS: FREE T4 1.5 ng/dL (0.76-1.46); THYROID STIM HORMONE (TSH) 1.394 uIU/mL (0.358-3.74)
[2019-11-13 11:00] VITALS: BP 164/93
--- NOTE | 2019-11-13 11:43 | PDOC ---
PROGRESS NOTES Date of Service: DATE: 11/13/19 TIME: 11:39 Chief Complaint Chief Complaint Nausea, vomiting, bloody diarrhea History of Present Illness History of Present Illness Patient feels well today. Discussed ultrasound results showing collection of fluid in subcutaneous soft tissue. Discussed with patient and son that this is likely due to a muscle strain or sprain. Patient feels ready to discharge to SNF. Vitals Vitals Vital Signs Date Time Temp Pulse Resp B/P (MAP) Pulse Ox O2 Delivery O2 Flow Rate FiO2 11/13/19 08:07 112 145/68 11/13/19 08:00 Room Air 11/13/19 07:22 93 11/13/19 07:00 98.7 20 98.7 Physical Exam General: Alert, Oriented X3, Cooperative Heart: Regular rate, Normal S1, Normal S2 Lungs: Wheezing Abdomen: Normal bowel sounds, Soft, No hepatosplenomegaly, Other (Mild LLQ tenderness) Extremities: No clubbing, No cyanosis, Other (Mild soft tissue swelling to the distal right femur, just above patella. No erythema.) Skin: No rashes Labs LABS Laboratory Tests Test 11/13/19 09:10 White Blood Count 8.9 x10^3/uL (4.0-11.0) Red Blood Count 3.87 x10^6/uL (3.50-5.40) Hemoglobin 12.9 g/dL (12.0-15.5) Hematocrit 37.3 % (36.0-47.0) Mean Corpuscular Volume 96 fL (79-100) Mean Corpuscular Hemoglobin 33 pg (25-35) Mean Corpuscular Hemoglobin Concent 35 g/dL (31-37) Red Cell Distribution Width 13.5 % (11.5-14.5) Platelet Count 161 x10^3/uL (140-400) Neutrophils (%) (Auto) 79 % (31-73) Lymphocytes (%) (Auto) 6 % (24-48) Monocytes (%) (Auto) 13 % (0-9) Eosinophils (%) (Auto) 1 % (0-3) Basophils (%) (Auto) 1 % (0-3) Neutrophils # (Auto) 7.1 x10^3/uL (1.8-7.7) Lymphocytes # (Auto) 0.5 x10^3/uL (1.0-4.8) Monocytes # (Auto) 1.2 x10^3/uL (0.0-1.1) Eosinophils # (Auto) 0.1 x10^3/uL (0.0-0.7) Basophils # (Auto) 0.0 x10^3/uL (0.0-0.2) Sodium Level 139 mmol/L (136-145) Potassium Level 3.5 mmol/L (3.5-5.1) Chloride Level 104 mmol/L (98-107) Carbon Dioxide Level 28 mmol/L (21-32) Anion Gap 7 (6-14) Blood Urea Nitrogen 12 mg/dL (7-20) Creatinine 0.8 mg/dL (0.6-1.0) Estimated GFR (Cockcroft-Gault) 69.0 Glucose Level 95 mg/dL (70-99) Calcium Level 9.1 mg/dL (8.5-10.1) Thyroid Stimulating Hormone (TSH) 1.394 uIU/mL (0.358-3.74) Free Thyroxine 1.50 ng/dL (0.76-1.46) Review of Systems Review of Systems Denies fever, denies nausea, denies chest pain, denies shortness of breath. Assessment and Plan Assessmemt and Plan Problems Medical Problems: (1) Colitis Status: Acute, resolved (2) Nausea vomiting and diarrhea Status: Acute, resolved (3) UTI (urinary tract infection) Status: Acute, resolved (4) Right knee swelling Status: Acute, improving Comment Review of Relevant I have reviewed the following items aaliyah (where applicable) has been applied. Labs Laboratory Tests Test 11/11/19 15:40 11/13/19 09:10 Coronavirus (PCR) Not detected (Not Detected) White Blood Count 8.9 x10^3/uL (4.0-11.0) Red Blood Count 3.87 x10^6/uL (3.50-5.40) Hemoglobin 12.9 g/dL (12.0-15.5) Hematocrit 37.3 % (36.0-47.0) Mean Corpuscular Volume 96 fL (79-100) Mean Corpuscular Hemoglobin 33 pg (25-35) Mean Corpuscular Hemoglobin Concent 35 g/dL (31-37) Red Cell Distribution Width 13.5 % (11.5-14.5) Platelet Count 161 x10^3/uL (140-400) Neutrophils (%) (Auto) 79 % (31-73) Lymphocytes (%) (Auto) 6 % (24-48) Monocytes (%) (Auto) 13 % (0-9) Eosinophils (%) (Auto) 1 % (0-3) Basophils (%) (Auto) 1 % (0-3) Neutrophils # (Auto) 7.1 x10^3/uL (1.8-7.7) Lymphocytes # (Auto) 0.5 x10^3/uL (1.0-4.8) Monocytes # (Auto) 1.2 x10^3/uL (0.0-1.1) Eosinophils # (Auto) 0.1 x10^3/uL (0.0-0.7) Basophils # (Auto) 0.0 x10^3/uL (0.0-0.2) Sodium Level 139 mmol/L (136-145) Potassium Level 3.5 mmol/L (3.5-5.1) Chloride Level 104 mmol/L (98-107) Carbon Dioxide Level 28 mmol/L (21-32) Anion Gap 7 (6-14) Blood Urea Nitrogen 12 mg/dL (7-20) Creatinine 0.8 mg/dL (0.6-1.0) Estimated GFR (Cockcroft-Gault) 69.0 Glucose Level 95 mg/dL (70-99) Calcium Level 9.1 mg/dL (8.5-10.1) Thyroid Stimulating Hormone (TSH) 1.394 uIU/mL (0.358-3.74) Free Thyroxine 1.50 ng/dL (0.76-1.46) Laboratory Tests Test 11/13/19 09:10 White Blood Count 8.9 x10^3/uL (4.0-11.0) Red Blood Count 3.87 x10^6/uL (3.50-5.40) Hemoglobin 12.9 g/dL (12.0-15.5) Hematocrit 37.3 % (36.0-47.0) Mean Corpuscular Volume 96 fL (79-100) Mean Corpuscular Hemoglobin 33 pg (25-35) Mean Corpuscular Hemoglobin Concent 35 g/dL (31-37) Red Cell Distribution Width 13.5 % (11.5-14.5) Platelet Count 161 x10^3/uL (140-400) Neutrophils (%) (Auto) 79 % (31-73) Lymphocytes (%) (Auto) 6 % (24-48) Monocytes (%) (Auto) 13 % (0-9) Eosinophils (%) (Auto) 1 % (0-3) Basophils (%) (Auto) 1 % (0-3) Neutrophils # (Auto) 7.1 x10^3/uL (1.8-7.7) Lymphocytes # (Auto) 0.5 x10^3/uL (1.0-4.8) Monocytes # (Auto) 1.2 x10^3/uL (0.0-1.1) Eosinophils # (Auto) 0.1 x10^3/uL (0.0-0.7) Basophils # (Auto) 0.0 x10^3/uL (0.0-0.2) Sodium Level 139 mmol/L (136-145) Potassium Level 3.5 mmol/L (3.5-5.1) Chloride Level 104 mmol/L (98-107) Carbon Dioxide Level 28 mmol/L (21-32) Anion Gap 7 (6-14) Blood Urea Nitrogen 12 mg/dL (7-20) Creatinine 0.8 mg/dL (0.6-1.0) Estimated GFR (Cockcroft-Gault) 69.0 Glucose Level 95 mg/dL (70-99) Calcium Level 9.1 mg/dL (8.5-10.1) Thyroid Stimulating Hormone (TSH) 1.394 uIU/mL (0.358-3.74) Free Thyroxine 1.50 ng/dL (0.76-1.46) Microbiology 11/08/19 Fecal Leukocyte Stain - Final, Complete 11/07/19 Urine Culture - Final, Complete 11/07/19 Antimicrobic Susceptibility - Final, Complete Medications Current Medications Fentanyl Citrate (Fentanyl 2ml Vial) 25 mcg 1X ONCE IV Last administered on 11/07/19at 18:27; Start 11/07/19 at 18:15; Stop 11/07/19 at 18:19; Status DC Sodium Chloride 1,000 ml @ 1,000 mls/hr 1X ONCE IV Last administered on 11/07/19at 18:27; Start 11/07/19 at 18:15; Stop 11/07/19 at 19:14; Status DC Ceftriaxone Sodium (Rocephin) 1 gm 1X ONCE IVP Last administered on 11/07/19at 19:42; Start 11/07/19 at 18:45; Stop 11/07/19 at 19:00; Status DC Fentanyl Citrate (Fentanyl 2ml Vial) 25 mcg 1X ONCE IV Last administered on 11/07/19at 19:42; Start 11/07/19 at 19:30; Stop 11/07/19 at 19:33; Status DC Sodium Chloride (Normal Saline Flush) 3 ml QSHIFT PRN IV AFTER MEDS AND BLOOD DRAWS; Start 11/07/19 at 20:30 Sodium Chloride 1,000 ml @ 80 mls/hr [id number] IV Last administered on 11/12/19at 15:51; Start 11/07/19 at 20:28 Ondansetron HCl (Zofran) 4 mg PRN Q4HRS PRN IV NAUSEA/VOMITING; Start 11/07/19 at 20:30 Clonidine HCl (Catapres) 0.1 mg PRN Q6HRS PRN PO SBP>160 OR DBP>90; Start 11/07/19 at 20:30 Albuterol Sulfate (Ventolin Neb Soln) 2.5 mg PRN Q4HRS PRN NEB SHORTNESS OF BREATH; Start 11/07/19 at 20:30 Guaifenesin (Robitussin) 200 mg PRN Q4HRS PRN PO COUGH; Start 11/07/19 at 20:30 Enoxaparin Sodium (Lovenox 40mg Syringe) 40 mg Q24H SQ ; Start 11/07/19 at 20:30; Status UNV Apixaban (Eliquis) 5 mg BID PO Last administered on 11/07/19at 23:26; Start 11/07/19 at 21:00; Stop 11/08/19 at 09:18; Status DC Aspirin (Ecotrin) 81 mg DAILY07 PO ; Start 11/08/19 at 07:00; Stop 11/08/19 at 09:18; Status DC Levothyroxine Sodium (Synthroid) 50 mcg DAILY06 PO Last administered on 11/13/19at 06:13; Start 11/08/19 at 06:00 Lisinopril (Prinivil) 10 mg DAILY PO Last administered on 11/13/19 08:07; Start 11/08/19 at 09:00 Metoprolol Tartrate (Lopressor) 50 mg BID PO Last administered on 11/13/19 08:07; Start 11/07/19 at 21:00 Tramadol HCl (Ultram) 50 mg PRN Q6HRS PRN PO MODERATE PAIN 4-6 Last administered on 11/12/19at 21:55; Start 11/07/19 at 20:45 Calcium/Vitamin D (Oscal D 500mg/ 200uts) 1 tab DAILYWBKFT PO Last administered on 11/13/19 08:35; Start 11/08/19 at 08:00 Multivitamins (Thera M Plus) 1 tab DAILY PO Last administered on 11/13/19 06:14; Start 11/08/19 at 09:00 Fish Oil (Fish Oil) 1,000 mg DAILY07 PO Last administered on 11/13/19 06:13; Start 11/08/19 at 07:00 Pantoprazole Sodium (Protonix) 40 mg DAILYAC PO Last administered on 11/13/19 06:13; Start 11/08/19 at 07:30 Multivit/ Folic Acid/Iron (Multivitamin ) 1 tab DAILY07 PO Last administered on 11/13/19 08:35; Start 11/08/19 at 07:00 Albuterol/ Ipratropium (Duoneb) 3 ml RTQID NEB Last administered on 11/13/19 07:20; Start 11/08/19 at 08:00 Budesonide (Pulmicort) 0.5 mg RTBID NEB Last administered on 11/13/19 07:20; Start 11/08/19 at 08:00 Info (Anti-Coagulation Monitoring By Pharmacy) 1 each PRN DAILY PRN MC SEE COMMENTS Last administered on 11/08/19at 00:40; Start 11/07/19 at 21:00 Hydromorphone HCl (Dilaudid) 0.5 mg PRN Q4HRS PRN IV SEVERE PAIN 7-10 Last administered on 11/07/19 21:41; Start 11/07/19 at 21:30; Stop 11/08/19 at 21:29; Status DC Ceftriaxone Sodium (Rocephin) 1 gm Q24H IVP Last administered on 11/12/19at 21:42; Start 11/08/19 at 20:00; Stop 11/13/19 at 08:30; Status DC Potassium Chloride (Klor-Con) 10 meq 1X ONCE PO Last administered on 11/10/19at 15:09; Start 11/10/19 at 13:30; Stop 11/10/19 at 13:34; Status DC Lactobacillus Rhamnosus (Culturelle) 1 cap BID PO Last administered on 11/13/19at 08:06; Start 11/11/19 at 21:00 Diphenhydramine HCl (Benadryl) 25 mg PRN Q6HRS PRN IVP ITCHING; Start 11/11/19 at 11:30; Stop 11/13/19 at 08:30; Status DC Polyethylene Glycol (miraLAX PACKET) 17 gm PRN DAILY PRN PO CONSTIPATION; Start 11/12/19 at 12:00; Stop 11/12/19 at 15:30; Status DC Calcium Carbonate/ Glycine (Tums) 500 mg PRN AFTMEALHC PRN PO INDIGESTION; Start 11/12/19 at 12:00 Polyethylene Glycol (miraLAX PACKET) 17 gm DAILY PO Last administered on 11/12/19at 16:41; Start 11/12/19 at 17:00; Stop 11/13/19 at 10:04; Status DC Polyethylene Glycol (miraLAX PACKET) 17 gm PRN DAILY PRN PO CONSTPATION; Start 11/13/19 at 10:15 Active Scripts Active Prednisone (Prednisone) 10 Mg Tablet 10 Mg PO UD Take 4 tablets by mouth daily for 2 days, then take 3 tablets by mouth daily for 2 days, then take 2 tablets by mouth daily for 2 days, then take 1 tablets by mouth daily for 2 days, then stop. Reported Anoro Ellipta 62.5-25 Mcg Inh (Umeclidinium Brm/Vilanterol Tr) 1 Each Disk.w.dev 1 Each IH DAILY Furosemide 20 Mg Tablet 1 Tab PO QODAY Lisinopril 10 Mg Tablet 1 Tab PO DAILY Metoprolol Tartrate 50 Mg Tablet 50 Mg PO BID Eliquis (Apixaban) 5 Mg Tablet 5 Mg PO BID Omeprazole 20 Mg Capsule.dr 20 Mg PO DAILY07 Tramadol Hcl 50 Mg Tablet 50 Mg PO PRN Q6HRS Extra-Virt Plus Dha Softgel ( #57/Iron/Fa/Dss/Dha) 1 Each Capsule 1 Each PO DAILY07 Levothyroxine Sodium 50 Mcg Tablet 50 Mcg PO DAILY07 Fish Oil ([place]-3 Fatty Acids) 500 Mg Capsule 500 Mg PO DAILY07 Aspir 81 (Aspirin) 81 Mg Tablet. 81 Mg PO DAILY07 Multi Vitamin Daily (Multivitamin) 1 Each Tablet 1 Each PO DAILY07 Calcium 500 + D Tablet (Calcium Carbonate/Vitamin D3) 1 Each Tablet 1 Each PO DAILY07 Triamterene-Hctz 37.5-25 Mg Cp (Triamterene/Hydrochlorothiazid) 1 Each Capsule 1 Each PO DAILY07 Vitals/I & O Vital Sign - Last 24 Hours 11/12/19 11/12/19 11/12/19 11/12/19 15:00 15:52 19:50 20:00 Temp 98.9 99.5 98.9 99.5 Pulse 108 94 Resp 18 16 B/P (MAP) 146/84 (104) 112/76 (88) Pulse Ox 93 92 O2 Delivery Room Air Room Air Room Air Room Air 11/12/19 11/12/19 11/12/19 11/12/19 20:22 21:42 21:55 22:55 Pulse 94 Resp 20 20 B/P (MAP) 112/76 Pulse Ox 94 94 O2 Delivery Room Air Room Air 11/12/19 11/13/19 11/13/19 11/13/19 23:58 03:51 07:00 07:22 Temp 98.5 98.7 98.7 98.5 98.7 98.7 Pulse 90 80 112 Resp 16 16 20 B/P (MAP) 152/89 (110) 139/88 (105) 145/68 (93) Pulse Ox 92 92 90 93 O2 Delivery Room Air Room Air Room Air Room Air 11/13/19 11/13/19 11/13/19 08:00 08:07 08:07 Pulse 112 112 B/P (MAP) 145/68 145/68 O2 Delivery Room Air Intake and Output 11/12/19 11/12/19 11/13/19 15:00 23:00 07:00 Intake Total 200 ml Output Total 250 ml Balance 200 ml -250 ml Justicifation of Admission Dx: Justifications for Admission: Justification of Admission Dx: Yes Sepsis: Infection DEMARCUS JAIMES MD Nov 13, 2019 11:43
--- NOTE | 2019-11-13 11:51 | SNU/HH DC ---
DISCHARGE ORDERS DISCHARGE INFORMATION: DISCHARGE DATE: Nov 13, 2019 FINAL DIAGNOSIS Problems Medical Problems: (1) Colitis Status: Acute (2) Nausea vomiting and diarrhea Status: Acute (3) UTI (urinary tract infection) Status: Acute CONDITION ON DISCHARGE: Stable CODE STATUS: Code Status: DNR/DNI USP: SNF STAY <30 DAYS: Yes HOSPICE: HOSPICE: No HOSPICE EVAL & TREAT: No LTAC: ADMIT TO LTAC: No POST DISCHARGE ORDERS: ACTIVITY ORDERS: Activity as tolerated WEIGHT BEARING STATUS: As tolerated DIET AFTER DISCHARGE: Cardiac CHECKS AFTER DISCHARGE: CHECKS AFTER DISCHARGE: Check blood press - daily TREATMENT/EQUIPMENT ORDERS: RESPIRATORY EQUIPMENT NEEDED: Oxygen Physical Therapy For: Evalulation/Treatment Occupational Therapy For: Evaluation/Treatment DISCHARGE MEDICATIONS: Home Meds Active Scripts Prednisone (PREDNISONE ) 10 Mg Tablet, 10 MG PO UD, #20 TAB 0 Refills Take 4 tablets by mouth daily for 2 days, then take 3 tablets by mouth daily for 2 days, then take 2 tablets by mouth daily for 2 days, then take 1 tablets by mouth daily for 2 days, then stop. Prov:ELIZABETH MAZARIEGOS MD 01/13/18 Reported Medications Umeclidinium Brm/Vilanterol Tr (ANORO ELLIPTA 62.5-25 MCG INH) 1 Each Disk.w.dev, 1 EACH IH DAILY, INH 01/11/18 Furosemide (FUROSEMIDE) 20 Mg Tablet, 1 TAB PO QODAY, #90 TAB 1 Refill 01/11/18 Lisinopril (LISINOPRIL) 10 Mg Tablet, 1 TAB PO DAILY, #30 TAB 5 Refills 01/11/18 Metoprolol Tartrate (METOPROLOL TARTRATE) 50 Mg Tablet, 50 MG PO BID for FOR HYPERTENSION, #60 TAB 0 Refills 01/11/18 Apixaban (ELIQUIS) 5 Mg Tablet, 5 MG PO BID 08/31/14 Omeprazole (OMEPRAZOLE) 20 Mg Capsule.dr, 20 MG PO DAILY07 04/22/13 Tramadol Hcl (TRAMADOL HCL) 50 Mg Tablet, 50 MG PO PRN Q6HRS 04/22/13 #57/Iron/Fa/Dss/Dha (EXTRA-VIRT PLUS DHA SOFTGEL) 1 Each Capsule, 1 EACH PO DAILY07 04/22/13 Levothyroxine Sodium (LEVOTHYROXINE SODIUM) 50 Mcg Tablet, 50 MCG PO DAILY07 04/22/13 Mcroberts-3 Fatty Acids (FISH OIL) 500 Mg Capsule, 500 MG PO DAILY07 04/22/13 Aspirin (ASPIR 81) 81 Mg Tablet.dr, 81 MG PO DAILY07 04/22/13 Multivitamin (MULTI VITAMIN DAILY) 1 Each Tablet, 1 EACH PO DAILY07 04/22/13 Calcium Carbonate/Vitamin D3 (CALCIUM 500 + D TABLET) 1 Each Tablet, 1 EACH PO DAILY07 04/22/13 Triamterene/Hydrochlorothiazid (TRIAMTERENE-HCTZ 37.5-25 MG CP) 1 Each Capsule, 1 EACH PO DAILY07 04/22/13 Discontinued Scripts Cephalexin (KEFLEX) 500 Mg Capsule, 2 CAP PO BID, #28 CAP Prov:ELIZABETH MAZARIEGOS MD 01/13/18 Methocarbamol (ROBAXIN) 500 Mg Tablet, 1 TAB PO TID, #30 TAB Prov:ELIZABETH MAZARIEGOS MD 01/13/18 DEMARCUS JAIMES MD Nov 13, 2019 11:51
--- NOTE | 2019-11-13 12:01 | PDOC3 ---
Discharge Summary Visit Information Date of Admission: Nov 07, 2019 Date of Discharge: Nov 13, 2019 Final Diagnosis Problems Medical Problems: (1) Colitis Status: Acute (2) Nausea vomiting and diarrhea Status: Acute (3) UTI (urinary tract infection) Status: Acute Brief Hospital Course Allergies Allergies Coded Allergies Type Severity Reaction Last Updated Verified poison gary extract Allergy Severe Anaphylaxis 01/11/18 Yes Latex, Natural Rubber Allergy Intermediate DOES NOT KNOW 11/05/14 Yes adhesive Allergy Intermediate Hives 11/05/14 Yes oxaprozin Allergy Intermediate Hives 11/05/14 Yes zinc oxide Allergy Intermediate Hives 11/04/14 Yes Vital Signs Vital Signs Date Time Temp Pulse Resp B/P (MAP) Pulse Ox O2 Delivery O2 Flow Rate FiO2 11/13/19 08:07 112 145/68 11/13/19 08:00 Room Air 11/13/19 07:22 93 11/13/19 07:00 98.7 20 98.7 Lab Results Laboratory Tests Test 11/11/19 15:40 11/13/19 09:10 Coronavirus (PCR) Not detected (Not Detected) White Blood Count 8.9 x10^3/uL (4.0-11.0) Red Blood Count 3.87 x10^6/uL (3.50-5.40) Hemoglobin 12.9 g/dL (12.0-15.5) Hematocrit 37.3 % (36.0-47.0) Mean Corpuscular Volume 96 fL (79-100) Mean Corpuscular Hemoglobin 33 pg (25-35) Mean Corpuscular Hemoglobin Concent 35 g/dL (31-37) Red Cell Distribution Width 13.5 % (11.5-14.5) Platelet Count 161 x10^3/uL (140-400) Neutrophils (%) (Auto) 79 % (31-73) Lymphocytes (%) (Auto) 6 % (24-48) Monocytes (%) (Auto) 13 % (0-9) Eosinophils (%) (Auto) 1 % (0-3) Basophils (%) (Auto) 1 % (0-3) Neutrophils # (Auto) 7.1 x10^3/uL (1.8-7.7) Lymphocytes # (Auto) 0.5 x10^3/uL (1.0-4.8) Monocytes # (Auto) 1.2 x10^3/uL (0.0-1.1) Eosinophils # (Auto) 0.1 x10^3/uL (0.0-0.7) Basophils # (Auto) 0.0 x10^3/uL (0.0-0.2) Sodium Level 139 mmol/L (136-145) Potassium Level 3.5 mmol/L (3.5-5.1) Chloride Level 104 mmol/L (98-107) Carbon Dioxide Level 28 mmol/L (21-32) Anion Gap 7 (6-14) Blood Urea Nitrogen 12 mg/dL (7-20) Creatinine 0.8 mg/dL (0.6-1.0) Estimated GFR (Cockcroft-Gault) 69.0 Glucose Level 95 mg/dL (70-99) Calcium Level 9.1 mg/dL (8.5-10.1) Thyroid Stimulating Hormone (TSH) 1.394 uIU/mL (0.358-3.74) Free Thyroxine 1.50 ng/dL (0.76-1.46) Laboratory Tests Test 11/13/19 09:10 White Blood Count 8.9 x10^3/uL (4.0-11.0) Red Blood Count 3.87 x10^6/uL (3.50-5.40) Hemoglobin 12.9 g/dL (12.0-15.5) Hematocrit 37.3 % (36.0-47.0) Mean Corpuscular Volume 96 fL (79-100) Mean Corpuscular Hemoglobin 33 pg (25-35) Mean Corpuscular Hemoglobin Concent 35 g/dL (31-37) Red Cell Distribution Width 13.5 % (11.5-14.5) Platelet Count 161 x10^3/uL (140-400) Neutrophils (%) (Auto) 79 % (31-73) Lymphocytes (%) (Auto) 6 % (24-48) Monocytes (%) (Auto) 13 % (0-9) Eosinophils (%) (Auto) 1 % (0-3) Basophils (%) (Auto) 1 % (0-3) Neutrophils # (Auto) 7.1 x10^3/uL (1.8-7.7) Lymphocytes # (Auto) 0.5 x10^3/uL (1.0-4.8) Monocytes # (Auto) 1.2 x10^3/uL (0.0-1.1) Eosinophils # (Auto) 0.1 x10^3/uL (0.0-0.7) Basophils # (Auto) 0.0 x10^3/uL (0.0-0.2) Sodium Level 139 mmol/L (136-145) Potassium Level 3.5 mmol/L (3.5-5.1) Chloride Level 104 mmol/L (98-107) Carbon Dioxide Level 28 mmol/L (21-32) Anion Gap 7 (6-14) Blood Urea Nitrogen 12 mg/dL (7-20) Creatinine 0.8 mg/dL (0.6-1.0) Estimated GFR (Cockcroft-Gault) 69.0 Glucose Level 95 mg/dL (70-99) Calcium Level 9.1 mg/dL (8.5-10.1) Thyroid Stimulating Hormone (TSH) 1.394 uIU/mL (0.358-3.74) Free Thyroxine 1.50 ng/dL (0.76-1.46) Brief Hospital Course Ms. Lopez is a 79 old female who presented with colitis, urinary tract infection, weakness. She was treated with Rocephin to cover GI and organisms. Her symptoms improved, but her hospital course was complicated by weakness and physical debility. Consults were placed to physical therapy and Occupational Therapy, she was recommended intermediate facility for rehab. Discharge Information Condition at Discharge: Improved, Stable Disposition/Orders: D/C to Another Facility Scheduled Apixaban (Eliquis) 5 Mg Tablet, 5 MG PO BID, (Reported) Entered as Reported by: PRADIP VILLAGRAN on 08/31/14 1100 Last Action: Continued on 11/07/192033 by SAMI CHRISTENSEN MD Aspirin (Aspir 81) 81 Mg Tablet.dr, 81 MG PO DAILY07, (Reported) Entered as Reported by: EVERETTE BARRERA on 04/22/13808 Last Action: Continued on 11/07/192033 by SAMI CHRISTENSEN MD Calcium Carbonate/Vitamin D3 (Calcium 500 + D Tablet) 1 Each Tablet, 1 EACH PO DAILY07, (Reported) Entered as Reported by: EVERETTE BARRERA on 04/22/13 08 Last Action: Converted on 11/07/192033 by SAMI CHRISTENSEN MD Furosemide (Furosemide) 20 Mg Tablet, 1 TAB PO QODAY, #90 Ref 1 (Reported) Entered as Reported by: MARVA DEE on 01/11/18319 Last Action: HELD on 11/07/192033 by SAMI CHRISTENSEN MD Levothyroxine Sodium (Levothyroxine Sodium) 50 Mcg Tablet, 50 MCG PO DAILY07, (Reported) Entered as Reported by: EVERETTE BARRERA on 04/22/13808 Last Action: Continued on 11/07/192033 by SAMI CHRISTENSEN MD Lisinopril (Lisinopril) 10 Mg Tablet, 1 TAB PO DAILY, #30 Ref 5 (Reported) Entered as Reported by: MARVA DEE on 01/11/18319 Last Action: Continued on 11/07/192033 by SAMI CHRISTENSEN MD Metoprolol Tartrate (Metoprolol Tartrate) 50 Mg Tablet, 50 MG PO BID for FOR HYPERTENSION, #60 Ref 0 (Reported) Entered as Reported by: MARVA DEE on 01/11/18319 Last Action: Continued on 11/07/192033 by SAMI CHRISTENSEN MD Multivitamin (Multi Vitamin Daily) 1 Each Tablet, 1 EACH PO DAILY07, (Reported) Entered as Reported by: EVERETTE BARRERA on 04/22/13808 Last Action: Converted on 11/07/192033 by SAMI CHRISTENSEN MD Bunola-3 Fatty Acids (Fish Oil) 500 Mg Capsule, 500 MG PO DAILY07, (Reported) Entered as Reported by: EVERETTE ABRRERA on 04/22/13808 Last Action: Converted on 11/07/192033 by SAMI CHRISTENSEN MD Omeprazole (Omeprazole) 20 Mg Capsule.dr, 20 MG PO DAILY07, (Reported) Entered as Reported by: EVERETTE BARRERA on 04/22/13808 Last Action: Converted on 11/07/192033 by SAMI CHRISTENSEN MD Prednisone (Prednisone ) 10 Mg Tablet, 10 MG PO UD, #20 Ref 0 Take 4 tablets by mouth daily for 2 days, then take 3 tablets by mouth daily for 2 days, then take 2 tablets by mouth daily for 2 days, then take 1 tablets by mouth daily for 2 days, then stop. Prescribed by: ELIZABETH MAZARIEGOS on 01/13/18 135 Last Action: HELD on 11/07/192033 by SAMI CHRISTENSEN MD #57/Iron/Fa/Dss/Dha (Extra-Virt Plus Dha Softgel) 1 Each Capsule, 1 EACH PO DAILY07, (Reported) Entered as Reported by: EVERETTE BARRERA on 04/22/13 0809 Last Action: Converted on 11/07/192033 by SAMI CHRISTENSEN MD Tramadol Hcl (Tramadol Hcl) 50 Mg Tablet, 50 MG PO PRN Q6HRS, (Reported) Entered as Reported by: EVERETTE BARRERA on 04/22/13 0809 Last Action: Continued on 11/07/192033 by SAMI CHRISTENSEN MD Triamterene/Hydrochlorothiazid (Triamterene-Hctz 37.5-25 Mg Cp) 1 Each Capsule, 1 EACH PO DAILY07, (Reported) Entered as Reported by: EVERETTE BARRERA on 04/22/13 0809 Last Action: HELD on 11/07/192033 by SAMI CHRISTENSEN MD Umeclidinium Brm/Vilanterol Tr (Anoro Ellipta 62.5-25 Mcg Inh) 1 Each Disk.w.dev, 1 EACH IH DAILY, (Reported) Entered as Reported by: MARVA DEE on 01/11/18 0320 Last Action: Converted on 11/07/192033 by SAMI CHRISTENSEN MD Discontinued Medications Cephalexin (Keflex) 500 Mg Capsule, 2 CAP PO BID, #28 Prescribed by: ELIZABETH MAZARIEGOS on 01/13/181355 Last Action: Discontinued on 11/07/192033 by SAMI CHRISTENSEN MD Methocarbamol (Robaxin) 500 Mg Tablet, 1 TAB PO TID, #30 Prescribed by: ELIZABETH MAZARIEGOS on 01/13/18 135 Last Action: Discontinued on 11/07/192033 by SAMI CHRISTENSEN MD Justicifation of Admission Dx: Justifications for Admission: Justification of Admission Dx: Yes Sepsis: Infection DEMARCUS JAIMES MD Nov 13, 2019 12:01
[2019-11-13] MEDS: traMADol 50 MG TABLET PO PRN (12:57)
--- NOTE | 2019-11-13 14:38 | NUR ---
Report called to [facility] ext. [phone]. Discharge/and follow up instructions given to Sobeida MCKEON at . Patient was escorted out via wheelchair by transport.
== END 2019-11-13 14:41 | DRG 871 ==
LOC: ER 17:36 → 4 NORTH 19:57
PROVIDERS: ADMIT Family Medicine; ATTEND Family Medicine
DX: A41.9 Sepsis, unspecified organism (principal); N17.0 Acute kidney failure with tubular necrosis; N12 Tubulo-interstitial nephritis, not specified as acute or chronic; E03.9 Hypothyroidism, unspecified; E78.00 Pure hypercholesterolemia, unspecified; E87.6 Hypokalemia; G40.909 Epilepsy, unspecified, not intractable, without status epilepticus; I12.9 Hypertensive chronic kidney disease with stage 1 through stage 4 chronic kidney disease, or unspecified chronic kidney disease; I48.91 Unspecified atrial fibrillation; J44.9 Chronic obstructive pulmonary disease, unspecified; K21.9 Gastro-esophageal reflux disease without esophagitis; M19.90 Unspecified osteoarthritis, unspecified site; K22.70 Barrett's esophagus without dysplasia; E66.9 Obesity, unspecified; K52.9 Noninfective gastroenteritis and colitis, unspecified; N18.3 Chronic kidney disease, stage 3 (moderate); Z20.828 Contact with and (suspected) exposure to other viral communicable diseases; Z79.01 Long term (current) use of anticoagulants; Z79.899 Other long term (current) drug therapy; Z90.710 Acquired absence of both cervix and uterus; Z88.8 Allergy status to other drugs, medicaments and biological substances; Z91.040 Latex allergy status
CPT/HCPCS: 36415; 74018; 74176; 76882; 80048; 80053; 81001; 82274; 83690; 83735; 84439; 84443; 85007; 85025; 85027; 87077; 87086; 87177; 87186; 87205; 87209; 87493; 87505; 93005; 94640; 94760; 96361; 96374; 96375; 96376; J0696; J1170; J3010; J7030; 97116-GP; 97535-GO; 99285-25; G0378; J7626; U0003-CS

== ENCOUNTER → 2020-01-06 | Outpatient (CLI) | payer MEDICARE, OTHER ==
--- NOTE | 2020-01-06 17:38 | CARD ---
MR#: [id number] Date of Study: 01/06/2020 Ordering Physician: ABRAHAM HALL, Referring Physician: ABRAHAM HALL, Tech: Paola Bello APPROVED REPORT EXAM: Two-dimensional and M-mode echocardiogram with Doppler and color Doppler. Other Information Quality : AverageHR: 80bpm INDICATION Atrial Fibrillation Hypertension/HCVD RISK FACTORS Asthma 2D DIMENSIONS Left Atrium(2D)3.8 (1.6-4.0cm)IVSd1.2 (0.7-1.1cm) Aortic Root(2D)3.4 (2.0-3.7cm)LVDd4.5 (3.9-5.9cm) LVOT Diameter2.0 (1.8-2.4cm)PWd1.1 (0.7-1.1cm) LVDs2.5 (2.5-4.0cm)FS (%) 43.9 % SV69.6 ml Aortic Valve AoV Peak Reese.105.3cm/sAoV VTI20.5cm AO Peak GR.4.4mmHgLVOT Peak Reese.102.9cm/s LVOT VTI 18.53cmAO Mean GR.3mmHg ESTRELLA (VMAX)2.34ge2ONA (VTI)2.84cm2 Mitral Valve MV E Ozwxsarv259.8cm/s TDI E/Lateral E'16.0E/Medial E'21.4 Pulmonary Valve PV Peak Wkpckaur45.4cm/sPV Peak Grad.3mmHg Tricuspid Valve TR P. Xlawnxny471ft/sRAP [id number] TR Peak Gr.52ikYfCXUC81opQn LEFT VENTRICLE The left ventricle is normal size. Mild to moderate proximal septal thickening is noted. The left delon tricular systolic function is normal and the ejection fraction is within normal range. The Ejection F raction is 60-65%. There is normal LV segmental wall motion. Diastology indeterminate due to atrial f ibrillation. RIGHT VENTRICLE The right ventricle is normal size. There is normal right ventricular wall thickness. The right ventr icular systolic function is normal. ATRIA The left atrium size is normal. The right atrium size is normal. The interatrial septum is intact wit h no evidence for an atrial septal defect or patent foramen ovale as noted on 2-D or Doppler imaging. AORTIC VALVE The aortic valve is thickened but opens well. Doppler and Color Flow revealed trace aortic regurgitat ion. There is no significant aortic valvular stenosis. MITRAL VALVE The mitral valve is thickened but opens well. There is no evidence of mitral valve prolapse. There is no mitral valve stenosis. Doppler and Color-flow revealed trace mitral regurgitation. TRICUSPID VALVE The tricuspid valve is normal in structure and function. Doppler and Color Flow revealed trace tricus pid regurgitation with an estimated PAP of 37 mmHg. There is no tricuspid valve stenosis. PULMONIC VALVE The pulmonic valve is not well visualized. Doppler and Color Flow revealed no pulmonic valvular regur gitation. GREAT VESSELS The aortic root is normal in size. The IVC is normal in size and collapses >50% with inspiration. PERICARDIAL EFFUSION There is no evidence of significant pericardial effusion. Critical Notification Critical Value: No <Conclusion> The left ventricle is normal size. The left ventricular systolic function is normal and the ejection fraction is within normal range. The Ejection Fraction is 60-65%. Mild to moderate proximal septal thickening is noted. Doppler and Color Flow revealed trace aortic regurgitation. There is no significant aortic valvular stenosis. Doppler and Color-flow revealed trace mitral regurgitation. Doppler and Color Flow revealed trace tricuspid regurgitation with an estimated PAP of 37 mmHg. Signed by : Forest Connolly MD Electronically Approved : 01/06/2020 17:38:01
== END ==
LOC: ECHO 12:27
PROVIDERS: ATTEND Internal Medicine Cardiovascular Disease
DX: I48.91 Unspecified atrial fibrillation (principal); I11.9 Hypertensive heart disease without heart failure
CPT/HCPCS: 93306

== ENCOUNTER → 2020-03-17 | Outpatient (CLI) | payer MEDICARE, OTHER ==
--- NOTE | 2020-03-17 09:30 | RAD ---
US DPLX VENOUS EXTREMITY LOWER RT 03/17/2020 9:04 AM Clinical Information: Right leg edema. Comparison: None. Technique: Multiple grayscale, color Doppler, and spectral Doppler sonographic images of the lower ex tremity venous structures were obtained. Findings: The right common femoral, femoral, and popliteal veins exhibit normal compression, respiratory phasic ity, and augmentation. No intraluminal thrombi are identified. Color Doppler flow is demonstrated in the right posterior tibial veins. In the medial upper calf there is a 6.8 x 3.7 x 1.8 cm mixed echogenicity collection which is incompl etely profiled. Greater saphenous vein patent at the saphenofemoral junction. Impression: 1. No evidence of deep venous thrombosis. 2. 6.8 x 3.7 x 1.8 cm mixed echogenicity collection in the medial upper calf. Consideration may be gi delon for hematoma versus abscess. Further characterization with cross-sectional imaging may be of bene fit. Electronically signed by: Leatha Joseph MD (03/17/2020 9:27 AM) MICHELLE
== END ==
LOC: US 09:06
PROVIDERS: ATTEND Nurse Practitioner Gerontology
DX: R60.0 Localized edema (principal)
CPT/HCPCS: 93971

== ENCOUNTER → 2020-05-30 | Outpatient (CLI) | payer MEDICARE ==
[~2020-05-30] MED LIST changes: +LISI10TA16 PO; -LISI10TA2 PO; +NAPR-699 PO; -NAPR250T6 PO
--- NOTE | 2020-05-31 08:56 | RAD ---
EXAM: MRI right tibia/fibula DATE: 05/30/2020 1:52 PM CLINICAL INDICATION: Reason: RIGHT LOWER LEG EDEMA, DISTAL TIB/FIB / Spl. Instructions: / History: COMPARISON: Knee TECHNIQUE: Multiplanar, multisequence MRI of the right tibia/fibula was performed without contrast. FINDINGS: Evaluation of the knee joint and ankle joint limited given nondedicated technique. However there is l ikely a small right ankle joint effusion. T1 marrow signal is grossly preserved. No significant marrow edema is definitively identified. There is marked fatty atrophy of the medial head gastrocnemius. There is likely at least moderate fat ty atrophy of the lateral head gastrocnemius. There is also moderate fatty atrophy of the soleus musc le. Achilles tendon is grossly intact. Otherwise grossly normal muscle signal and bulk. Subcutaneous soft tissue swelling and edema about the right lower leg. IMPRESSION: 1. 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 2. At least moderate atrophy of the lateral head gastrocnemius as well as moderate fatty atrophy of the soleus is muscle belly. 3. Small ankle joint effusion. 4. No fracture or marrow edema. Electronically signed by: Mo Sullivan MD (05/31/2020 8:53 AM) [id number]
== END ==
LOC: MRI 12:44
PROVIDERS: ATTEND Nurse Practitioner Gerontology
DX: M25.471 Effusion, right ankle (principal); R60.0 Localized edema
CPT/HCPCS: 73718

== ENCOUNTER → 2021-01-11 | Outpatient (CLI) | payer MEDICARE, OTHER ==
--- NOTE | 2021-01-11 17:51 | CARD ---
MR#: [id number] Date of Study: 01/11/2021 Ordering Physician: ABRAHAM HALL, Referring Physician: ABRAHAM HALL, Tech: Paola Bello [facility] APPROVED REPORT EXAM: Two-dimensional and M-mode echocardiogram with Doppler and color Doppler. Other Information Quality : AverageHR: 99bpm INDICATION Atrial Fibrillation RISK FACTORS Hypertension Asthma 2D DIMENSIONS Left Atrium(2D)3.3 (1.6-4.0cm)IVSd1.3 (0.7-1.1cm) Aortic Root(2D)3.3 (2.0-3.7cm)LVDd4.8 (3.9-5.9cm) LVOT Diameter2.1 (1.8-2.4cm)PWd1.2 (0.7-1.1cm) LVDs3.0 (2.5-4.0cm)FS (%) 38.2 % SV75.2 ml Aortic Valve AoV Peak Reese.112.6cm/sAoV VTI21.2cm AO Peak GR.5.1mmHgLVOT Peak Reese.106.8cm/s LVOT VTI 21.61cmAO Mean GR.3mmHg ESTRELLA (VMAX)2.03ew1WLE (VTI)3.47cm2 Mitral Valve MV E Zjqvhgsn572.3cm/sMV DECEL [id number] MV E Mean Gr.2mmHgMV EIP45ro MVA (PHT)5.35cm2 TDI E/Lateral E'18.2E/Medial E'17.6 Pulmonary Valve PV Peak Smkwclvm98.9cm/sPV Peak Grad.3mmHg Tricuspid Valve TR P. Dwimyvaz083se/sTR Peak Gr.29mmHg Pulmonary Vein PVa [id number] LEFT VENTRICLE The left ventricle is normal size. There is moderate concentric left ventricular hypertrophy. The lef t ventricular systolic function is normal and the ejection fraction is within normal range. The Eject ion Fraction is 55-60%. There is normal LV segmental wall motion. Tissue Doppler imaging reveals mode rate left ventricular diastolic dysfunction. RIGHT VENTRICLE The right ventricle is normal size. There is normal right ventricular wall thickness. The right ventr icular systolic function is normal. ATRIA The left atrium is borderline dilated. The right atrium size is normal. The interatrial septum is int act with no evidence for an atrial septal defect or patent foramen ovale as noted on 2-D or Doppler i maging. AORTIC VALVE The aortic valve is not well visualized. Doppler and Color Flow revealed trace aortic regurgitation. There is no significant aortic valvular stenosis. Calculated aortic valve area is 3.34 cm2 with maxim um pressure gradient of 6 mmHg and mean pressure gradient of 4 mmHg. MITRAL VALVE The mitral valve is normal in structure and function. There is no evidence of mitral valve prolapse. There is no mitral valve stenosis. Doppler and Color-flow revealed trace mitral regurgitation. TRICUSPID VALVE The tricuspid valve is normal in structure and function. Doppler and Color Flow revealed trace tricus pid regurgitation with an estimated PAP of 36 mmHg. There is no tricuspid valve stenosis. PULMONIC VALVE The pulmonic valve is not well visualized. Doppler and Color Flow revealed trace pulmonic valvular re gurgitation. GREAT VESSELS The aortic root is normal in size. The IVC is normal in size and collapses >50% with inspiration. PERICARDIAL EFFUSION There is no evidence of significant pericardial effusion. Critical Notification Critical Value: No <Conclusion> The left ventricle is normal size. The left ventricular systolic function is normal and the ejection fraction is within normal range. The Ejection Fraction is 55-60%. There is moderate concentric left ventricular hypertrophy. Doppler and Color Flow revealed trace aortic regurgitation. There is no significant aortic valvular stenosis. Doppler and Color-flow revealed trace mitral regurgitation. Doppler and Color Flow revealed trace tricuspid regurgitation with an estimated PAP of 36 mmHg. Signed by : Forest Connolly MD Electronically Approved : 01/11/2021 17:51:30
== END ==
LOC: ECHO 13:39
PROVIDERS: ATTEND Internal Medicine Cardiovascular Disease
DX: I51.7 Cardiomegaly (principal); I48.91 Unspecified atrial fibrillation
CPT/HCPCS: 93306